=== PATIENT | male | born 1960 | race American Indian/Alaskan Native ===

== ENCOUNTER 2016-12-29 12:51 | Outpatient (CLI) | payer OTHER, MEDICARE ==
--- NOTE | 2016-12-29 14:55 | Cat Scan Report ---
CT PELVIS WITHOUT CONTRAST HISTORY: Abscess, left gluteal pain. FINDINGS: Helical CT without IV contrast was performed. There is nonspecific skin thickening and subcutaneous edema in the left gluteal region. No defined abscess or soft tissue gas is identified. There is fusion of the right SI joint and partial fusion of the left SI joint. No bony fracture, bony destruction or suspicious bone lesion is appreciated. There is moderate trabeculation of the bladder wall. No discrete bladder mass. The prostate gland is normal size. The visualized bowel loops and vascular structures in the pelvis are unremarkable. Normal appendix. No evidence for ascites or adenopathy. IMPRESSION: Findings consistent with a nonspecific cellulitis in the left gluteal region. No abscess is appreciated.
== END 2016-12-29 12:52 | disposition home or self-care (01) ==
LOC: CT 12:51
PROVIDERS: ATTEND Surgery
DX: L05.01 Pilonidal cyst with abscess (principal); N32.89 Other specified disorders of bladder; M79.1 Myalgia
CPT/HCPCS: 36415; 72192; 82565; 84520

== ENCOUNTER 2018-04-06 09:51 | Outpatient (CLI) | payer MEDICARE ==
[2018-04-06] MEDS ORDERED: XYLOCAINE TOPICAL 4% TP ONE ×2 (10:11→11:38)
[2018-04-06] MEDS ORDERED: SILVER NITRATE TP ONE ×2 (10:40→11:38)
== END 2018-04-06 09:52 | disposition home or self-care (01) ==
LOC: WOUND 09:51
PROVIDERS: ATTEND Surgery
DX: E11.622 Type 2 diabetes mellitus with other skin ulcer (principal); L89.323 Pressure ulcer of left buttock, stage 3; L98.411 Non-pressure chronic ulcer of buttock limited to breakdown of skin; L89.892 Pressure ulcer of other site, stage 2; L97.511 Non-pressure chronic ulcer of other part of right foot limited to breakdown of skin; I10 Essential (primary) hypertension; Z96.652 Presence of left artificial knee joint
CPT/HCPCS: 11042; 11045; G0463; 99215

== ENCOUNTER 2018-04-13 09:20 | Outpatient (CLI) | payer MEDICARE ==
[2018-04-13] MEDS ORDERED: XYLOCAINE TOPICAL 4% TP ONE ×2 (09:31→11:47)
== END 2018-04-13 09:21 | disposition home or self-care (01) ==
LOC: WOUND 09:20
PROVIDERS: ATTEND Surgery
DX: E11.622 Type 2 diabetes mellitus with other skin ulcer (principal); L89.323 Pressure ulcer of left buttock, stage 3; L98.411 Non-pressure chronic ulcer of buttock limited to breakdown of skin; L89.892 Pressure ulcer of other site, stage 2; L97.511 Non-pressure chronic ulcer of other part of right foot limited to breakdown of skin; I10 Essential (primary) hypertension; Z96.652 Presence of left artificial knee joint

== ENCOUNTER 2018-04-14 06:33 | Outpatient (CLI) | payer MEDICARE ==
--- NOTE | 2018-04-15 08:28 | Nuclear Medicine Report ---
TRIPLE PHASE BONE SCAN History: Right foot wound, Charcot's joint, M14.671 Technique: Blood flow, blood pool and delayed images were obtained of the right foot following 25.0 mCi of technetium 99m MDP. Findings: There are no relevant comparison studies. The perfusion images to the right lower extremity demonstrate homogeneous distribution of the radiotracer throughout the right ankle and foot region. The blood pool images demonstrate relatively homogeneous distribution of the radiotracer. There may be mild accumulation in the radiotracer on the plantar plantar soft tissues at the level of the midfoot. The delayed images demonstrate mild diffuse uptake of the radiotracer throughout the mid foot which is most suggestive of osteoarthritic changes or Charcot joint as noted in the history. No convincing focal bony uptake to suggest osteomyelitis. Impression: Cellulitis. No convincing osteomyelitis. See above. If further evaluation is needed, MRI with and without contrast should provide the most information.
== END 2018-04-14 06:34 | disposition home or self-care (01) ==
LOC: NM 06:33
PROVIDERS: ATTEND Registered Nurse
DX: M14.671 Charcot's joint, right ankle and foot (principal); I12.9 Hypertensive chronic kidney disease with stage 1 through stage 4 chronic kidney disease, or unspecified chronic kidney disease; E11.22 Type 2 diabetes mellitus with diabetic chronic kidney disease; N18.9 Chronic kidney disease, unspecified; Z89.519 Acquired absence of unspecified leg below knee; Z83.3 Family history of diabetes mellitus; Z86.2 Personal history of diseases of the blood and blood-forming organs and certain disorders involving the immune mechanism; Z82.61 Family history of arthritis
CPT/HCPCS: 78315; A9503

== ENCOUNTER 2018-04-27 09:37 | Outpatient (CLI) | payer MEDICARE ==
[2018-04-27] MEDS ORDERED: XYLOCAINE TOPICAL 4% TP ONE ×2 (10:20→14:30)
== END 2018-04-27 09:38 | disposition home or self-care (01) ==
LOC: WOUND 09:37
PROVIDERS: ATTEND Surgery
DX: E11.622 Type 2 diabetes mellitus with other skin ulcer (principal); L89.323 Pressure ulcer of left buttock, stage 3; L98.411 Non-pressure chronic ulcer of buttock limited to breakdown of skin; L89.892 Pressure ulcer of other site, stage 2; L97.511 Non-pressure chronic ulcer of other part of right foot limited to breakdown of skin; I10 Essential (primary) hypertension; Z96.652 Presence of left artificial knee joint

== ENCOUNTER 2018-05-04 09:34 | Outpatient (CLI) | payer MEDICARE ==
[2018-05-04] MEDS ORDERED: XYLOCAINE TOPICAL 4% TP ONE ×2 (09:44→09:45)
[2018-05-04] MEDS ORDERED: SILVER NITRATE TP ONE ×4 (10:06→11:07)
== END 2018-05-04 09:35 | disposition home or self-care (01) ==
LOC: WOUND 09:34
PROVIDERS: ATTEND Surgery
DX: E11.622 Type 2 diabetes mellitus with other skin ulcer (principal); L89.323 Pressure ulcer of left buttock, stage 3; L98.411 Non-pressure chronic ulcer of buttock limited to breakdown of skin; L89.892 Pressure ulcer of other site, stage 2; L97.511 Non-pressure chronic ulcer of other part of right foot limited to breakdown of skin; I10 Essential (primary) hypertension; Z96.652 Presence of left artificial knee joint

== ENCOUNTER 2018-05-18 09:45 | Outpatient (CLI) | payer MEDICARE ==
[2018-05-18] MEDS ORDERED: SILVER NITRATE TP ONE ×2 (10:20→11:02)
== END 2018-05-18 09:46 | disposition home or self-care (01) ==
LOC: WOUND 09:45
PROVIDERS: ATTEND Surgery
DX: E11.622 Type 2 diabetes mellitus with other skin ulcer (principal); L89.323 Pressure ulcer of left buttock, stage 3; L98.411 Non-pressure chronic ulcer of buttock limited to breakdown of skin; L89.892 Pressure ulcer of other site, stage 2; L97.511 Non-pressure chronic ulcer of other part of right foot limited to breakdown of skin; I10 Essential (primary) hypertension; Z96.652 Presence of left artificial knee joint

== ENCOUNTER 2018-09-07 09:29 | Outpatient (CLI) | payer MEDICARE ==
[2018-09-07] MEDS ORDERED: XYLOCAINE TOPICAL 4% TP ONE (09:33)
[2018-09-07] MEDS ORDERED: SILVER NITRATE TP ONE (09:58)
== END 2018-09-07 09:30 | disposition home or self-care (01) ==
LOC: WOUND 09:29
PROVIDERS: ATTEND Surgery
DX: E11.621 Type 2 diabetes mellitus with foot ulcer (principal); L89.893 Pressure ulcer of other site, stage 3; L97.512 Non-pressure chronic ulcer of other part of right foot with fat layer exposed; L89.323 Pressure ulcer of left buttock, stage 3; L84 Corns and callosities; L89.152 Pressure ulcer of sacral region, stage 2; L98.412 Non-pressure chronic ulcer of buttock with fat layer exposed; L98.491 Non-pressure chronic ulcer of skin of other sites limited to breakdown of skin; I10 Essential (primary) hypertension

== ENCOUNTER 2018-09-14 09:50 | Outpatient (CLI) | payer MEDICARE ==
[2018-09-14] MEDS ORDERED: SILVER NITRATE TP ONE (10:42)
== END 2018-09-14 09:51 | disposition home or self-care (01) ==
LOC: WOUND 09:50
PROVIDERS: ATTEND Surgery
DX: E11.621 Type 2 diabetes mellitus with foot ulcer (principal); L89.893 Pressure ulcer of other site, stage 3; L97.512 Non-pressure chronic ulcer of other part of right foot with fat layer exposed; L89.323 Pressure ulcer of left buttock, stage 3; L89.152 Pressure ulcer of sacral region, stage 2; L98.412 Non-pressure chronic ulcer of buttock with fat layer exposed; L98.491 Non-pressure chronic ulcer of skin of other sites limited to breakdown of skin; I10 Essential (primary) hypertension; L84 Corns and callosities

== ENCOUNTER 2018-09-21 09:37 | Outpatient (CLI) | payer MEDICARE ==
[2018-09-21] MEDS ORDERED: SILVER NITRATE TP ONE (09:44)
[2018-09-21] MEDS ORDERED: XYLOCAINE TOPICAL 4% TP ONE (09:44)
== END 2018-09-21 09:38 | disposition home or self-care (01) ==
LOC: WOUND 09:37
PROVIDERS: ATTEND Surgery
DX: E11.621 Type 2 diabetes mellitus with foot ulcer (principal); L97.512 Non-pressure chronic ulcer of other part of right foot with fat layer exposed; E11.622 Type 2 diabetes mellitus with other skin ulcer; L98.412 Non-pressure chronic ulcer of buttock with fat layer exposed; L89.323 Pressure ulcer of left buttock, stage 3; L98.491 Non-pressure chronic ulcer of skin of other sites limited to breakdown of skin; L89.152 Pressure ulcer of sacral region, stage 2; I10 Essential (primary) hypertension; Z89.512 Acquired absence of left leg below knee

== ENCOUNTER 2018-10-12 10:08 | Outpatient (CLI) | payer MEDICARE ==
[2018-10-12] MEDS ORDERED: SILVER NITRATE TP ONE (10:19)
[2018-10-12] MEDS ORDERED: XYLOCAINE TOPICAL 4% TP ONE (10:19)
== END 2018-10-12 10:09 | disposition home or self-care (01) ==
LOC: WOUND 10:08
PROVIDERS: ATTEND Surgery
DX: E11.621 Type 2 diabetes mellitus with foot ulcer (principal); L97.512 Non-pressure chronic ulcer of other part of right foot with fat layer exposed; E11.622 Type 2 diabetes mellitus with other skin ulcer; L98.412 Non-pressure chronic ulcer of buttock with fat layer exposed; L89.323 Pressure ulcer of left buttock, stage 3; L98.491 Non-pressure chronic ulcer of skin of other sites limited to breakdown of skin; L89.152 Pressure ulcer of sacral region, stage 2; I10 Essential (primary) hypertension; Z89.512 Acquired absence of left leg below knee

== ENCOUNTER 2018-11-09 10:02 | Outpatient (CLI) | payer MEDICARE ==
[2018-11-09] MEDS ORDERED: SILVER NITRATE TP ONE (10:26)
[2018-11-09] MEDS ORDERED: XYLOCAINE TOPICAL 4% TP ONE (10:26)
== END 2018-11-09 10:03 | disposition home or self-care (01) ==
LOC: WOUND 10:02
PROVIDERS: ATTEND Surgery
DX: E11.22 Type 2 diabetes mellitus with diabetic chronic kidney disease (principal); L89.323 Pressure ulcer of left buttock, stage 3; L98.412 Non-pressure chronic ulcer of buttock with fat layer exposed; E11.621 Type 2 diabetes mellitus with foot ulcer; L89.893 Pressure ulcer of other site, stage 3; L97.512 Non-pressure chronic ulcer of other part of right foot with fat layer exposed; L84 Corns and callosities; I10 Essential (primary) hypertension; Z89.512 Acquired absence of left leg below knee

== ENCOUNTER 2018-11-23 09:32 | Outpatient (CLI) | payer MEDICARE ==
[2018-11-23] MEDS ORDERED: SILVER NITRATE TP ONE (10:00)
[2018-11-23] MEDS ORDERED: XYLOCAINE TOPICAL 4% TP ONE (10:00)
== END 2018-11-23 09:33 | disposition home or self-care (01) ==
LOC: WOUND 09:32
PROVIDERS: ATTEND Surgery
DX: E11.622 Type 2 diabetes mellitus with other skin ulcer (principal); L89.323 Pressure ulcer of left buttock, stage 3; L98.412 Non-pressure chronic ulcer of buttock with fat layer exposed; E11.621 Type 2 diabetes mellitus with foot ulcer; L89.893 Pressure ulcer of other site, stage 3; L97.512 Non-pressure chronic ulcer of other part of right foot with fat layer exposed; L84 Corns and callosities; I10 Essential (primary) hypertension; Z89.512 Acquired absence of left leg below knee

== ENCOUNTER 2018-11-30 09:51 | Outpatient (CLI) | payer MEDICARE ==
[2018-11-30] MEDS ORDERED: XYLOCAINE TOPICAL 4% TP ONE (10:30)
[2018-11-30] MEDS ORDERED: SILVER NITRATE TP ONE (10:30)
== END 2018-11-30 09:52 | disposition home or self-care (01) ==
LOC: WOUND 09:51
PROVIDERS: ATTEND Surgery
DX: E11.621 Type 2 diabetes mellitus with foot ulcer (principal); L89.893 Pressure ulcer of other site, stage 3; L97.512 Non-pressure chronic ulcer of other part of right foot with fat layer exposed; E11.622 Type 2 diabetes mellitus with other skin ulcer; L89.323 Pressure ulcer of left buttock, stage 3; L98.411 Non-pressure chronic ulcer of buttock limited to breakdown of skin; L89.152 Pressure ulcer of sacral region, stage 2; L98.491 Non-pressure chronic ulcer of skin of other sites limited to breakdown of skin; I10 Essential (primary) hypertension; Z89.512 Acquired absence of left leg below knee

== ENCOUNTER 2018-12-07 10:04 | Outpatient (CLI) | payer MEDICARE ==
[2018-12-07] MEDS ORDERED: XYLOCAINE TOPICAL 4% TP ONE (11:00)
[2018-12-07] MEDS ORDERED: SILVER NITRATE TP ONE (11:00)
== END 2018-12-07 10:05 | disposition home or self-care (01) ==
LOC: WOUND 10:04
PROVIDERS: ATTEND Surgery
DX: E11.621 Type 2 diabetes mellitus with foot ulcer (principal); L89.893 Pressure ulcer of other site, stage 3; L97.512 Non-pressure chronic ulcer of other part of right foot with fat layer exposed; E11.622 Type 2 diabetes mellitus with other skin ulcer; L89.323 Pressure ulcer of left buttock, stage 3; L98.411 Non-pressure chronic ulcer of buttock limited to breakdown of skin; L89.152 Pressure ulcer of sacral region, stage 2; L98.491 Non-pressure chronic ulcer of skin of other sites limited to breakdown of skin; L84 Corns and callosities; I10 Essential (primary) hypertension; Z89.512 Acquired absence of left leg below knee

== ENCOUNTER 2018-12-09 10:05 | Day surgery (SDC) | payer MEDICARE ==
[2018-12-09] MEDS ORDERED: ceFAZolin 2 GM in NACL 0.9% 100 ML IV ONE (11:23)
[2018-12-09] MEDS ORDERED: HEPARIN SUB-Q NR (11:30)
[2018-12-09] MEDS ORDERED: LACTATED RINGERS 1,000 ML IV SCH (11:40)
[2018-12-09] MEDS ORDERED: ZEMURON IV ONE (11:59)
[2018-12-09] MEDS ORDERED: XYLOCAINE MPF 2% ONE (11:59)
[2018-12-09] MEDS ORDERED: DIPRIVAN 10 MG/ML IV ONE (11:59)
[2018-12-09] MEDS ORDERED: DILAUDID ONE (11:59)
[2018-12-09] MEDS ORDERED: LACTATED RINGERS 1,000 ML ONE (12:04)
[2018-12-09] MEDS ORDERED: ANCEF/STERILE WATER 2 GM/20 ML 2 GM/20 ML SYRINGE IV ONE (12:05)
[2018-12-09] MEDS ORDERED: MARCAINE-EPI 0.5%-1:200,000 INFILTRATI ONE ×3 (12:45→12:47)
[2018-12-09] MEDS ORDERED: ZOFRAN ONE (13:59)
[2018-12-09] MEDS ORDERED: BLOXIVERZ ONE (13:59)
[2018-12-09] MEDS ORDERED: ROBINUL ONE (13:59)
[2018-12-09] MEDS ORDERED: NACL 0.9% 1000 ML 1,000 ML ONE (14:08)
--- NOTE | 2018-12-09 14:23 | Post Operative Note ---
Pre-op diagnosis: Stage 2 pressure ulcer, sacrum Post-op diagnosis: same Procedure: Excision of left buttock sacral pressure ulcer with 19 cm intermediate closure Anesthesia: HOMEROA, other Surgeon: JAMES ROE Estimated blood loss: 50-100ml Pathology: list (sacral pressure ulcer) Specimen disposition: to lab Condition: stable Disposition: PACU
[2018-12-09 17:26] VITALS: BP 152/86
--- NOTE | 2018-12-09 17:39 | Anesthesia Consultation ---
Anesthesia Consult and Med Hx - Airway Anesthetic Teeth Evaluation: Poor ROM Head & Neck: Adequate Mental/Hyoid Distance: Adequate Intubation Access Assessment: Good - Pulmonary Exam CTA: Yes - Cardiac Exam Cardiac Exam: RRR - Pre-Operative Health Status ASA Pre-Surgery Classification: ASA3 Proposed Anesthetic Plan: General - Pulmonary Hx Smoking: No Hx Respiratory Symptoms: No SOB: No (h/o Sarcoidosis, in remission) - Cardiovascular System Hx Hypertension: Yes Hx Coronary Artery Disease: No Hx Heart Murmur: Yes Hx Peripheral Vascular Disease: Yes - Central Nervous System Hx Psychiatric Problems: No - Gastrointestinal Hx Gastroesophageal Reflux Disease: No - Endocrine Hx Renal Disease: Yes Hx Non-Insulin Dependent Diabetes: Yes (Diet controlled) - Hematic Hx Anemia: Yes (Transfused in 2005) - Other Systems Hx Cancer: No Hx Obesity: No
--- NOTE | 2018-12-09 17:39 | Anesthesia Day of Surgery ---
Anesthesia Day of Surgery - Day of Surgery Patient Examined: Yes Patient H&P Reviewed: Yes Patient is NPO: Yes
--- NOTE | 2018-12-09 17:39 | Post Anesthesia Evaluation ---
- Post Anesthesia Evaluation Patient Participated: Yes Airway Patent: Yes Stable Respiratory Function: Yes Nausea/Vomiting: No Temp > 96.8F: Yes Pain Manageable: Yes Adequeate Hydration: Yes Anesthesia Complications: No Block Receding Appropriately: Not Applicable Patient on Ventilator: No
--- NOTE | 2018-12-15 09:04 | Procedure Note ---
Date of procedure: 12/09/18 Pre-op diagnosis: Stage 2 sacral pressure ulcer - non-healing Post-op diagnosis: same Procedure: Excision of stage 2 sacral pressure ulcer with 19 cm intermediate closure Description of procedure: Pt underwent GETA while supine on the OR table. He was repositioned prone. Buttocks were prepped and draped. The sacral pressure ulcer was excised with scalpel and Bovie. Hemostasis was obtained with the Bovie. The resulting wound, measuring 19 cm in length was closed with interrupted, deep dermal sutures of 3-0 Vicryl and the skin was closed with a running 4-0 Nylon. Skin glue was applied. Pt tolerated the procedure well. He was extubated in the OR and was taken to PACU in stable condition. Anesthesia: GETA Surgeon: JAMES ROE Estimated blood loss: 50-100ml Pathology: list (Sacral pressure ulcer) Specimen disposition: to lab Condition: stable Disposition: PACU
== END 2018-12-09 10:06 | disposition home or self-care (01) ==
LOC: OR 10:05
PROVIDERS: ATTEND Surgery
DX: E11.622 Type 2 diabetes mellitus with other skin ulcer (principal); L89.322 Pressure ulcer of left buttock, stage 2; L89.152 Pressure ulcer of sacral region, stage 2; I12.9 Hypertensive chronic kidney disease with stage 1 through stage 4 chronic kidney disease, or unspecified chronic kidney disease; N18.3 Chronic kidney disease, stage 3 (moderate); E11.51 Type 2 diabetes mellitus with diabetic peripheral angiopathy without gangrene; E11.39 Type 2 diabetes mellitus with other diabetic ophthalmic complication; E11.22 Type 2 diabetes mellitus with diabetic chronic kidney disease; D72.829 Elevated white blood cell count, unspecified; H40.9 Unspecified glaucoma; I73.9 Peripheral vascular disease, unspecified; Z87.442 Personal history of urinary calculi; Z98.890 Other specified postprocedural states; Z83.3 Family history of diabetes mellitus; Z79.899 Other long term (current) drug therapy; Z89.519 Acquired absence of unspecified leg below knee; Z82.61 Family history of arthritis
CPT/HCPCS: 15931; 82962; 88304; J0690; J1170; J1644; J2405; J2704; J2710; J7030; J7120; 88305

== ENCOUNTER 2018-12-11 13:28 | Emergency (ER) | payer MEDICARE ==
--- NOTE | 2018-12-11 14:54 | Emergency Department Report ---
ED General Adult HPI - General Chief complaint: Laceration/Recheck/Suture Stated complaint: WOUND BLEED Time Seen by Provider: 12/11/18 14:33 Source: EMS Mode of arrival: Stretcher Limitations: Physical Limitation - History of Present Illness Initial comments: 58 year old male with sacral decubiti. Patient had the status opening of a primary closure of the area on 12/09/2018. This a.m. it opened. Patient denies any recent fever. He states he checked his sugar this morning was normal. He states he has a history of borderline diabetes but is not on medication. Review of his previous records show moderate chronic renal insufficiency. He has been a patient of the wound care clinic for quite some time. 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 - Related Data Home Medications Medication Instructions Recorded Confirmed Last Taken Pregabalin [Lyrica] 200 mg PO TID 05/29/16 12/09/18 12/08/18 21:00 Previous Rx's Medication Instructions Recorded Last Taken Type hydrALAZINE [Apresoline TAB] 25 mg PO Q8HR #90 tablet 08/25/14 12/08/18 21:00 Rx Acetaminophen/Codeine [Tylenol #3] 1 tab PO Q6H PRN #30 tab 04/27/16 05/28/16 Rx Sulfamethoxazole/Trimethoprim 1 each PO BID #14 tablet 12/11/18 Unknown Rx [Bactrim DS TAB] Allergies Allergy/AdvReac Type Severity Reaction Status Date / Time No Known Allergies Allergy Verified 01/05/15 14:31 ED Review of Systems ROS: Stated complaint: WOUND BLEED Other details as noted in HPI Constitutional: denies: chills, fever Eyes: denies: eye pain, eye discharge, vision change ENT: denies: ear pain, throat pain Respiratory: denies: cough, shortness of breath, wheezing Cardiovascular: denies: chest pain, palpitations Endocrine: no symptoms reported Gastrointestinal: denies: abdominal pain, nausea, diarrhea Genitourinary: denies: urgency, dysuria Musculoskeletal: denies: back pain, joint swelling, arthralgia Skin: denies: rash, lesions Neurological: denies: headache, weakness, paresthesias Psychiatric: denies: anxiety, depression Hematological/Lymphatic: denies: easy bleeding, easy bruising ED Past Medical Hx - Past Medical History Hx Hypertension: Yes Hx Diabetes: Yes Hx Renal Disease: Yes Hx Kidney Stones: Yes Hx HIV: No Additional medical history: sarcoidosis - in remission, Charcot footNEUROPATHY?? lesions on spine - Surgical History Past Surgical History?: Yes Additional Surgical History: 6 surgeries on feet due to staph infections, L BKA - Social History Smoking Status: Unknown if ever smoked Substance Use Type: None - Medications Home Medications: Home Medications Medication Instructions Recorded Confirmed Last Taken Type hydrALAZINE [Apresoline TAB] 25 mg PO Q8HR #90 tablet 08/25/14 12/09/18 12/08/18 21:00 Rx Acetaminophen/Codeine [Tylenol #3] 1 tab PO Q6H PRN #30 tab 04/27/16 12/09/18 05/28/16 Rx Pregabalin [Lyrica] 200 mg PO TID 05/29/16 12/09/18 12/08/18 21:00 History Sulfamethoxazole/Trimethoprim 1 each PO BID #14 tablet 12/11/18 Unknown Rx [Bactrim DS TAB] ED Physical Exam - General Limitations: Physical Limitation General appearance: alert - Head Head exam: Present: atraumatic - Eye Eye exam: Absent: scleral icterus - ENT ENT exam: Present: mucous membranes moist - Neck Neck exam: Absent: tenderness - Respiratory Respiratory exam: Present: normal lung sounds bilaterally. Absent: respiratory distress - Cardiovascular Cardiovascular Exam: Present: regular rate, normal rhythm. Absent: systolic murmur, diastolic murmur, rubs, gallop - GI/Abdominal GI/Abdominal exam: Present: soft, normal bowel sounds. Absent: distended, tenderness, guarding, rebound, rigid - Extremities Exam Extremities exam: Present: other (previous agitation and prosthesis.) - Neurological Exam Neurological exam: Present: CN II-XII intact (patient is able to dorsi and plantar flex his right foot with 55 strength.) - Psychiatric Psychiatric exam: Present: normal mood, flat affect - Skin Skin exam: Present: other (there is about 8 cm dehiscence of the sacral decubitus wound.Tissue is red and viable. There is no purulence. There is p erhaps some local warmth but no gross erythema.) ED Course Vital Signs 12/11/18 14:13 Temperature 98.2 F Pulse Rate 55 L Respiratory 18 Rate Blood Pressure 148/85 O2 Sat by Pulse 95 Oximetry - Reevaluation(s) Reevaluation #1: Discussed with Dr. Gee. Wet-to-dry dressings. Follow-up at the wound clinic. 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 ED Medical Decision Making - Lab Data Result diagrams: 12/11/18 15:07 12/11/18 15:07 Laboratory Results - last 24 hr 12/11/18 12/11/18 15:07 15:07 WBC 6.5 RBC 4.67 Hgb 13.6 Hct 40.0 MCV 86 MCH 29 MCHC 34 RDW 16.2 H Plt Count 128 L Lymph % (Auto) 35.6 H [place] % (Auto) 11.6 H Eos % (Auto) 6.6 H Baso % (Auto) 1.2 Lymph # 2.3 [place] # 0.8 Eos # 0.4 Baso # 0.1 Seg Neutrophils % 45.0 Seg Neutrophils # 2.9 Sodium 147 H Potassium 4.0 Chloride 109.4 H Carbon Dioxide 29 Anion Gap 13 BUN 23 H Creatinine 2.1 H Estimated GFR 40 BUN/Creatinine Ratio 11 Glucose 119 H Calcium 8.3 L Critical care attestation.: If time is entered above; I have spent that time in minutes in the direct care of this critically ill patient, excluding procedure time. ED Disposition Clinical Impression: Wound dehiscence, Chronic renal insufficiency, stage III (moderate) Sacral decubitus ulcer Qualifiers: Pressure injury stage: unspecified pressure injury stage Qualified Code(s): L89.159 - Pressure ulcer of sacral region, unspecified stage Disposition: - TO HOME OR SELFCARE Is pt being admited?: No Does the pt Need Aspirin: No Condition: Stable Instructions: Pressure Ulcer (ED), Acute Wound Care (ED) Additional Instructions: Follow-up with your primary care doctor. Increase fluids. Rx for Bactrim antibiotic. Wound care clinic on Thursday for further management per Dr. Gee. Prescriptions: Sulfamethoxazole/Trimethoprim [Bactrim DS TAB] 1 each PO BID #14 tablet Referrals: PRIMARY CARE, [Primary Care Provider] - 3-5 Days wound care, clinic Thursday [Other] - 2-3 Days Time of Disposition: 16:35
[2018-12-11 15:19] LABS: Basophils # (Auto) 0.1 K/mm3 (0.0-0.1); Basophils % (Auto) 1.2 % (0.0-1.8); Eosinophils # (Auto) 0.4 K/mm3 (0.0-0.4); Eosinophils % (Auto) 6.6 % (0.0-4.3); Hemoglobin 13.6 gm/dl (11.8-15.2); Lymphocytes # (Auto) 2.3 K/mm3 (1.2-5.4); Lymphocytes % (Auto) 35.6 % (13.4-35.0); Mean Corpuscular HGB Conc 34 % (32-34); Mean Corpuscular Volume 86 fl (84-94); Monocytes # (Auto) 0.8 K/mm3 (0.0-0.8); Monocytes % (Auto) 11.6 % (0.0-7.3); Platelet Count 128 K/mm3 (140-440); Red Blood Count 4.67 M/mm3 (3.65-5.03); Red Cell Distribution Width 16.2 % (13.2-15.2)
[2018-12-11 16:10] LABS: Calcium 8.3 mg/dL (8.4-10.2)
[2018-12-11 17:56] VITALS: BP 146/84
== END 2018-12-11 21:06 | disposition home or self-care (01) ==
LOC: ED 13:28
DX: T81.31XA Disruption of external operation (surgical) wound, not elsewhere classified, initial encounter (principal); L89.159 Pressure ulcer of sacral region, unspecified stage; I12.9 Hypertensive chronic kidney disease with stage 1 through stage 4 chronic kidney disease, or unspecified chronic kidney disease; E11.22 Type 2 diabetes mellitus with diabetic chronic kidney disease; N18.3 Chronic kidney disease, stage 3 (moderate); Y83.8 Other surgical procedures as the cause of abnormal reaction of the patient, or of later complication, without mention of misadventure at the time of the procedure; Y92.9 Unspecified place or not applicable
CPT/HCPCS: 36415; 80048; 85025; 99283

== ENCOUNTER 2018-12-29 08:39 | Outpatient (CLI) | payer MEDICARE ==
[2018-12-29] MEDS ORDERED: SILVER NITRATE TP ONE (09:30)
[2018-12-29] MEDS ORDERED: XYLOCAINE TOPICAL 4% TP ONE (09:30)
== END 2018-12-29 08:40 | disposition home or self-care (01) ==
LOC: WOUND 08:39
PROVIDERS: ATTEND Surgery
DX: E11.621 Type 2 diabetes mellitus with foot ulcer (principal); L89.893 Pressure ulcer of other site, stage 3; L97.512 Non-pressure chronic ulcer of other part of right foot with fat layer exposed; E11.622 Type 2 diabetes mellitus with other skin ulcer; L89.323 Pressure ulcer of left buttock, stage 3; L98.411 Non-pressure chronic ulcer of buttock limited to breakdown of skin; L89.152 Pressure ulcer of sacral region, stage 2; L98.491 Non-pressure chronic ulcer of skin of other sites limited to breakdown of skin; L84 Corns and callosities; I10 Essential (primary) hypertension; Z89.512 Acquired absence of left leg below knee

== ENCOUNTER 2019-01-04 10:12 | Outpatient (CLI) | payer MEDICARE ==
[2019-01-04] MEDS ORDERED: XYLOCAINE TOPICAL 4% TP ONE (11:00)
== END 2019-01-04 10:13 | disposition home or self-care (01) ==
LOC: WOUND 10:12
PROVIDERS: ATTEND Surgery
DX: E11.621 Type 2 diabetes mellitus with foot ulcer (principal); L89.893 Pressure ulcer of other site, stage 3; L97.512 Non-pressure chronic ulcer of other part of right foot with fat layer exposed; L89.323 Pressure ulcer of left buttock, stage 3; E11.622 Type 2 diabetes mellitus with other skin ulcer; L98.411 Non-pressure chronic ulcer of buttock limited to breakdown of skin; L89.152 Pressure ulcer of sacral region, stage 2; L98.491 Non-pressure chronic ulcer of skin of other sites limited to breakdown of skin; L84 Corns and callosities; I10 Essential (primary) hypertension; Z89.512 Acquired absence of left leg below knee

== ENCOUNTER 2019-01-11 10:05 | Outpatient (CLI) | payer MEDICARE ==
[2019-01-11] MEDS ORDERED: SILVER NITRATE TP ONE (11:41)
== END 2019-01-11 10:06 | disposition home or self-care (01) ==
LOC: WOUND 10:05
PROVIDERS: ATTEND Surgery
DX: E11.621 Type 2 diabetes mellitus with foot ulcer (principal); L89.893 Pressure ulcer of other site, stage 3; L97.512 Non-pressure chronic ulcer of other part of right foot with fat layer exposed; L89.323 Pressure ulcer of left buttock, stage 3; E11.622 Type 2 diabetes mellitus with other skin ulcer; L98.411 Non-pressure chronic ulcer of buttock limited to breakdown of skin; L89.152 Pressure ulcer of sacral region, stage 2; L98.491 Non-pressure chronic ulcer of skin of other sites limited to breakdown of skin; L84 Corns and callosities; Z89.512 Acquired absence of left leg below knee

== ENCOUNTER 2019-02-08 09:34 | Outpatient (CLI) | payer MEDICARE ==
[2019-02-08] MEDS ORDERED: XYLOCAINE TOPICAL 4% TP ONE (10:00)
[2019-02-08] MEDS ORDERED: SILVER NITRATE TP ONE (10:00)
== END 2019-02-08 09:35 | disposition home or self-care (01) ==
LOC: WOUND 09:34
PROVIDERS: ATTEND Surgery
DX: E11.621 Type 2 diabetes mellitus with foot ulcer (principal); L89.893 Pressure ulcer of other site, stage 3; L97.512 Non-pressure chronic ulcer of other part of right foot with fat layer exposed; L89.323 Pressure ulcer of left buttock, stage 3; E11.622 Type 2 diabetes mellitus with other skin ulcer; L98.411 Non-pressure chronic ulcer of buttock limited to breakdown of skin; L89.152 Pressure ulcer of sacral region, stage 2; L98.491 Non-pressure chronic ulcer of skin of other sites limited to breakdown of skin; L84 Corns and callosities; I10 Essential (primary) hypertension; Z89.512 Acquired absence of left leg below knee

== ENCOUNTER 2019-02-15 09:30 | Outpatient (CLI) | payer MEDICARE ==
[2019-02-15] MEDS ORDERED: SILVER NITRATE TP ONE (10:00)
[2019-02-15] MEDS ORDERED: XYLOCAINE TOPICAL 4% TP ONE (10:00)
== END 2019-02-15 09:31 | disposition home or self-care (01) ==
LOC: WOUND 09:30
PROVIDERS: ATTEND Surgery
DX: E11.621 Type 2 diabetes mellitus with foot ulcer (principal); L89.893 Pressure ulcer of other site, stage 3; L97.512 Non-pressure chronic ulcer of other part of right foot with fat layer exposed; L89.323 Pressure ulcer of left buttock, stage 3; E11.622 Type 2 diabetes mellitus with other skin ulcer; L98.411 Non-pressure chronic ulcer of buttock limited to breakdown of skin; L89.152 Pressure ulcer of sacral region, stage 2; L98.491 Non-pressure chronic ulcer of skin of other sites limited to breakdown of skin; L84 Corns and callosities; I10 Essential (primary) hypertension; Z89.512 Acquired absence of left leg below knee

== ENCOUNTER 2019-02-22 09:44 | Outpatient (CLI) | payer MEDICARE ==
[2019-02-22] MEDS ORDERED: XYLOCAINE TOPICAL 4% TP ONE (09:46)
[2019-02-22] MEDS ORDERED: SILVER NITRATE TP ONE (09:46)
== END 2019-02-22 09:45 | disposition home or self-care (01) ==
LOC: WOUND 09:44
PROVIDERS: ATTEND Surgery
DX: E11.621 Type 2 diabetes mellitus with foot ulcer (principal); L89.893 Pressure ulcer of other site, stage 3; L97.512 Non-pressure chronic ulcer of other part of right foot with fat layer exposed; L89.323 Pressure ulcer of left buttock, stage 3; E11.622 Type 2 diabetes mellitus with other skin ulcer; L98.411 Non-pressure chronic ulcer of buttock limited to breakdown of skin; L89.152 Pressure ulcer of sacral region, stage 2; L98.491 Non-pressure chronic ulcer of skin of other sites limited to breakdown of skin; L84 Corns and callosities; I10 Essential (primary) hypertension; Z89.512 Acquired absence of left leg below knee

== ENCOUNTER 2019-03-08 09:38 | Outpatient (CLI) | payer MEDICARE ==
[2019-03-08] MEDS ORDERED: SILVER NITRATE TP ONE (10:30)
[2019-03-08] MEDS ORDERED: XYLOCAINE TOPICAL 4% TP ONE (10:30)
== END 2019-03-08 09:39 | disposition home or self-care (01) ==
LOC: WOUND 09:38
PROVIDERS: ATTEND Surgery
DX: E11.622 Type 2 diabetes mellitus with other skin ulcer (principal); L89.323 Pressure ulcer of left buttock, stage 3; L98.412 Non-pressure chronic ulcer of buttock with fat layer exposed; E11.621 Type 2 diabetes mellitus with foot ulcer; L89.893 Pressure ulcer of other site, stage 3; L97.512 Non-pressure chronic ulcer of other part of right foot with fat layer exposed; L89.152 Pressure ulcer of sacral region, stage 2; L98.491 Non-pressure chronic ulcer of skin of other sites limited to breakdown of skin; L84 Corns and callosities; I10 Essential (primary) hypertension; Z89.512 Acquired absence of left leg below knee

== ENCOUNTER 2019-03-15 09:36 | Outpatient (CLI) | payer MEDICARE ==
[2019-03-15] MEDS ORDERED: SILVER NITRATE TP ONE (10:30)
== END 2019-03-15 09:37 | disposition home or self-care (01) ==
LOC: WOUND 09:36
PROVIDERS: ATTEND Surgery
DX: E11.622 Type 2 diabetes mellitus with other skin ulcer (principal); L89.323 Pressure ulcer of left buttock, stage 3; L98.412 Non-pressure chronic ulcer of buttock with fat layer exposed; E11.621 Type 2 diabetes mellitus with foot ulcer; L89.893 Pressure ulcer of other site, stage 3; L97.512 Non-pressure chronic ulcer of other part of right foot with fat layer exposed; L89.152 Pressure ulcer of sacral region, stage 2; L98.491 Non-pressure chronic ulcer of skin of other sites limited to breakdown of skin; L84 Corns and callosities; I10 Essential (primary) hypertension; Z89.512 Acquired absence of left leg below knee

== ENCOUNTER 2019-03-29 09:35 | Outpatient (CLI) | payer MEDICARE ==
[2019-03-29] MEDS ORDERED: SILVER NITRATE TP ONE (10:00)
[2019-03-29] MEDS ORDERED: XYLOCAINE TOPICAL 4% TP ONE (10:00)
== END 2019-03-29 09:36 | disposition home or self-care (01) ==
LOC: WOUND 09:35
PROVIDERS: ATTEND Surgery
DX: E11.622 Type 2 diabetes mellitus with other skin ulcer (principal); L89.323 Pressure ulcer of left buttock, stage 3; L98.412 Non-pressure chronic ulcer of buttock with fat layer exposed; E11.621 Type 2 diabetes mellitus with foot ulcer; L89.893 Pressure ulcer of other site, stage 3; L97.512 Non-pressure chronic ulcer of other part of right foot with fat layer exposed; L89.152 Pressure ulcer of sacral region, stage 2; L98.491 Non-pressure chronic ulcer of skin of other sites limited to breakdown of skin; L84 Corns and callosities; I10 Essential (primary) hypertension; Z89.512 Acquired absence of left leg below knee

== ENCOUNTER 2019-05-10 09:29 | Outpatient (CLI) | payer MEDICARE ==
[2019-05-10] MEDS ORDERED: SILVER NITRATE TP ONE (09:41)
[2019-05-10] MEDS ORDERED: XYLOCAINE TOPICAL 4% TP ONE (09:41)
== END 2019-05-10 09:30 | disposition home or self-care (01) ==
LOC: WOUND 09:29
PROVIDERS: ATTEND Surgery
DX: E11.622 Type 2 diabetes mellitus with other skin ulcer (principal); L89.323 Pressure ulcer of left buttock, stage 3; L98.492 Non-pressure chronic ulcer of skin of other sites with fat layer exposed; L89.153 Pressure ulcer of sacral region, stage 3; E11.621 Type 2 diabetes mellitus with foot ulcer; L89.893 Pressure ulcer of other site, stage 3; L97.512 Non-pressure chronic ulcer of other part of right foot with fat layer exposed; I10 Essential (primary) hypertension; Z89.512 Acquired absence of left leg below knee

== ENCOUNTER 2019-05-24 09:29 | Outpatient (CLI) | payer MEDICARE ==
[2019-05-24] MEDS ORDERED: LIDOCAINE (4%) 40 MG/ML TOPICAL SOLN 50 ML BOTTLE TP NR (10:15)
[2019-05-24] MEDS ORDERED: SILVER NITRATE APPLICATOR 1 EA TP NR (10:15)
== END 2019-05-24 09:30 | disposition home or self-care (01) ==
LOC: WOUND 09:29
PROVIDERS: ATTEND Surgery
DX: E11.622 Type 2 diabetes mellitus with other skin ulcer (principal); L89.323 Pressure ulcer of left buttock, stage 3; L98.492 Non-pressure chronic ulcer of skin of other sites with fat layer exposed; L89.153 Pressure ulcer of sacral region, stage 3; E11.621 Type 2 diabetes mellitus with foot ulcer; L89.893 Pressure ulcer of other site, stage 3; L97.512 Non-pressure chronic ulcer of other part of right foot with fat layer exposed; I10 Essential (primary) hypertension; Z89.512 Acquired absence of left leg below knee

== ENCOUNTER 2019-05-31 09:31 | Outpatient (CLI) | payer MEDICARE ==
[2019-05-31] MEDS ORDERED: LIDOCAINE (4%) 40 MG/ML TOPICAL SOLN 50 ML BOTTLE TP ONE (10:00)
== END 2019-05-31 09:32 | disposition home or self-care (01) ==
LOC: WOUND 09:31
PROVIDERS: ATTEND Surgery
DX: E11.622 Type 2 diabetes mellitus with other skin ulcer (principal); L89.323 Pressure ulcer of left buttock, stage 3; L98.492 Non-pressure chronic ulcer of skin of other sites with fat layer exposed; L89.153 Pressure ulcer of sacral region, stage 3; E11.621 Type 2 diabetes mellitus with foot ulcer; L89.893 Pressure ulcer of other site, stage 3; L97.512 Non-pressure chronic ulcer of other part of right foot with fat layer exposed; I10 Essential (primary) hypertension; Z89.512 Acquired absence of left leg below knee

== ENCOUNTER 2019-06-07 09:49 | Outpatient (CLI) | payer MEDICARE ==
[2019-06-07] MEDS ORDERED: LIDOCAINE (4%) 40 MG/ML TOPICAL SOLN 50 ML BOTTLE TP ONE (10:30)
== END 2019-06-07 09:50 | disposition home or self-care (01) ==
LOC: WOUND 09:49
PROVIDERS: ATTEND Surgery
DX: E11.622 Type 2 diabetes mellitus with other skin ulcer (principal); L89.323 Pressure ulcer of left buttock, stage 3; L98.492 Non-pressure chronic ulcer of skin of other sites with fat layer exposed; L89.153 Pressure ulcer of sacral region, stage 3; E11.621 Type 2 diabetes mellitus with foot ulcer; L89.893 Pressure ulcer of other site, stage 3; L97.512 Non-pressure chronic ulcer of other part of right foot with fat layer exposed; I10 Essential (primary) hypertension; Z89.512 Acquired absence of left leg below knee

== ENCOUNTER 2019-06-28 09:36 | Outpatient (CLI) | payer MEDICARE ==
[2019-06-28] MEDS ORDERED: LIDOCAINE (4%) 40 MG/ML TOPICAL SOLN 50 ML BOTTLE TP ONE (10:00)
[2019-06-28] MEDS ORDERED: SILVER NITRATE APPLICATOR 1 EA TP ONE (11:30)
== END 2019-06-28 09:37 | disposition home or self-care (01) ==
LOC: WOUND 09:36
PROVIDERS: ATTEND Surgery
DX: E11.622 Type 2 diabetes mellitus with other skin ulcer (principal); L89.323 Pressure ulcer of left buttock, stage 3; L98.492 Non-pressure chronic ulcer of skin of other sites with fat layer exposed; L89.153 Pressure ulcer of sacral region, stage 3; E11.621 Type 2 diabetes mellitus with foot ulcer; L89.893 Pressure ulcer of other site, stage 3; L97.512 Non-pressure chronic ulcer of other part of right foot with fat layer exposed; I10 Essential (primary) hypertension; Z89.512 Acquired absence of left leg below knee

== ENCOUNTER 2019-07-05 09:35 | Outpatient (CLI) | payer MEDICARE ==
[2019-07-05] MEDS ORDERED: LIDOCAINE (4%) 40 MG/ML TOPICAL SOLN 50 ML BOTTLE TP ONE (10:00)
== END 2019-07-05 09:36 | disposition home or self-care (01) ==
LOC: WOUND 09:35
PROVIDERS: ATTEND Surgery
DX: E11.622 Type 2 diabetes mellitus with other skin ulcer (principal); L89.323 Pressure ulcer of left buttock, stage 3; L98.492 Non-pressure chronic ulcer of skin of other sites with fat layer exposed; L89.153 Pressure ulcer of sacral region, stage 3; E11.621 Type 2 diabetes mellitus with foot ulcer; L89.893 Pressure ulcer of other site, stage 3; L97.512 Non-pressure chronic ulcer of other part of right foot with fat layer exposed; I10 Essential (primary) hypertension; Z89.512 Acquired absence of left leg below knee

== ENCOUNTER 2019-07-12 09:51 | Outpatient (CLI) | payer MEDICARE ==
[2019-07-12] MEDS ORDERED: LIDOCAINE (4%) 40 MG/ML TOPICAL SOLN 50 ML BOTTLE TP ONE (10:30)
== END 2019-07-12 09:52 | disposition home or self-care (01) ==
LOC: WOUND 09:51
PROVIDERS: ATTEND Surgery
DX: E11.622 Type 2 diabetes mellitus with other skin ulcer (principal); L89.323 Pressure ulcer of left buttock, stage 3; L98.492 Non-pressure chronic ulcer of skin of other sites with fat layer exposed; L89.153 Pressure ulcer of sacral region, stage 3; E11.621 Type 2 diabetes mellitus with foot ulcer; L89.893 Pressure ulcer of other site, stage 3; L97.512 Non-pressure chronic ulcer of other part of right foot with fat layer exposed; I10 Essential (primary) hypertension; Z89.512 Acquired absence of left leg below knee

== ENCOUNTER 2019-08-02 09:40 | Outpatient (CLI) | payer MEDICARE ==
[2019-08-02] MEDS ORDERED: LIDOCAINE (4%) 40 MG/ML TOPICAL SOLN 50 ML BOTTLE TP ONE (10:26)
[2019-08-02] MEDS ORDERED: SILVER NITRATE APPLICATOR 1 EA TP ONE (15:51)
== END 2019-08-02 09:41 | disposition home or self-care (01) ==
LOC: WOUND 09:40
PROVIDERS: ATTEND Surgery
DX: E11.622 Type 2 diabetes mellitus with other skin ulcer (principal); L89.323 Pressure ulcer of left buttock, stage 3; L98.492 Non-pressure chronic ulcer of skin of other sites with fat layer exposed; L89.153 Pressure ulcer of sacral region, stage 3; E11.621 Type 2 diabetes mellitus with foot ulcer; L89.893 Pressure ulcer of other site, stage 3; L97.512 Non-pressure chronic ulcer of other part of right foot with fat layer exposed; I10 Essential (primary) hypertension; Z89.512 Acquired absence of left leg below knee

== ENCOUNTER 2019-08-16 10:00 | Outpatient (CLI) | payer MEDICARE ==
[2019-08-16] MEDS ORDERED: LIDOCAINE (4%) 40 MG/ML TOPICAL SOLN 50 ML BOTTLE TP ONE (10:44)
[2019-08-16] MEDS ORDERED: SILVER NITRATE APPLICATOR 1 EA TP ONE (14:34)
== END 2019-08-16 10:01 | disposition home or self-care (01) ==
LOC: WOUND 10:00
PROVIDERS: ATTEND Surgery
DX: E11.622 Type 2 diabetes mellitus with other skin ulcer (principal); L89.323 Pressure ulcer of left buttock, stage 3; L98.492 Non-pressure chronic ulcer of skin of other sites with fat layer exposed; E11.621 Type 2 diabetes mellitus with foot ulcer; L97.512 Non-pressure chronic ulcer of other part of right foot with fat layer exposed; L89.153 Pressure ulcer of sacral region, stage 3; I10 Essential (primary) hypertension; Z89.512 Acquired absence of left leg below knee

== ENCOUNTER 2019-08-30 10:17 | Outpatient (CLI) | payer MEDICARE ==
[2019-08-30] MEDS ORDERED: LIDOCAINE (4%) 40 MG/ML TOPICAL SOLN 50 ML BOTTLE TP ONE (11:00)
== END 2019-08-30 10:18 | disposition home or self-care (01) ==
LOC: WOUND 10:17
PROVIDERS: ATTEND Surgery
DX: E11.622 Type 2 diabetes mellitus with other skin ulcer (principal); L89.323 Pressure ulcer of left buttock, stage 3; L98.492 Non-pressure chronic ulcer of skin of other sites with fat layer exposed; E11.621 Type 2 diabetes mellitus with foot ulcer; L97.512 Non-pressure chronic ulcer of other part of right foot with fat layer exposed; L89.152 Pressure ulcer of sacral region, stage 2; I10 Essential (primary) hypertension; Z89.512 Acquired absence of left leg below knee

== ENCOUNTER 2019-09-06 09:47 | Outpatient (CLI) | payer MEDICARE ==
[2019-09-06] MEDS ORDERED: LIDOCAINE (4%) 40 MG/ML TOPICAL SOLN 50 ML BOTTLE TP ONE (10:30)
== END 2019-09-06 09:48 | disposition home or self-care (01) ==
LOC: WOUND 09:47
PROVIDERS: ATTEND Surgery
DX: E11.622 Type 2 diabetes mellitus with other skin ulcer (principal); L89.323 Pressure ulcer of left buttock, stage 3; L98.492 Non-pressure chronic ulcer of skin of other sites with fat layer exposed; E11.621 Type 2 diabetes mellitus with foot ulcer; L97.512 Non-pressure chronic ulcer of other part of right foot with fat layer exposed; L89.152 Pressure ulcer of sacral region, stage 2; I10 Essential (primary) hypertension; Z89.512 Acquired absence of left leg below knee

== ENCOUNTER 2019-09-13 09:53 | Outpatient (CLI) | payer MEDICARE ==
[2019-09-13] MEDS ORDERED: LIDOCAINE (4%) 40 MG/ML TOPICAL SOLN 50 ML BOTTLE TP ONE (10:40)
== END 2019-09-13 09:54 | disposition home or self-care (01) ==
LOC: WOUND 09:53
PROVIDERS: ATTEND Surgery
DX: E11.622 Type 2 diabetes mellitus with other skin ulcer (principal); L89.323 Pressure ulcer of left buttock, stage 3; L98.492 Non-pressure chronic ulcer of skin of other sites with fat layer exposed; E11.621 Type 2 diabetes mellitus with foot ulcer; L97.512 Non-pressure chronic ulcer of other part of right foot with fat layer exposed; L89.152 Pressure ulcer of sacral region, stage 2; I10 Essential (primary) hypertension; L89.512 Pressure ulcer of right ankle, stage 2

== ENCOUNTER 2019-09-27 09:41 | Outpatient (CLI) | payer MEDICARE ==
[2019-09-27] MEDS ORDERED: LIDOCAINE (4%) 40 MG/ML TOPICAL SOLN 50 ML BOTTLE TP ONE (10:30)
== END 2019-09-27 09:42 | disposition home or self-care (01) ==
LOC: WOUND 09:41
PROVIDERS: ATTEND Surgery
DX: E11.622 Type 2 diabetes mellitus with other skin ulcer (principal); L89.323 Pressure ulcer of left buttock, stage 3; L98.492 Non-pressure chronic ulcer of skin of other sites with fat layer exposed; E11.621 Type 2 diabetes mellitus with foot ulcer; L97.512 Non-pressure chronic ulcer of other part of right foot with fat layer exposed; L89.152 Pressure ulcer of sacral region, stage 2; L89.512 Pressure ulcer of right ankle, stage 2; I10 Essential (primary) hypertension

== ENCOUNTER 2019-10-11 09:11 | Outpatient (CLI) | payer MEDICARE ==
[2019-10-11] MEDS ORDERED: SILVER NITRATE APPLICATOR 1 EA TP ONE (10:00)
[2019-10-11] MEDS ORDERED: LIDOCAINE (4%) 40 MG/ML TOPICAL SOLN 50 ML BOTTLE TP ONE (10:00)
== END 2019-10-11 09:12 | disposition home or self-care (01) ==
LOC: WOUND 09:11
PROVIDERS: ATTEND Surgery
DX: E11.622 Type 2 diabetes mellitus with other skin ulcer (principal); L89.323 Pressure ulcer of left buttock, stage 3; L98.492 Non-pressure chronic ulcer of skin of other sites with fat layer exposed; E11.621 Type 2 diabetes mellitus with foot ulcer; L97.512 Non-pressure chronic ulcer of other part of right foot with fat layer exposed; L89.152 Pressure ulcer of sacral region, stage 2; L89.512 Pressure ulcer of right ankle, stage 2; I10 Essential (primary) hypertension

== ENCOUNTER 2019-10-28 08:05 | Inpatient (IN) | payer MEDICARE ==
[2019-10-28 09:19] LABS: Basophils % (Auto) 0.5 % (0.0-1.8); Hematocrit 40.4 % (35.5-45.6); Hemoglobin 13.2 gm/dl (11.8-15.2); Lymphocytes # (Auto) 0.8 K/mm3 (1.2-5.4); Lymphocytes % (Auto) 11.9 % (13.4-35.0); Mean Corpuscular HGB Conc 33 % (32-34); Mean Corpuscular Volume 79 fl (84-94); Monocytes # (Auto) 0.6 K/mm3 (0.0-0.8); Monocytes % (Auto) 8.5 % (0.0-7.3); Platelet Count 158 K/mm3 (140-440); Red Cell Distribution Width 20.1 % (13.2-15.2)
[2019-10-28 09:39] LABS: Calcium 8.6 mg/dL (8.4-10.2)
--- NOTE | 2019-10-28 10:03 | Emergency Department Report ---
ED General Adult HPI - General Chief complaint: Nausea/Vomiting/Diarrhea Stated complaint: WEAKNESS/FALL Time Seen by Provider: 10/28/19 09:28 Source: patient, EMS Mode of arrival: Stretcher Limitations: Physical Limitation - History of Present Illness Initial comments: Patient presents from a local intermediate with a chief complaint of a dry cough x1 week and diarrhea. When asked about his symptoms the patient only complains that his wound care nurse cannot see him currently due to the virus. Patient denies any chest pain, abdominal pain, or headache. Per report there has been COVID 19 cases at his intermediate -: unknown Severity scale (0 -10): 0 Improves with: none Worsens with: none Associated Symptoms: denies other symptoms - Related Data Home Medications Medication Instructions Recorded Confirmed Last Taken Pregabalin [Lyrica] 200 mg PO TID 05/29/16 12/09/18 12/08/18 21:00 Previous Rx's Medication Instructions Recorded Last Taken Type hydrALAZINE [Apresoline TAB] 25 mg PO Q8HR #90 tablet 08/25/14 12/08/18 21:00 Rx Acetaminophen/Codeine [Tylenol #3] 1 tab PO Q6H PRN #30 tab 04/27/16 05/28/16 Rx Sulfamethoxazole/Trimethoprim 1 each PO BID #14 tablet 12/11/18 Unknown Rx [Bactrim DS TAB] Allergies Allergy/AdvReac Type Severity Reaction Status Date / Time No Known Allergies Allergy Verified 01/05/15 14:31 ED Review of Systems ROS: Stated complaint: WEAKNESS/FALL Other details as noted in HPI Constitutional: denies: chills, fever Eyes: denies: eye pain, eye discharge, vision change ENT: denies: ear pain, throat pain Respiratory: cough. denies: shortness of breath, wheezing Cardiovascular: denies: chest pain, palpitations Endocrine: no symptoms reported Gastrointestinal: diarrhea. denies: abdominal pain, nausea Genitourinary: denies: urgency, dysuria Musculoskeletal: denies: back pain, joint swelling, arthralgia Skin: denies: rash, lesions Neurological: denies: headache, weakness, paresthesias Psychiatric: denies: anxiety, depression Hematological/Lymphatic: denies: easy bleeding, easy bruising ED Past Medical Hx - Past Medical History Hx Hypertension: Yes Hx Diabetes: Yes Hx Renal Disease: Yes Hx Kidney Stones: Yes Hx HIV: No Additional medical history: sarcoidosis - in remission, Charcot footNEUROPATHY?? lesions on spine - Surgical History Additional Surgical History: 6 surgeries on feet due to staph infections, L BKA - Social History Smoking Status: Never Smoker Substance Use Type: None - Medications Home Medications: Home Medications Medication Instructions Recorded Confirmed Last Taken Type hydrALAZINE [Apresoline TAB] 25 mg PO Q8HR #90 tablet 08/25/14 12/09/18 12/08/18 21:00 Rx Acetaminophen/Codeine [Tylenol #3] 1 tab PO Q6H PRN #30 tab 04/27/16 12/09/18 05/28/16 Rx Pregabalin [Lyrica] 200 mg PO TID 05/29/16 12/09/18 12/08/18 21:00 History Sulfamethoxazole/Trimethoprim 1 each PO BID #14 tablet 12/11/18 Unknown Rx [Bactrim DS TAB] ED Physical Exam - General Limitations: Physical Limitation General appearance: alert, in no apparent distress - Head Head exam: Present: atraumatic, normocephalic - Eye Eye exam: Present: normal appearance, PERRL, EOMI - ENT ENT exam: Present: mucous membranes moist - Neck Neck exam: Present: normal inspection - Respiratory Respiratory exam: Present: normal lung sounds bilaterally. Absent: respiratory distress - Cardiovascular Cardiovascular Exam: Present: regular rate, normal rhythm. Absent: systolic murmur, diastolic murmur, rubs, gallop - GI/Abdominal GI/Abdominal exam: Present: soft, normal bowel sounds, other (Decubitus ulcer of the sacrumunstageable). Absent: distended, tenderness - Rectal Rectal exam: Present: deferred - Extremities Exam Extremities exam: Present: normal inspection, other (Decubitus ulcers to bilateral heels) - Back Exam Back exam: Present: normal inspection - Neurological Exam Neurological exam: Present: alert, oriented X3 - Psychiatric Psychiatric exam: Present: normal affect, normal mood - Skin Skin exam: Present: warm, dry, intact, normal color. Absent: rash ED Course Vital Signs 10/28/19 09:00 Temperature 98.8 F Pulse Rate 82 Respiratory 15 Rate Blood Pressure 97/55 O2 Sat by Pulse 94 Oximetry ED Medical Decision Making - Lab Data Result diagrams: 10/28/19 08:15 10/28/19 08:15 Lab Results 10/28/19 10/28/19 10/28/19 Range/Units 08:15 08:15 11:22 WBC 6.5 (4.5-11.0) K/mm3 RBC 5.10 H (3.65-5.03) M/mm3 Hgb 13.2 (11.8-15.2) gm/dl Hct 40.4 (35.5-45.6) % MCV 79 L (84-94) fl MCH 26 L (28-32) pg MCHC 33 (32-34) % RDW 20.1 H (13.2-15.2) % Plt Count 158 (140-440) K/mm3 Lymph % (Auto) 11.9 L (13.4-35.0) % [place] % (Auto) 8.5 H (0.0-7.3) % Eos % (Auto) 0.0 (0.0-4.3) % Baso % (Auto) 0.5 (0.0-1.8) % Lymph # 0.8 L (1.2-5.4) K/mm3 [place] # 0.6 (0.0-0.8) K/mm3 Eos # 0.0 (0.0-0.4) K/mm3 Baso # 0.0 (0.0-0.1) K/mm3 Seg Neutrophils % 79.1 H (40.0-70.0) % Seg Neutrophils # 5.1 (1.8-7.7) K/mm3 Sodium 141 (137-145) mmol/L Potassium 5.9 H (3.6-5.0) mmol/L Chloride 107.4 H (98-107) mmol/L Carbon Dioxide 15 L (22-30) mmol/L Anion Gap 25 mmol/L BUN 117 H (9-20) mg/dL Creatinine 6.1 H (0.8-1.5) mg/dL Estimated GFR 12 ml/min BUN/Creatinine Ratio 19 % Glucose 40 L (75-100) mg/dL Calcium 8.6 (8.4-10.2) mg/dL Total Bilirubin 0.40 (0.1-1.2) mg/dL AST 233 H (5-40) units/L ALT 60 H (7-56) units/L Alkaline Phosphatase 92 (35-129) units/L Total Protein 8.0 (6.3-8.2) g/dL Albumin 2.9 L (3.9-5) g/dL Albumin/Globulin Ratio 0.6 % Lipase 89 H (13-60) units/L - Radiology Data Radiology results: report reviewed - Medical Decision Making COVID 19 laboratory studies done IV antibiotics given Patient will be admitted Critical Care Time: Yes Critical care time in (mins) excluding proc time.: 35 Critical care attestation.: If time is entered above; I have spent that time in minutes in the direct care of this critically ill patient, excluding procedure time. ED Disposition Clinical Impression: Bilateral pneumonia Disposition: OP ADMIT IP TO THIS HOSP Is pt being admited?: Yes Does the pt Need Aspirin: No Condition: Fair Referrals: PRIMARY CARE, [Primary Care Provider] - 3-5 Days
[2019-10-28] MEDS ORDERED: DEXTROSE 50% IN WATER (25GM) 50 ML SYRINGE IV ONE ×2 (10:37→11:00)
[2019-10-28] MEDS ORDERED: DEXTROSE 50% IN WATER (25GM) 50 ML VIAL IV ONE (10:45)
--- NOTE | 2019-10-28 11:45 | Cat Scan Report ---
CT CHEST WITHOUT CONTRAST INDICATION: Cough, pneumonia. Patient is a resident of a detention with COVID19 patients. TECHNIQUE: Axial CT images were obtained through the chest without contrast. Lack of IV contrast limits evaluati on of the vascular and solid organs. Coronal and sagittal reformats were produced. All CT scans at is location are performed using CT dose reduction for ALARA by means of automated exposure control. COMPARISON: 2 views of the chest from 09/26/2015. FINDINGS: Motion artifact limits the study. MEDIASTINUM: Multiple shotty mediastinal nodes are seen without a suspicious mass. Multiple calcified mediastinal nodes are also noted. No additional significant abnormality. HEART: No significant abnormality. THORACIC AORTA AND ARTERIES: No significant abnormality. LUNGS: Scattered ground glass opacities are seen throughout the upper and middle lobes with more dens e generalized areas of consolidation seen along the right middle lobe, lingula and the lower lobes. N o suspicious nodule or mass is seen. No pneumothorax or pleural effusion is identified. ADDITIONAL FINDINGS: None. UPPER ABDOMEN: No significant abnormality. SKELETAL SYSTEM: No significant abnormality. IMPRESSION: Findings consistent with bilateral pneumonia of uncertain etiology. Typical and atypical bacterial an d viral etiologies should both be considered. Signer Name: Ozzie Serrano MD Signed: 10/28/2019 11:40 AM Workstation Name: [id number]
--- NOTE | 2019-10-28 11:50 | Cat Scan Report ---
CT ABDOMEN AND PELVIS WITHOUT CONTRAST INDICATION: Abdominal pain. Cough. Pneumonia. COMPARISON: CT pelvis without contrast from 12/29/2016. TECHNIQUE: Axial, coronal and sagittal CT imaging of the abdomen and pelvis was performed without co ntrast. Lack of intravenous contrast limits evaluation of the vascular and solid organs. All CT sca ns at this location are performed using CT dose reduction for ALARA by means of automated exposure co ntrol. FINDINGS: Motion artifact limits this study. LOWER CHEST: Bibasilar consolidations are present. No additional significant abnormality. LIVER: No significant abnormality. BILIARY: No significant abnormality. PANCREAS: No significant abnormality. SPLEEN: No significant abnormality. ADRENALS: No significant abnormality. KIDNEYS AND URETERS: There is severe bilateral hydroureteronephrosis without visualization of an obst ructive stone or mass. Mild to moderate bilateral renal cortical thinning is noted. No additional sig nificant abnormality. GI TRACT: Liquid stool is seen along the colon without an additional significant abnormality of the c olon, appendix, small bowel or stomach. PERITONEUM: No free fluid. No free air. No fluid collection. LYMPH NODES: No significant adenopathy. VASCULATURE: There is mild generalized atherosclerosis without an additional significant abnormality. URINARY BLADDER: Mild to moderate distention of the bladder is noted without an additional significan t abnormality. REPRODUCTIVE ORGANS: No significant abnormality. ADDITIONAL FINDINGS: None. SKELETAL SYSTEM: No acute abnormality. IMPRESSION: 1. Severe bilateral hydroureteronephrosis with distention of the bladder may represent urinary retent ion. Please correlate with the clinical findings. 2. Findings consistent with bibasilar pneumonia. Please see the report for the CT of the chest perfor [facility] for further details. Signer Name: Ozzie Serrano MD Signed: 10/28/2019 11:46 AM Workstation Name: [id number]
[2019-10-28 12:25] LABS: Alanine Aminotransferase 60 units/L (7-56); Albumin 2.9 g/dL (3.9-5)
[2019-10-28] MEDS ORDERED: CEFEPIME/NS 2 GM/100 ML 2 GM/100 ML BAG IV ONE (13:08)
--- NOTE | 2019-10-28 13:08 | History and Physical Report ---
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 Patient is confused/lethargic and unable to provide detailed history at the time of my evaluation. Patient history taken from EMS, ED staff, and [facility] staff. As per staff the patient had experienced worsening confusion, increased weakness, dry cough, and multiple loose stools over the past week with worsening of the aforementioned symptoms over the last 2 days. EMS notified and upon arrival the patient was found to be in distress and subsequently transported to [facility] for further evaluation and care. Patient seen and evaluated in the emergency department. Lab and imaging studies reviewed. Patient found to have bilateral diffuse infiltrates on his chest x-ray consistent with bilateral interstitial pneumonia commonly seen with COVID19 infection, acute kidney injury with con comitant chronic kidney disease, metabolic acidosis, metabolic encephalopathy. No further history is obtainable. Patient admitted to medical floor. Patient initiated on pneumonia protocol, as well as COVID-19 protocol. Nephrology service consult placed in ED. no prior admission for review. All medication listed at time of admission has been reconciled. Advanced care planning conducted in ED. Past History Past Medical History: diabetes, hypertension, renal failure, other (See HPI) Past Surgical History: Other (Left BKA) Social history: . denies: smoking, alcohol abuse, prescription drug ab use, IV drug use Family history: diabetes, hypertension Medications and Allergies Allergies Allergy/AdvReac Type Severity Reaction Status Date / Time No Known Allergies Allergy Verified 01/05/15 14:31 Home Medications Medication Instructions Recorded Confirmed Last Taken Type hydrALAZINE [Apresoline TAB] 25 mg PO Q8HR #90 tablet 08/25/14 12/09/18 12/08/18 21:00 Rx Acetaminophen/Codeine [Tylenol #3] 1 tab PO Q6H PRN #30 tab 04/27/16 12/09/18 05/28/16 Rx Pregabalin [Lyrica] 200 mg PO TID 05/29/16 12/09/18 12/08/18 21:00 History Sulfamethoxazole/Trimethoprim 1 each PO BID #14 tablet 12/11/18 Unknown Rx [Bactrim DS TAB] Review of Systems ROS unobtainable: due to mental status Exam - Constitutional Vitals: Temp Pulse Resp BP Pulse Ox 98.8 F 82 15 97/55 94 10/28/19 09:00 10/28/19 09:00 10/28/19 09:00 10/28/19 09:00 10/28/19 09:00 General appearance: Present: mild distress - EENT Eyes: Present: PERRL ENT: hearing intact, clear oral mucosa - Neck Neck: Present: supple, normal ROM - Respiratory Respiratory effort: normal Respiratory: bilateral: diminished, rhonchi - Cardiovascular Heart Sounds: Present: S1 & S2. Absent: rub, click - Extremities Extremities: pulses symmetrical, No edema Peripheral Pulses: within normal limits - Abdominal General gastrointestinal: Present: soft, non-tender, non-distended, normal bowel sounds Male genitourinary: Present: normal - Integumentary Integumentary: Present: clear, warm, dry - Musculoskeletal Musculoskeletal: generalized weakness - Psychiatric Psychiatric: no appropriate mood/affect, no intact judgment & insight, no memory intact - Neurologic Neurologic: CNII-XII intact, moves all extremities Results - Labs CBC & Chem 7: 10/28/19 13:31 10/28/19 08:15 Labs: Abnormal lab results 10/28/19 10/28/19 10/28/19 Range/Units 08:15 08:15 11:22 RBC 5.10 H (3.65-5.03) M/mm3 MCV 79 L (84-94) fl MCH 26 L (28-32) pg RDW 20.1 H (13.2-15.2) % Lymph % (Auto) 11.9 L (13.4-35.0) % [place] % (Auto) 8.5 H (0.0-7.3) % Lymph # 0.8 L (1.2-5.4) K/mm3 Seg Neutrophils % 79.1 H (40.0-70.0) % Potassium 5.9 H (3.6-5.0) mmol/L Chloride 107.4 H (98-107) mmol/L Carbon Dioxide 15 L (22-30) mmol/L BUN 117 H (9-20) mg/dL Creatinine 6.1 H (0.8-1.5) mg/dL Glucose 40 L (75-100) mg/dL AST 233 H (5-40) units/L ALT 60 H (7-56) units/L Albumin 2.9 L (3.9-5) g/dL Lipase 89 H (13-60) units/L Assessment and Plan - Patient Problems (1) Bilateral pneumonia Current Visit: Yes Status: Acute Qualifiers: Lung location: lower lobe of lung Plan to address problem: Pneumonia protocol: Chest x-ray, CBC, CMP, supplemental oxygen, nebulizer therapy, IV antibiotic therapy, blood culture (2) Suspected COVID-19 virus infection Current Visit: Yes Status: Acute Plan to address problem: D-dimer, LDH, procalcitonin, ferritin level, testing documentation sent to health department in the emergency department. (3) RAFAEL (acute kidney injury) Current Visit: Yes Status: Acute Plan to address problem: BMP, renal ultrasound, nephrology consult placed in the emergency department, strict I/O, monitor urine output every shift, IV fluid resuscitation therapy as clinically indicated. (4) Acidosis Current Visit: Yes Status: Acute Plan to address problem: IV fluid resuscitation therapy, supportive care, repeat BMP in a.m. (5) Hyperkalemia Current Visit: Yes Status: Acute Plan to address problem: Calcium gluconate, Kayexalate, no EKG changes. (6) Metabolic encephalopathy Current Visit: Yes Status: Acute Plan to address problem: Suspected secondary to uremia. IV fluid resuscitation therapy as clinically indicated, BMP, repeat BMP in a.m., (7) DVT prophylaxis Current Visit: Yes Status: Acute Plan to address problem: SCD to bilateral lower extremities while in bed, prophylactic heparin. (8) Advanced care planning/counseling discussion Current Visit: Yes Status: Acute Plan to address problem: Patient is full code, disease education conducted, +30 minutes.
[2019-10-28 13:12] LABS: Bilirubin,Direct < 0.2 mg/dL (0-0.2)
[2019-10-28] MEDS ORDERED: ALBUTEROL 2.5 MG/3 ML NEBU IH PRN (13:12)
[2019-10-28] MEDS ORDERED: ONDANSETRON 4 MG/2 ML INJ IV PRN (13:12)
[2019-10-28] MEDS ORDERED: PREGABALIN 200 MG PO SCH (14:00)
[2019-10-28 14:04] LABS: Basophils % (Auto) 0.6 % (0.0-1.8); Eosinophils % (Auto) 0.2 % (0.0-4.3); Hematocrit 38.8 % (35.5-45.6); Hemoglobin 12.6 gm/dl (11.8-15.2); Lymphocytes # (Auto) 0.9 K/mm3 (1.2-5.4); Lymphocytes % (Auto) 18.1 % (13.4-35.0); Mean Corpuscular HGB Conc 32 % (32-34); Mean Corpuscular Volume 80 fl (84-94); Monocytes # (Auto) 0.5 K/mm3 (0.0-0.8); Monocytes % (Auto) 9.6 % (0.0-7.3); Platelet Count 129 K/mm3 (140-440); Red Blood Count 4.86 M/mm3 (3.65-5.03)
[2019-10-28] MEDS ORDERED: PREGABALIN 75 MG CAP ONE (14:06)
[2019-10-28] MEDS ORDERED: PREGABALIN 25 MG CAP ONE (14:06)
[2019-10-28] MEDS ORDERED: SODIUM CHLORIDE 0.9% 1000 ML 0 ML ONE (14:07)
[2019-10-28 14:22] LABS: Red Cell Distribution Width 20.2 % (13.2-15.2)
[2019-10-28] MEDS ORDERED: ACETAMINOPHEN W/CODEINE 300-30 MG TAB ONE (14:40)
[2019-10-28] MEDS: ACETAMINOPHEN W/CODEINE 300-30 MG TAB PO PRN (14:41)
[2019-10-28] MEDS: PREGABALIN 75 MG CAP PO SCH ×2 (15:04→21:45)
[2019-10-28] MEDS: PREGABALIN 25 MG CAP PO SCH ×2 (15:05→21:45)
[2019-10-28 15:23] LABS: Bacteria,Urine 4+ /HPF (Negative); Bilirubin,Urine NEG (Negative); Blood,Urine MOD (Negative); Color,Urine Yellow (Yellow); Mucus,Urine FEW /HPF; Urobilinogen,Urine < 2.0 mg/dL (<2.0)
[2019-10-28 15:24] LABS: Creatinine,Urine 86.8 mg/dL (0.1-20.0)
[2019-10-28 15:25] LABS: WBC,Urine > 182.0 /HPF (0.0-6.0)
[2019-10-28] MEDS ORDERED: SODIUM POLYSTYRENE 15 GM/60 ML ORAL LIQD PO ONE (16:00)
[2019-10-28] MEDS ORDERED: CALCIUM GLUCONATE 1,000 MG in SODIUM CHLORIDE 0.9% 100 ML IV ONE (16:00)
[2019-10-28 16:58] LABS: Albumin 3.1 g/dL (3.9-5); Calcium 8.5 mg/dL (8.4-10.2)
[2019-10-28] MEDS: SODIUM POLYSTYRENE 15 GM/60 ML ORAL LIQD PO ONE ×2 (21:44→22:16)
[2019-10-28] MEDS ORDERED: HYDROcodone/ACETAMINOPHEN 10-325MG TAB PO ONE (22:34)
[2019-10-29 00:26] LABS: C-Reactive Protein 27.9 mg/dL (0.00-1.30)
[2019-10-29 01:29] LABS: Bacteria,Urine 4+ /HPF (Negative); Bilirubin,Urine NEG (Negative); Blood,Urine LG (Negative); Color,Urine Yellow (Yellow); Urobilinogen,Urine < 2.0 mg/dL (<2.0)
[2019-10-29 01:33] LABS: WBC,Urine > 182.0 /HPF (0.0-6.0)
[2019-10-29 07:49] LABS: Calcium 8.6 mg/dL (8.4-10.2)
[2019-10-29] MEDS: DEXTROSE 50% IN WATER (25GM) 50 ML SYRINGE IV PRN ×2 (08:04→12:35)
[2019-10-29] MEDS: PREGABALIN 25 MG CAP PO SCH ×2 (08:05→13:47)
[2019-10-29] MEDS: PREGABALIN 75 MG CAP PO SCH ×2 (08:05→13:48)
[2019-10-29] MEDS: ACETAMINOPHEN 325 MG TAB PO PRN ×3 (12:35→21:30)
--- NOTE | 2019-10-29 13:26 | Progress Note ---
Assessment and Plan (1) Bilateral pneumonia Current Visit: Yes Status: Acute Qualifiers: Lung location: lower lobe of lung Plan to address problem: Pneumonia protocol: Chest x-ray, CBC, CMP, supplemental oxygen, nebulizer therapy, IV antibiotic therapy, blood culture Covid test pending (2) Suspected COVID-19 virus infection Current Visit: Yes Status: Acute Plan to address problem: D-dimer, LDH, procalcitonin, ferritin level, testing documentation sent to health department in the emergency department. Cover test pending (3) RAFAEL (acute kidney injury) on CKD Current Visit: Yes Status: Acute Plan to address problem: BMP, renal ultrasound, nephrology consult placed in the emergency department, strict I/O, monitor urine output every shift, IV fluid resuscitation therapy as clinically indicated. IV fluids for now (4) Acidosis Current Visit: Yes Status: Acute Plan to address problem: IV fluid resuscitation therapy, supportive care, repeat BMP in a.m. Acidosis better on day 2 (5) Hyperkalemia Current Visit: Yes Status: Acute Plan to address problem: Calcium gluconate, Kayexalate, Potassium level improved (6) Metabolic encephalopathy Current Visit: Yes Status: Acute Plan to address problem: Suspected secondary to uremia. IV fluid resuscitation therapy as clinically indicated, BMP, repeat BMP in a.m., (7) DVT prophylaxis Current Visit: Yes Status: Acute Plan to address problem: SCD to bilateral lower extremities while in bed, prophylactic heparin. (8) Advanced care planning/counseling discussion Current Visit: Yes Status: Acute Plan to address problem: Patient is full code, disease education conducted, +30 minutes. 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 Patient is confused/lethargic and unable to provide detailed history at the time of my evaluation. Patient history taken from EMS, ED staff, and senior care facility staff. As per staff the patient had experienced worsening confusion, increased weakness, dry cough, and multiple loose stools over the past week with worsening of the aforementioned symptoms over the last 2 days. EMS notified and upon arrival the patient was found to be in distress and subsequently transported to [facility] for further evaluation and care. Patient seen and evaluated in the emergency department. Lab and imaging studies reviewed. Patient found to have bilateral diffuse infiltrates on his chest x-ray consistent with bilateral interstitial pneumonia commonly seen with COVID19 infection, acute kidney injury with concomitant chronic kidney disease, metabolic acidosis, metabolic encephalopathy. No further history is obtainable. Patient admitted to medical floor. Patient initiated on pneumonia protocol, as well as COVID-19 protocol. Nephrology service consult placed in ED. no prior admission for review. All medication listed at time of admission has been reconciled. Advanced care plan quita conducted in ED. Objective - Constitutional Vitals: Vital Signs - 12hr 10/29/19 10/29/19 10/29/19 04:45 05:42 10:00 Temperature 99.5 F Pulse Rate 80 Respiratory 20 Rate Blood Pressure 85/50 99/56 O2 Sat by Pulse 95 95 Oximetry 10/29/19 12:01 Temperature 103.0 F H Pulse Rate 92 H Respiratory 22 Rate Blood Pressure 94/54 O2 Sat by Pulse 93 Oximetry General appearance: Present: mild distress, well-nourished - EENT Eyes: PERRL, EOM intact ENT: hearing intact, clear oral mucosa Ears: bilateral: normal - Neck Neck: supple, normal ROM - Respiratory Respiratory effort: normal Respiratory: bilateral: CTA, rhonchi - Breasts Breasts: normal - Cardiovascular Heart rate: 88 Rhythm: regular Heart Sounds: Present: S1 & S2. Absent: gallop, rub Extremities: pulses intact, No edema, normal color, Full ROM - Gastrointestinal General gastrointestinal: Present: soft, non-tender, non-distended, normal bowel sounds - Genitourinary Male genitourinary: normal - Integumentary Integumentary: clear, warm, dry - Musculoskeletal Musculoskeletal: 1, strength equal bilaterally - Neurologic Neurologic: moves all extremities - Psychiatric Psychiatric: memory intact, appropriate mood/affect, intact judgment & insight - Labs CBC & Chem 7: 10/28/19 13:31 10/29/19 06:59 Labs: Abnormal lab results 10/28/19 10/28/19 10/28/19 Range/Units 10:44 13:31 13:31 MCV (84-94) fl MCH (28-32) pg RDW (13.2-15.2) % Plt Count (140-440) K/mm3 [place] % (Auto) (0.0-7.3) % Lymph # (1.2-5.4) K/mm3 Seg Neutrophils % (40.0-70.0) % D-Dimer 1579.04 H (0-234) ng/mlDDU Sodium (137-145) mmol/L Chloride (98-107) mmol/L Carbon Dioxide (22-30) mmol/L BUN (9-20) mg/dL Creatinine (0.8-1.5) mg/dL Glucose (75-100) mg/dL POC Glucose 48 L (70-105) Phosphorus (2.5-4.5) mg/dL Ferritin 1098.0 H (13.0-400.0) ng/mL AST (5-40) units/L ALT (7-56) units/L Lactate Dehydrogenase (91-180) units/L C-Reactive Protein (0.00-1.30) mg/dL Albumin (3.9-5) g/dL PTH Intact (15-65) pg/mL Urine WBC (Auto) (0.0-6.0) /HPF Urine Creatinine (0.1-20.0) mg/dL 10/28/19 10/28/19 10/28/19 Range/Units 13:31 13:31 13:31 MCV 80 L (84-94) fl MCH 26 L (28-32) pg RDW 20.2 H (13.2-15.2) % Plt Count 129 L (140-440) K/mm3 Snyder % (Auto) 9.6 H (0.0-7.3) % Lymph # 0.9 L (1.2-5.4) K/mm3 Seg Neutrophils % 71.5 H (40.0-70.0) % D-Dimer (0-234) ng/mlDDU Sodium (137-145) mmol/L Chloride 114.4 H (98-107) mmol/L Carbon Dioxide 15 L (22-30) mmol/L BUN 121 H (9-20) mg/dL Creatinine 6.3 H (0.8-1.5) mg/dL Glucose 114 H (75-100) mg/dL POC Glucose (70-105) Phosphorus (2.5-4.5) mg/dL Ferritin (13.0-400.0) ng/mL AST 222 H (5-40) units/L ALT 61 H (7-56) units/L Lactate Dehydrogenase 716 H (91-180) units/L C-Reactive Protein 27.90 H (0.00-1.30) mg/dL Albumin 3.1 L (3.9-5) g/dL PTH Intact (15-65) pg/mL Urine WBC (Auto) (0.0-6.0) /HPF Urine Creatinine (0.1-20.0) mg/dL 10/28/19 10/28/19 10/28/19 Range/Units 14:25 14:55 14:55 MCV (84-94) fl MCH (28-32) pg RDW (13.2-15.2) % Plt Count (140-440) K/mm3 Snyder % (Auto) (0.0-7.3) % Lymph # (1.2-5.4) K/mm3 Seg Neutrophils % (40.0-70.0) % D-Dimer (0-234) ng/mlDDU Sodium (137-145) mmol/L Chloride (98-107) mmol/L Carbon Dioxide (22-30) mmol/L BUN (9-20) mg/dL Creatinine (0.8-1.5) mg/dL Glucose (75-100) mg/dL POC Glucose 61 L (70-105) Phosphorus (2.5-4.5) mg/dL Ferritin (13.0-400.0) ng/mL AST (5-40) units/L ALT (7-56) units/L Lactate Dehydrogenase (91-180) units/L C-Reactive Protein (0.00-1.30) mg/dL Albumin (3.9-5) g/dL PTH Intact (15-65) pg/mL Urine WBC (Auto) > 182.0 H (0.0-6.0) /HPF Urine Creatinine 86.8 H (0.1-20.0) mg/dL 10/29/19 10/29/19 10/29/19 Range/Units 00:47 06:59 06:59 MCV (84-94) fl MCH (28-32) pg RDW (13.2-15.2) % Plt Count (140-440) K/mm3 [place] % (Auto) (0.0-7.3) % Lymph # (1.2-5.4) K/mm3 Seg Neutrophils % (40.0-70.0) % D-Dimer (0-234) ng/mlDDU Sodium 149 H (137-145) mmol/L Chloride 115.4 H (98-107) mmol/L Carbon Dioxide 15 L (22-30) mmol/L BUN 130 H (9-20) mg/dL Creatinine 5.9 H (0.8-1.5) mg/dL Glucose 48 L (75-100) mg/dL POC Glucose (70-105) Phosphorus 5.10 H (2.5-4.5) mg/dL Ferritin (13.0-400.0) ng/mL AST (5-40) units/L ALT (7-56) units/L Lactate Dehydrogenase (91-180) units/L C-Reactive Protein (0.00-1.30) mg/dL Albumin (3.9-5) g/dL PTH Intact 120.0 H (15-65) pg/mL Urine WBC (Auto) > 182.0 H (0.0-6.0) /HPF Urine Creatinine (0.1-20.0) mg/dL /11/13 Range/Units 07:59 MCV (84-94) fl MCH (28-32) pg RDW (13.2-15.2) % Plt Count (140-440) K/mm3 Snyder % (Auto) (0.0-7.3) % Lymph # (1.2-5.4) K/mm3 Seg Neutrophils % (40.0-70.0) % D-Dimer (0-234) ng/mlDDU Sodium (137-145) mmol/L Chloride (98-107) mmol/L Carbon Dioxide (22-30) mmol/L BUN (9-20) mg/dL Creatinine (0.8-1.5) mg/dL Glucose (75-100) mg/dL POC Glucose 45 L (70-105) Phosphorus (2.5-4.5) mg/dL Ferritin (13.0-400.0) ng/mL AST (5-40) units/L ALT (7-56) units/L Lactate Dehydrogenase (91-180) units/L C-Reactive Protein (0.00-1.30) mg/dL Albumin (3.9-5) g/dL PTH Intact (15-65) pg/mL Urine WBC (Auto) (0.0-6.0) /HPF Urine Creatinine (0.1-20.0) mg/dL CXR MPRESSION: Findings consistent with bilateral pneumonia of uncertain etiology. Typical and atypical bacterial and viral etiologies should both be considered. - Imaging and cardiology Chest x-ray: report reviewed
--- NOTE | 2019-10-29 14:27 | Consultation ---
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 EMS transported the pt to [facility] ED for further evaluation. Patient is lethargic and unable to provide any history at the time of my evaluation. In the ED patient was found to have bilateral diffuse infiltrates, Acute kidney injury, metabolic acidosis and metabolic encephalopathy. Patient admitted to medical floor. Patient was initiated on pneumonia and COVID-19 protocol. Nephrology was consulted for further evaluation. Past History Past Medical History: diabetes, hypertension, renal failure, other (See HPI) Past Surgical History: Other (Left BKA) Social history: . denies: smoking, alcohol abuse, prescription drug abuse, IV drug use Family history: diabetes, hypertension Medications and Allergies Allergies Allergy/AdvReac Type Severity Reaction Status Date / Time No Known Allergies Allergy Verified 01/05/15 14:31 Home Medications Medication Instructions Recorded Confirmed Last Taken Type hydrALAZINE [Apresoline TAB] 25 mg PO Q8HR #90 tablet 08/25/14 12/09/18 12/08/18 21:00 Rx Acetaminophen/Codeine [Tylenol #3] 1 tab PO Q6H PRN #30 tab 04/27/16 12/09/18 05/28/16 Rx Pregabalin [Lyrica] 200 mg PO TID 05/29/16 12/09/18 12/08/18 21:00 History Sulfamethoxazole/Trimethoprim 1 each PO BID #14 tablet 12/11/18 Unknown Rx [Bactrim DS TAB] Active Meds: Active Medications Acetaminophen (Tylenol) 650 mg PO Q4H PRN PRN Reason: Pain MILD(1-3)/Fever >100.5/EDUARDO Last Admin: 10/29/19 12:35 Dose: 650 mg Documented by: Acetaminophen/Codeine Phosphate (Tylenol #3) 1 tab PO Q6H PRN PRN Reason: PAIN Last Admin: 10/28/19 14:41 Dose: 1 tab Documented by: Albuterol (Proventil) 2.5 mg IH Q4HRT PRN PRN Reason: Shortness Of Breath Dextrose (D50w (25gm) Syringe) 50 ml IV Q30MIN PRN; Protocol PRN Reason: Hypoglycemia Last Admin: 10/29/19 12:35 Dose: 50 ml Documented by: Ondansetron HCl (Zofran) 4 mg IV Q8H PRN PRN Reason: Nausea And Vomiting Pregabalin (Pregabalin) 150 mg PO TID [facility] Last Admin: 10/29/19 13:48 Dose: 150 mg Documented by: Pregabalin (Pregabalin) 50 mg PO TID [facility] Last Admin: 10/29/19 13:47 Dose: 50 mg Documented by: Sodium Chloride (Sodium Chloride Flush Syringe 10 Ml) 10 ml IV BID [facility] Last Admin: 10/29/19 12:40 Dose: 10 ml Documented by: Sodium Chloride (Sodium Chloride Flush Syringe 10 Ml) 10 ml IV PRN PRN PRN Reason: LINE FLUSH Review of Systems ROS unobtainable: due to mental status Exam - Vital Signs Vital signs: Vital Signs Pulse Resp 82 16 10/28/19 08:16 10/28/19 08:16 - General Appearance General appearance: well-developed, appears stated age, other (not in distress) EENT: ATNC, PERRL Neck: Present: neck supple, trachea midline Respiratory: Clear to Ascultation (anetriorly / laterally) Heart: regular, S1S2, no murmurs Gastrointestinal: Present: normoactive bowel sounds. Absent: tenderness, distended Integumentary: ulcer (R foot sole) Neurologic: other (opens eyes, non-verbal, not following any command) Musculoskeletal: Present: other (no edema, R flat foot, L BKA) Results - Lab Results 10/28/19 13:31 10/29/19 06:59 Most recent lab results Calcium 8.6 mg/dL (8.4-10.2) 10/29/19 06:59 Phosphorus 5.10 mg/dL (2.5-4.5) H 10/29/19 06:59 Magnesium 2.10 mg/dL (1.7-2.3) 10/29/19 06:59 Urine Creatinine 86.8 mg/dL (0.1-20.0) H 10/28/19 14:55 Urine Sodium 42 mmol/L 10/28/19 14:55 - Image Kidney/bladder ultrasound: report reviewed Assessment and Plan 1. Acute kidney injury: Likely vasomotor RAFAEL superimposed on CKD stage 3 in the setting of volume depletion, hypotension, SIRS/sepsis and obstructive uropathy. CT abdomen showed bilateral hydronephrosis. Creatinine in November 2018 was 2.1 which is likely his baseline. Started on IVF. Monitor renal function. Renal prognosis is guarded. Avoid nephrotoxic agents. Meds dosage based on GFR. Monitor for FRAME CHANGER needs. 2. FEN: Hypernatremia, 1/2 NS, monitor. Hyperkalemia, improved, monitor. Metabolic acidosis, monitor. Monitor lytes and volume status. 3. Bilateral hydronephrosis: Secondary to bladder retention. S/p duncan catheter. 4. Bilateral pneumonia: Pneumonia protocol. Supplemental oxygen, nebulizer therapy, IV antibiotic therapy, blood culture. Covid test pending. 5. SIRS / Sepsis: Likely 2/2 PNA. 6. Suspected COVID-19 virus infection. 7. Metabolic encephalopathy: Toxic metabolic, POA. 8. R foot wound, POA.
[2019-10-29] MEDS: SODIUM CHLORIDE 0.45% 1000 ML 1,000 ML IV SCH (16:21)
[2019-10-30] MEDS: SODIUM CHLORIDE 0.45% 1000 ML 1,000 ML IV SCH ×2 (05:10→17:19)
[2019-10-30] MEDS: ACETAMINOPHEN W/CODEINE 300-30 MG TAB PO PRN (06:02)
[2019-10-30 09:00] LABS: Basophils % (Auto) 0.5 % (0.0-1.8); Eosinophils % (Auto) 0.1 % (0.0-4.3); Hematocrit 34.4 % (35.5-45.6); Hemoglobin 11.3 gm/dl (11.8-15.2); Lymphocytes # (Auto) 1.1 K/mm3 (1.2-5.4); Lymphocytes % (Auto) 17.4 % (13.4-35.0); Mean Corpuscular HGB Conc 33 % (32-34); Mean Corpuscular Volume 79 fl (84-94); Monocytes # (Auto) 0.5 K/mm3 (0.0-0.8); Monocytes % (Auto) 7.9 % (0.0-7.3); Platelet Count 125 K/mm3 (140-440); Red Blood Count 4.38 M/mm3 (3.65-5.03)
[2019-10-30 09:01] LABS: Red Cell Distribution Width 20.1 % (13.2-15.2)
[2019-10-30 09:02] LABS: Albumin 1.4 g/dL (3.9-5)
[2019-10-30 09:15] LABS: Calcium 5.8 mg/dL (8.4-10.2)
[2019-10-30] MEDS ORDERED: POTASSIUM CHLORIDE ER 20 MEQ TAB PO ONE (10:05)
[2019-10-30] MEDS ORDERED: POTASSIUM CHLORIDE 20 MEQ PACKET FEEDTUBE ONE (11:00)
--- NOTE | 2019-10-30 12:38 | Progress Note ---
Assessment and Plan (1) Bilateral pneumonia Current Visit: Yes Status: Acute Qualifiers: Lung location: lower lobe of lung Plan to address problem: Pneumonia protocol: Chest x-ray, CBC, CMP, supplemental oxygen, nebulizer therapy, IV antibiotic therapy, blood culture Covid test pending Patient initiated on Ceftriaxone and Zithromax (2) Suspected COVID-19 virus infection Current Visit: Yes Status: Acute Plan to address problem: D-dimer, LDH, procalcitonin, ferritin level, testing documentation sent to health department in the emergency department. Cover test pending (3) RAFAEL (acute kidney injury) on CKD Current Visit: Yes Status: Acute Plan to address problem: BMP, renal ultrasound, nephrology consult placed in the emergency department, strict I/O, monitor urine output every shift, IV fluid resuscitation therapy as clinically indicated. (4)Hyponatremia IV fluids for now (5) Acidosis Current Visit: Yes Status: Acute Plan to address problem: IV fluid resuscitation therapy, supportive care, repeat BMP in a.m. Acidosis better on day 2 (6) Hypokalemia Current Visit: Yes Status: Acute Plan to address problem: Potassium supplemented (7) Metabolic encephalopathy Current Visit: Yes Status: Acute Plan to address problem: Suspected secondary to uremia. IV fluid resuscitation therapy as clinically indicated, BMP, repeat BMP in a.m., (8) DVT prophylaxis Current Visit: Yes Status: Acute Plan to address problem: SCD to bilateral lower extremities while in bed, prophylactic heparin. (9) Advanced care planning/counseling discussion Current Visit: Yes Status: Acute Plan to address problem: Patient is full code, disease education conducted, +30 minutes. 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 Patient is confused/lethargic and unable to provide detailed history at the time of my evaluation. Patient histor y taken from EMS, ED staff, and residential facility staff. As per staff the patient had experienced worsening confusion, increased weakness, dry cough, and multiple loose stools over the past week with worsening of the aforementioned symptoms over the last 2 days. EMS notified and upon arrival the patient was found to be in distress and subsequently transported to [facility] for further evaluation and care. Patient seen and evaluated in the emergency department. Lab and imaging studies reviewed. Patient found to have bilateral diffuse infiltrates on his chest x-ray consistent with bilateral interstitial pneumonia commonly seen with COVID19 infection, acute kidney injury with concomitant chronic kidney disease, metabolic acidosis, metabolic encephalopathy. No further history is obtainable. Patient admitted to medical floor. Patient initiated on pneumonia protocol, as well as COVID-19 protocol. Nephrology service consult placed in ED. no prior admission for review. All medication listed at time of admission has been reconciled. Advanced care planning conducted in ED. Symptomatically improving Day 3 --[atoemt stil sob.Using accesory muscles of respiration Also in NC oxygen Objective - Constitutional Vitals: Vital Signs - 12hr 10/30/19 10/30/19 04:13 06:02 Temperature 97.4 F L Pulse Rate 81 Respiratory 18 20 Rate Blood Pressure 117/65 O2 Sat by Pulse 95 Oximetry General appearance: Present: mild distress, well-nourished - EENT Eyes: PERRL, EOM intact ENT: hearing intact, clear oral mucosa Ears: bilateral: normal - Neck Neck: supple, normal ROM - Respiratory Respiratory effort: normal Respiratory: bilateral: CTA, wheezing (Scattered) - Breasts Breasts: normal - Cardiovascular Heart rate: 88 Rhythm: regular Heart Sounds: Present: S1 & S2. Absent: gallop, rub Extremities: pulses intact, No edema, normal color, Full ROM - Gastrointestinal General gastrointestinal: Present: soft, non-tender, non-distended, normal bowel sounds - Genitourinary Male genitourinary: normal - Integumentary Integumentary: clear, warm, dry - Musculoskeletal Musculoskeletal: 1, strength equal bilaterally - Neurologic Neurologic: moves all extremities - Psychiatric Psychiatric: memory intact, appropriate mood/affect, intact judgment & insight - Labs CBC & Chem 7: 10/30/19 08:01 10/30/19 08:01 Labs: Abnormal lab results 10/29/19 10/29/19 10/29/19 Range/Units 12:18 16:00 21:26 Hgb (11.8-15.2) gm/dl Hct (35.5-45.6) % MCV (84-94) fl MCH (28-32) pg RDW (13.2-15.2) % Plt Count (140-440) K/mm3 [place] % (Auto) (0.0-7.3) % Lymph # (1.2-5.4) K/mm3 Seg Neutrophils % (40.0-70.0) % Sodium (137-145) mmol/L Potassium (3.6-5.0) mmol/L Carbon Dioxide (22-30) mmol/L BUN (9-20) mg/dL Creatinine (0.8-1.5) mg/dL Glucose (75-100) mg/dL POC Glucose 58 L 60 L 116 H (70-105) Calcium (8.4-10.2) mg/dL AST (5-40) units/L Total Protein (6.3-8.2) g/dL Albumin (3.9-5) g/dL 10/30/19 10/30/19 Range/Units 08:01 08:01 Hgb 11.3 L (11.8-15.2) gm/dl Hct 34.4 L (35.5-45.6) % MCV 79 L (84-94) fl MCH 26 L (28-32) pg RDW 20.1 H (13.2-15.2) % Plt Count 125 L (140-440) K/mm3 [place] % (Auto) 7.9 H (0.0-7.3) % Lymph # 1.1 L (1.2-5.4) K/mm3 Seg Neutrophils % 74.1 H (40.0-70.0) % Sodium 128 L D (137-145) mmol/L Potassium 3.0 L D (3.6-5.0) mmol/L Carbon Dioxide 10 L (22-30) mmol/L BUN 95 H (9-20) mg/dL Creatinine 3.3 H (0.8-1.5) mg/dL Glucose 48 L (75-100) mg/dL POC Glucose (70-105) Calcium 5.8 L* D (8.4-10.2) mg/dL AST 222 H (5-40) units/L Total Protein 4.9 L D (6.3-8.2) g/dL Albumin 1.4 L (3.9-5) g/dL
[2019-10-30] MEDS ORDERED: cefTRIAXone/NS 2 GM/100 ML 2 GM/100 ML BAG IV SCH (13:00)
[2019-10-30] MEDS ORDERED: AZITHROMYCIN 500 MG in SODIUM CHLORIDE 0.9% 250ML 250 ML IV SCH (13:00)
[2019-10-30] MEDS ORDERED: CALCIUM GLUCONATE 2,000 MG in SODIUM CHLORIDE 0.9% 100 ML IV ONE (13:00)
[2019-10-30] MEDS: POTASSIUM CHLORIDE ER 20 MEQ TAB PO SCH ×2 (13:24→22:06)
[2019-10-30] MEDS ORDERED: cefTRIAXone/NS 1 GM/50 ML 1 GM/50 ML BAG IV SCH (14:00)
--- NOTE | 2019-10-30 14:14 | Progress Note ---
Assessment and Plan 1. Acute kidney injury: Likely vasomotor RAFAEL superimposed on CKD stage 3 in the setting of volume depletion, hypotension, SIRS/sepsis and obstructive uropathy. CT abdomen showed bilateral hydronephrosis. Creatinine in November 2018 was 2.1 which is likely his baseline. Continue IVF. Creatinine slowly improving. Monitor renal function. Renal prognosis is guarded. Avoid nephrotoxic agents. Meds dosage based on GFR. 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 2. FEN: Hypernatremia, 1/2 NS, monitor. Hyperkalemia, Insulin-D50 and Kayexalate ordered, monitor. Metabolic acidosis, monitor. Monitor lytes and volume status. 3. Bilateral hydronephrosis: Secondary to bladder retention. S/p duncan catheter. 4. Bilateral pneumonia: Pneumonia protocol. Supplemental oxygen, nebulizer therapy and IV antibiotic therapy. Follow blood culture. COVID test pending. 5. SIRS / Sepsis: Likely 2/2 PNA. 6. Suspected COVID-19 virus infection. 7. Metabolic encephalopathy: Toxic metabolic, POA. 8. R foot wound, POA. - Subjective: Patient was seen and examined at the bedside. No acute events reported. - General Appearance General appearance: well-developed, appears stated age, not in distress HEENT: ATNC, YRN Neck: neck supple, trachea midline Respiratory: Clear to Ascultation, poor effort Heart: regular, S1S2, no murmurs Gastrointestinal: soft, normoactive bowel sounds, not tender Integumentary: ulcer R foot sole Neurologic: somnolent, only able to tell his name, able to move all 4 extremities Ext: no edema, R flat foot, L BKA Subjective Date of service: 10/30/19 Principal diagnosis: ,+RAFAEL Objective - Vital Signs Vital signs: Vital Signs - 12hr 10/30/19 10/30/19 10/30/19 04:13 06:02 11:00 Temperature 97.4 F L Pulse Rate 81 Respiratory 18 20 Rate Blood Pressure 117/65 O2 Sat by Pulse 95 95 Oximetry - Lab 10/30/19 08:01 10/30/19 16:13 Most recent lab results Calcium 5.8 mg/dL (8.4-10.2) L* D 10/30/19 08:01 Phosphorus 5.10 mg/dL (2.5-4.5) H 10/29/19 06:59 Magnesium 2.10 mg/dL (1.7-2.3) 10/29/19 06:59 Urine Creatinine 86.8 mg/dL (0.1-20.0) H 10/28/19 14:55 Urine Sodium 42 mmol/L 10/28/19 14:55 Medications & Allergies - Medications Allergies/Adverse Reactions: Allergies No Known Allergies Allergy (Verified 01/05/15 14:31) Home Medications: Home Medications Medication Instructions Recorded Confirmed Last Taken Type hydrALAZINE [Apresoline TAB] 25 mg PO Q8HR #90 tablet 08/25/14 12/09/18 12/08/18 21:00 Rx Acetaminophen/Codeine [Tylenol #3] 1 tab PO Q6H PRN #30 tab 04/27/16 12/09/18 05/28/16 Rx Pregabalin [Lyrica] 200 mg PO TID 05/29/16 12/09/18 12/08/18 21:00 History Sulfamethoxazole/Trimethoprim 1 each PO BID #14 tablet 12/11/18 Unknown Rx [Bactrim DS TAB] Active Medications: Generic Name Dose Route Start Last Admin Trade Name Freq PRN Reason Stop Dose Admin Acetaminophen 650 mg 10/28/19 13:12 10/29/19 21:30 Tylenol PO 650 mg Q4H PRN Administration Pain MILD(1-3)/Fever >100.5/EDUARDO Acetaminophen/Codeine Phosphate 1 tab 10/28/19 13:14 10/30/19 06:02 Tylenol #3 PO 1 tab Q6H PRN Administration PAIN Albuterol 2.5 mg 10/28/19 13:12 Proventil IH Q4HRT PRN Shortness Of Breath Dextrose 50 ml 10/29/19 08:00 10/29/19 12:35 D50w (25gm) Syringe IV 50 ml Q30MIN PRN Administration Hypoglycemia Protocol Hydroxychloroquine Sulfate 400 mg 10/30/19 14:00 Plaquenil PO 10/30/19 22:01 BID FAYE Hydroxychloroquine Sulfate 200 mg 10/31/19 10:00 Plaquenil PO 11/03/19 22:01 BID FAYE Sodium Chloride 1,000 mls @ 75 mls/hr 10/29/19 16:00 10/30/19 05:10 Nacl 0.45% 1000 Ml IV 75 mls/hr DIRECT FAYE Administration Azithromycin 500 mg/ Sodium 250 mls @ 250 mls/hr 10/30/19 13:00 Chloride IV Q24H FAYE Protocol Ceftriaxone Sodium 1 gm in 50 mls @ 100 mls/hr 10/30/19 14:00 Rocephin/Ns 1 Gm/50 Ml IV Q24HR FAYE Protocol Ondansetron HCl 4 mg 10/28/19 13:12 Zofran IV Q8H PRN Nausea And Vomiting Potassium Chloride 40 meq 10/30/19 13:00 10/30/19 13:24 K-Dur PO 10/30/19 19:01 40 meq Q6H FAYE Administration Sodium Chloride 10 ml 10/28/19 22:00 10/30/19 10:53 Sodium Chloride Flush Syringe 10 Ml IV 10 ml BID FAYE Administration Sodium Chloride 10 ml 10/28/19 13:12 Sodium Chloride Flush Syringe 10 Ml IV PRN PRN LINE FLUSH
[2019-10-30] MEDS: HYDROXYCHLOROQUINE 200 MG TAB PO SCH ×2 (15:00→21:39)
[2019-10-30] MEDS: ACETAMINOPHEN 325 MG TAB PO PRN ×2 (16:55→21:39)
[2019-10-30 17:04] LABS: Calcium 8.6 mg/dL (8.4-10.2)
[2019-10-30] MEDS ORDERED: INSULIN REGULAR, HUMAN 100 UNITS/1 ML IV ONE ×2 (20:00→23:15)
[2019-10-30] MEDS ORDERED: DEXTROSE 50% IN WATER (25GM) 50 ML SYRINGE IV ONE (20:00)
[2019-10-31] MEDS: ACETAMINOPHEN W/CODEINE 300-30 MG TAB PO PRN ×3 (04:43→17:43)
[2019-10-31 06:00] LABS: Hematocrit 39.9 % (35.5-45.6); Hemoglobin 12.6 gm/dl (11.8-15.2); Mean Corpuscular HGB Conc 32 % (32-34); Mean Corpuscular Volume 81 fl (84-94); Platelet Count 126 K/mm3 (140-440); Red Blood Count 4.95 M/mm3 (3.65-5.03)
[2019-10-31 06:02] LABS: Red Cell Distribution Width 20.4 % (13.2-15.2)
[2019-10-31 06:19] LABS: Calcium 8.7 mg/dL (8.4-10.2)
[2019-10-31] MEDS ORDERED: DEXTROSE 50% IN WATER (25GM) 50 ML SYRINGE IV ONE (07:43)
[2019-10-31] MEDS ORDERED: INSULIN REGULAR, HUMAN 100 UNITS/1 ML IV ONE (07:43)
[2019-10-31] MEDS ORDERED: SODIUM POLYSTYRENE 15 GM/60 ML ORAL LIQD PO ONE (08:00)
[2019-10-31] MEDS ORDERED: CALCIUM GLUCONATE 1,000 MG in SODIUM CHLORIDE 0.9% 100 ML IV ONE (08:15)
[2019-10-31 08:25] LABS: Anisocytosis 1+; Basophils % (Manual) 0 % (0.0-1.8); Hypochromasia Few; Platelet Estimate Consistent w Auto; Total Cells Counted 100
[2019-10-31] MEDS ORDERED: CALCIUM GLUCONATE 2,000 MG in SODIUM CHLORIDE 0.9% 100 ML IV ONE (08:33)
[2019-10-31] MEDS: DEXTROSE 5% IN WATER 1,000 ML IV SCH ×2 (08:34→17:43)
--- NOTE | 2019-10-31 08:39 | Consultation ---
History of Present Illness - Reason for Consult Consult date: 10/31/19 bilateral pneumonia Requesting physician: PITER SANDERSON - History of Present Illness 51 years old male with history of chronic kidney disease, diabetes, previous diabetic foot infection status post left BKA, hypertension, resident of [facility], admitted on 10/28/2019 due to altered mental status with confusion and lethargy, generalized weakness, dry cough, diarrhea for a week. EMS found patient acute distress. On arrival, temperature was 98.8, went up to 103. Blood pressure 96/57. Initial WBC was 6.5 with lymphopenia. Creatinine 6.1. Procalcitonin was 91. CRP 27. ALT 160. AST 233. LDH 716. Ferritin 1098. D-dimer 1579. Chest x-ray showed bibasilar pneumonia. CT of the chest show patchy groundglass opacities bilaterally. CT of the abdomen show severe hydroureteronephrosis with distended bladder. Urinalysis showed more than 180 white blood cells with large leukocyte esterase. Blood cultures 10/28/2019 no growth today. Noted platelets dropping at 126. Review of Systems: unable to obtain due to AMS Past History Past Medical History: diabetes, hypertension, renal failure, other (See HPI) Past Surgical History: Other (Left BKA) Social history: . denies: smoking, alcohol abuse, prescription drug abuse, IV drug use Family history: diabetes, hypertension Medications and Allergies Allergies Allergy/AdvReac Type Severity Reaction Status Date / Time No Known Allergies Allergy Verified 01/05/15 14:31 Home Medications Medication Instructions Recorded Confirmed Last Taken Type hydrALAZINE [Apresoline TAB] 25 mg PO Q8HR #90 tablet 08/25/14 12/09/18 12/08/18 21:00 Rx Acetaminophen/Codeine [Tylenol #3] 1 tab PO Q6H PRN #30 tab 04/27/16 12/09/18 05/28/16 Rx Pregabalin [Lyrica] 200 mg PO TID 05/29/16 12/09/18 12/08/18 21:00 History Sulfamethoxazole/Trimethoprim 1 each PO BID #14 tablet 12/11/18 Unknown Rx [Bactrim DS TAB] Active Meds: Active Medications Acetaminophen (Tylenol) 650 mg PO Q4H PRN PRN Reason: Pain MILD(1-3)/Fever >100.5/EDUARDO Last Admin: 10/30/19 21:39 Dose: 650 mg Documented by: Acetaminophen/Codeine Phosphate (Tylenol #3) 1 tab PO Q6H PRN PRN Reason: PAIN Last Admin: 10/31/19 04:43 Dose: 1 tab Documented by: Albuterol (Proventil) 2.5 mg IH Q4HRT PRN PRN Reason: Shortness Of Breath Dextrose (D50w (25gm) Syringe) 50 ml IV Q30MIN PRN; Protocol PRN Reason: Hypoglycemia Last Admin: 10/29/19 12:35 Dose: 50 ml Documented by: Hydroxychloroquine Sulfate (Plaquenil) 200 mg PO BID FAYE Stop: 11/03/19 22:01 Azithromycin 500 mg/ Sodium (Chloride) 250 mls @ 250 mls/hr IV Q24H FAYE; Protocol Last Admin: 10/30/19 15:00 Dose: 250 mls/hr Documented by: Ceftriaxone Sodium (Rocephin/Ns 1 Gm/50 Ml) 1 gm in 50 mls @ 100 mls/hr IV Q24HR FAYE; Protocol Last Admin: 10/30/19 16:54 Dose: 100 mls/hr Documented by: Dextrose (D5w) 1,000 mls @ 75 mls/hr IV DIRECT FAYE Last Admin: 10/31/19 08:34 Dose: 75 mls/hr Documented by: Calcium Gluconate 1,000 mg/ (Sodium Chloride) 110 mls @ 220 mls/hr IV ONCE ONE Stop: 10/31/19 08:44 Last Admin: 10/31/19 08:32 Dose: 220 mls/hr Documented by: Calcium Gluconate 2,000 mg/ (Sodium Chloride) 120 mls @ 660 mls/hr IV ONCE ONE Stop: 10/31/19 08:43 Ondansetron HCl (Zofran) 4 mg IV Q8H PRN PRN Reason: Nausea And Vomiting Sodium Chloride (Sodium Chloride Flush Syringe 10 Ml) 10 ml IV BID FAYE Last Admin: 10/30/19 21:40 Dose: 10 ml Documented by: Sodium Chloride (Sodium Chloride Flush Syringe 10 Ml) 10 ml IV PRN PRN PRN Reason: LINE FLUSH Physical Examination - Physical Exam Narrative exam: Exam performed in conjunction with nursing staff due to lack of PPE General appearance: alert confused Eyes: limited due to lack of PPE HENT: Atraumatic; oropharynx limited due to lack of PPE Lungs: diminished BS bilateral CV: RRR Abdomen: limited due to lack of PPE Extremities: limited due to lack of PPE Skin: No rash. Psych:no agitated Neuro: alert confused - Constitutional Vitals: Vital Signs Temp Pulse Resp BP Pulse Ox 98.4 F 84 18 104/70 97 10/31/19 04:26 10/31/19 04:26 10/31/19 04:26 10/31/19 04:26 10/31/19 04:26 Temperature -Last 24 Hours Temperature 98.4 F Temperature 98.1 F Temperature 101.8 F Temperature 102.9 F Temperature 98.1 F Results - Labs CBC & Chem 7: 10/31/19 05:32 10/31/19 05:32 Labs: Abnormal lab results 10/30/19 10/30/19 10/30/19 Range/Units 08:01 08:01 11:28 Hgb 11.3 L (11.8-15.2) gm/dl Hct 34.4 L (35.5-45.6) % MCV 79 L (84-94) fl MCH 26 L (28-32) pg RDW 20.1 H (13.2-15.2) % Plt Count 125 L (140-440) K/mm3 [place] % (Auto) 7.9 H (0.0-7.3) % Lymph # 1.1 L (1.2-5.4) K/mm3 Seg Neutrophils % 74.1 H (40.0-70.0) % Seg Neuts % (Manual) (40.0-70.0) % Lymphocytes % (Manual) (13.4-35.0) % Nucleated RBC % (0.0-0.9) % Lymphocytes # (Manual) (1.2-5.4) K/mm3 Sodium 128 L D (137-145) mmol/L Potassium 3.0 L D (3.6-5.0) mmol/L Chloride (98-107) mmol/L Carbon Dioxide 10 L (22-30) mmol/L BUN 95 H (9-20) mg/dL Creatinine 3.3 H (0.8-1.5) mg/dL Glucose 48 L (75-100) mg/dL POC Glucose 130 H (70-105) Calcium 5.8 L* D (8.4-10.2) mg/dL AST 222 H (5-40) units/L ALT (7-56) units/L Total Protein 4.9 L D (6.3-8.2) g/dL Albumin 1.4 L (3.9-5) g/dL 10/30/19 10/30/19 10/30/19 Range/Units 16:13 16:21 21:30 Hgb (11.8-15.2) gm/dl Hct (35.5-45.6) % MCV (84-94) fl MCH (28-32) pg RDW (13.2-15.2) % Plt Count (140-440) K/mm3 [place] % (Auto) (0.0-7.3) % Lymph # (1.2-5.4) K/mm3 Seg Neutrophils % (40.0-70.0) % Seg Neuts % (Manual) (40.0-70.0) % Lymphocytes % (Manual) (13.4-35.0) % Nucleated RBC % (0.0-0.9) % Lymphocytes # (Manual) (1.2-5.4) K/mm3 Sodium 147 H D (137-145) mmol/L Potassium 5.5 H D (3.6-5.0) mmol/L Chloride 121.0 H (98-107) mmol/L Carbon Dioxide 16 L (22-30) mmol/L BUN 119 H (9-20) mg/dL Creatinine 4.2 H (0.8-1.5) mg/dL Glucose 151 H (75-100) mg/dL POC Glucose 148 H 120 H (70-105) Calcium (8.4-10.2) mg/dL AST (5-40) units/L ALT (7-56) units/L Total Protein (6.3-8.2) g/dL Albumin (3.9-5) g/dL 10/31/19 10/31/19 10/31/19 Range/Units 00:23 05:32 05:32 Hgb (11.8-15.2) gm/dl Hct (35.5-45.6) % MCV 81 L (84-94) fl MCH 26 L (28-32) pg RDW 20.4 H (13.2-15.2) % Plt Count 126 L (140-440) K/mm3 [place] % (Auto) (0.0-7.3) % Lymph # (1.2-5.4) K/mm3 Seg Neutrophils % (40.0-70.0) % Seg Neuts % (Manual) 80.0 H (40.0-70.0) % Lymphocytes % (Manual) 13.0 L (13.4-35.0) % Nucleated RBC % 2.0 H (0.0-0.9) % Lymphocytes # (Manual) 0.8 L (1.2-5.4) K/mm3 Sodium 149 H (137-145) mmol/L Potassium 5.8 H (3.6-5.0) mmol/L Chloride 122.7 H (98-107) mmol/L Carbon Dioxide 13 L (22-30) mmol/L BUN 109 H (9-20) mg/dL Creatinine 3.1 H (0.8-1.5) mg/dL Glucose (75-100) mg/dL POC Glucose 141 H (70-105) Calcium (8.4-10.2) mg/dL AST 267 H (5-40) units/L ALT 77 H (7-56) units/L Total Protein (6.3-8.2) g/dL Albumin 2.0 L (3.9-5) g/dL 10/31/19 Range/Units 07:42 Hgb (11.8-15.2) gm/dl Hct (35.5-45.6) % MCV (84-94) fl MCH (28-32) pg RDW (13.2-15.2) % Plt Count (140-440) K/mm3 [place] % (Auto) (0.0-7.3) % Lymph # (1.2-5.4) K/mm3 Seg Neutrophils % (40.0-70.0) % Seg Neuts % (Manual) (40.0-70.0) % Lymphocytes % (Manual) (13.4-35.0) % Nucleated RBC % (0.0-0.9) % Lymphocytes # (Manual) (1.2-5.4) K/mm3 Sodium (137-145) mmol/L Potassium (3.6-5.0) mmol/L Chloride (98-107) mmol/L Carbon Dioxide (22-30) mmol/L BUN (9-20) mg/dL Creatinine (0.8-1.5) mg/dL Glucose (75-100) mg/dL POC Glucose 60 L (70-105) Calcium (8.4-10.2) mg/dL AST (5-40) units/L ALT (7-56) units/L Total Protein (6.3-8.2) g/dL Albumin (3.9-5) g/dL Assessment and Plan Cultures: Blood cultures 10/28/2019 no growth today. Assessment: 51 years old male with history of chronic kidney disease, diabetes, previous diabetic foot infection status post left BKA, hypertension, resident of [facility], admitted on 10/28/2019 due to altered mental status with confusion and lethargy, generalized weakness, dry cough, diarrhea for a week: #Severe sepsis with MODS: present on admission with fever, tachycardia, AMS, RAFAEL, hepatitis, likely due to bilateral pneumonia +/- UTI. Blood culture so far negative. Very high procalcitonin of unclear significance due to RFAAEL. #Bilateral pneumonia: high suspicion for severe COVID pneumonia. CT of the [address] show patchy groundglass opacities bilaterally. COVID test pending. Inflammatory markers highly elevated - LDH 716. Ferritin 1098. D-dimer 1579. CRP 27. High risk for ARDS. Other possibilities - HCAP. #Complicated UTI with severe bilateral hydro: s/p duncan, #RAFAEL on CKD: Urinalysis showed more than 180 white blood cells with large leukocyte esterase. CT of the abdomen show severe hydroureteronephrosis with distended bladder. #Acute encephalopathy #Eleveted LFTs: from sepsis/ COVID. ALT 160. AST 233. #Thrombocytopenia: from sepsis #Diarrhea: likely from COVID #Acute hypoxemia: now on NC O2 #Elevated LFTs: from COVID or sepsis #RAFAEL: renally adjust abx Recommendations: Obtain urine culture Stop ceftriaxone and azithromycin Start Cefepime renally adjusted Continue COVID isolation precautions per [facility] protocol Follow-up COVID testing Check serial Ferritin, LDH, D-Dimer, CRP every 48 hour Obtain IL-6 Continue hydroxychloroquine 400 mg PO BID for 1 day then 200 mg PO BID for 4 days (total 5 days) with zinc Daily EKG/telemetry QT monitoring - stop plaqenil if QT interval >500 Renal on board High risk mortality Will follow Jenni Friend MD Infectious Diseases Credit Reporting Clerk [facility] [place] [facility] M [phone] O [phone]
--- NOTE | 2019-10-31 09:07 | Progress Note ---
Assessment and Plan 1. Acute kidney injury: Likely vasomotor RAFAEL superimposed on CKD stage 3 in the setting of volume depletion, hypotension, SIRS/sepsis and obstructive uropathy. CT abdomen showed bilateral hydronephrosis. Creatinine in November 2018 was 2.1 which is likely his baseline. Continue IVF. Creatinine slowly improving, now 3.1. Monitor renal function. Renal prognosis is guarded. Avoid nephrotoxic agents. Meds dosage based on GFR. 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 2. FEN: Hypernatremia, 1/2 NS, monitor. Hyperkalemia, Hyperkalemia cocktail and Kayexalate ordered, monitor. Metabolic acidosis, monitor. Monitor lytes and volume status. 3. Bilateral hydronephrosis: Secondary to bladder retention. S/p duncan catheter. 4. Bilateral pneumonia: Pneumonia protocol. Supplemental oxygen, nebulizer therapy and IV antibiotic therapy. Follow blood culture. COVID test pending. 5. SIRS / Sepsis: Likely 2/2 PNA. 6. Suspected COVID-19 virus infection. On appropriate isolation precautions. 7. Metabolic encephalopathy: Toxic metabolic, POA. 8. R foot wound, POA. Subjective Date of service: 10/31/19 Principal diagnosis: ,+RAFAEL Interval history: Patient as not seen face to face due to lack of PPE for COVID. Discussed plan of care with primary nurse. Reviewed all labs, notes, and vital signs. Objective - Exam Narrative Exam: General appearance: not examined HEENT: not examined Neck: not examined Respiratory: not examined Heart: not examined Gastrointestinal: not examined Integumentary: not examined Neurologic: not examined : duncan catheter Ext: not examined - Vital Signs Vital signs: Vital Signs - 12hr 10/30/19 10/30/19 10/31/19 21:20 22:00 00:26 Temperature 101.8 F H 98.1 F Pulse Rate 89 Respiratory 20 Rate Blood Pressure 96/57 O2 Sat by Pulse 92 96 Oximetry 10/31/19 04:26 Temperature 98.4 F Pulse Rate 84 Respiratory 18 Rate Blood Pressure 104/70 O2 Sat by Pulse 97 Oximetry - Lab 10/31/19 05:32 10/31/19 05:32 Most recent lab results Calcium 8.7 mg/dL (8.4-10.2) 10/31/19 05:32 Phosphorus 5.10 mg/dL (2.5-4.5) H 10/29/19 06:59 Magnesium 2.10 mg/dL (1.7-2.3) 10/29/19 06:59 Urine Creatinine 86.8 mg/dL (0.1-20.0) H 10/28/19 14:55 Urine Sodium 42 mmol/L 10/28/19 14:55 Medications & Allergies - Medications Allergies/Adverse Reactions: Allergies No Known Allergies Allergy (Verified 01/05/15 14:31) Home Medications: Home Medications Medication Instructions Recorded Confirmed Last Taken Type hydrALAZINE [Apresoline TAB] 25 mg PO Q8HR #90 tablet 08/25/14 12/09/18 12/08/18 21:00 Rx Acetaminophen/Codeine [Tylenol #3] 1 tab PO Q6H PRN #30 tab 04/27/16 12/09/18 05/28/16 Rx Pregabalin [Lyrica] 200 mg PO TID 05/29/16 12/09/18 12/08/18 21:00 History Sulfamethoxazole/Trimethoprim 1 each PO BID #14 tablet 12/11/18 Unknown Rx [Bactrim DS TAB] Active Medications: Generic Name Dose Route Start Last Admin Trade Name Freq PRN Reason Stop Dose Admin Acetaminophen 650 mg 10/28/19 13:12 10/30/19 21:39 Tylenol PO 650 mg Q4H PRN Administration Pain MILD(1-3)/Fever >100.5/EDUARDO Acetaminophen/Codeine Phosphate 1 tab 10/28/19 13:14 10/31/19 04:43 Tylenol #3 PO 1 tab Q6H PRN Administration PAIN Albuterol 2.5 mg 10/28/19 13:12 Proventil IH Q4HRT PRN Shortness Of Breath Dextrose 50 ml 10/29/19 08:00 10/29/19 12:35 D50w (25gm) Syringe IV 50 ml Q30MIN PRN Administration Hypoglycemia Protocol Hydroxychloroquine Sulfate 200 mg 10/31/19 10:00 Plaquenil PO 11/03/19 22:01 BID FAYE Azithromycin 500 mg/ Sodium 250 mls @ 250 mls/hr 10/30/19 13:00 10/30/19 15:00 Chloride IV 250 mls/hr Q24H FAYE Administration Protocol Ceftriaxone Sodium 1 gm in 50 mls @ 100 mls/hr 10/30/19 14:00 10/30/19 16:54 Rocephin/Ns 1 Gm/50 Ml IV 100 mls/hr Q24HR FAYE Administration Protocol Dextrose 1,000 mls @ 75 mls/hr 10/31/19 08:00 10/31/19 08:34 D5w IV 75 mls/hr DIRECT FAYE Administration Calcium Gluconate 2,000 mg/ 120 mls @ 660 mls/hr 10/31/19 08:33 Sodium Chloride IV 10/31/19 08:43 ONCE ONE Ondansetron HCl 4 mg 10/28/19 13:12 Zofran IV Q8H PRN Nausea And Vomiting Sodium Chloride 10 ml 10/28/19 22:00 10/30/19 21:40 Sodium Chloride Flush Syringe 10 Ml IV 10 ml BID FAYE Administration Sodium Chloride 10 ml 10/28/19 13:12 Sodium Chloride Flush Syringe 10 Ml IV PRN PRN LINE FLUSH
[2019-10-31] MEDS: HYDROXYCHLOROQUINE 200 MG TAB PO SCH ×2 (09:45→21:43)
[2019-10-31] MEDS ORDERED: CEFEPIME/NS 1 GM/100 ML 1 GM/100 ML BAG IV SCH (10:00)
[2019-10-31] MEDS: CEFEPIME/NS 2 GM/100 ML 2 GM/100 ML BAG IV SCH ×2 (10:59→21:42)
[2019-10-31] MEDS: ZINC SULFATE 220 MG CAP PO SCH (11:00)
--- NOTE | 2019-10-31 16:25 | Progress Note ---
Assessment and Plan (1) Bilateral pneumonia Current Visit: Yes Status: Acute Qualifiers: Lung location: lower lobe of lung Plan to address problem: Pneumonia protocol: Chest x-ray, CBC, CMP, supplemental oxygen, nebulizer therapy, IV antibiotic therapy, blood culture Covid test pending Patient initiated on Ceftriaxone and Zithromax (2) Suspected COVID-19 virus infection Current Visit: Yes Status: Acute Plan to address problem: D-dimer, LDH, procalcitonin, ferritin level, testing documentation sent to health department in the emergency department. Covid test pending Covid test not in the system Informed Niesha in charge of infection control at [address] [place] [address] To follow-up with Jarvis Matt (3) RAFAEL (acute kidney injury) on CKD Current Visit: Yes Status: Acute Plan to address problem: BMP, renal ultrasound, nephrology consult placed in the emergency department, strict I/O, monitor urine output every shift, IV fluid resuscitation therapy as clinically indicated. IV fluids Nephrology consult appreciated (4)Hyponatremia IV fluids for now (5) Acidosis Current Visit: Yes Status: Acute Plan to address problem: IV fluid resuscitation therapy, supportive care, repeat BMP in a.m. Acidosis better on day 2 (6) Hypokalemia Current Visit: Yes Status: Acute Plan to address problem: Potassium supplemented (7) Metabolic encephalopathy Current Visit: Yes Status: Acute Plan to address problem: Suspected secondary to uremia. IV fluid resuscitation therapy as clinically indicated, BMP, repeat BMP in a.m., (8)sacral decubitus ulcer Patient has a chronic sacral stage IV ulcer with mild necrotic area and no purulence, also right plantar wound, both chronic not infected. Wound care on board. Off loading is mainstay therapy. (9) DVT prophylaxis Current Visit: Yes Status: Acute Plan to address problem: SCD to bilateral lower extremities while in bed, prophylactic heparin. (10) Advanced care planning/counseling discussion Current Visit: Yes Status: Acute Plan to address problem: Patient is full code, disease education conducted, +30 minutes. 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 Patient is confused/lethargic and unable to provide detailed history at the time of my evaluation. Patient history taken from EMS, ED staff, and jail facility staff. As per staff the patient had experienced worsening confusion, increased weakness, dry cough, and multiple loose stools over the past week with worsening of the aforementioned symptoms over the last 2 days. EMS notified and upon arrival the patient was found to be in distress and subsequently transported to [facility] for further evaluation and care. Patient seen and evaluated in the emergency department. Lab and imaging studies reviewed. Patient found to have bilateral diffuse infiltrates on his chest x-ray consistent with bilateral interstitial pneumonia commonly seen with COVID19 infection, acute kidney injury with concomitant chronic kidney disease, metabolic acidosis, metabolic encephalopathy. No further history is obtainable. Patient admitted to medical floor. Patient initiated on pneumonia protocol, as well as COVID-19 protocol. Nephrology service consult placed in ED. no prior admission for review. All medication listed at time of admission has been reconciled. Advanced care planning conducted in ED. Symptomatically improving Day 4 --patient stil sob.Using accesory muscles of respiration Also on NC oxygen Objective - Constitutional Vitals: Vital Signs - 12hr 10/31/19 10/31/19 10/31/19 04:26 08:10 10:00 Temperature 98.4 F Pulse Rate 84 Respiratory 18 18 Rate Blood Pressure 104/70 Blood Pressure [Left] O2 Sat by Pulse 97 94 Oximetry 10/31/19 10/31/19 12:10 16:08 Temperature 97.6 F 98.6 F Pulse Rate 86 67 Respiratory 22 24 Rate Blood Pressure 97/70 Blood Pressure 130/66 [Left] O2 Sat by Pulse 100 95 Oximetry General appearance: Present: no acute distress, well-nourished - EENT Eyes: PERRL, EOM intact ENT: hearing intact, clear oral mucosa Ears: bilateral: normal - Neck Neck: supple, normal ROM - Respiratory Respiratory effort: normal Respiratory: bilateral: CTA - Breasts Breasts: normal - Cardiovascular Rhythm: regular Heart Sounds: Present: S1 & S2. Absent: gallop, rub Extremities: pulses intact, No edema, normal color, Full ROM, abnormal (Sacral decubitus ulcers) Extremity abnormal: other (Sacral decubitus ulcers) - Gastrointestinal General gastrointestinal: Present: soft, non-tender, non-distended, normal bowel sounds - Genitourinary Male genitourinary: normal - Integumentary Integumentary: clear, warm, dry - Musculoskeletal Musculoskeletal: 1, strength equal bilaterally - Neurologic Neurologic: moves all extremities - Psychiatric Psychiatric: memory intact, appropriate mood/affect, intact judgment & insight - Labs CBC & Chem 7: 10/31/19 05:32 10/31/19 05:32 Labs: Abnormal lab results 10/30/19 10/30/19 10/30/19 Range/Units 16:13 16:21 21:30 MCV (84-94) fl MCH (28-32) pg RDW (13.2-15.2) % Plt Count (140-440) K/mm3 Seg Neuts % (Manual) (40.0-70.0) % Lymphocytes % (Manual) (13.4-35.0) % Nucleated RBC % (0.0-0.9) % Lymphocytes # (Manual) (1.2-5.4) K/mm3 Sodium 147 H D (137-145) mmol/L Potassium 5.5 H D (3.6-5.0) mmol/L Chloride 121.0 H (98-107) mmol/L Carbon Dioxide 16 L (22-30) mmol/L BUN 119 H (9-20) mg/dL Creatinine 4.2 H (0.8-1.5) mg/dL Glucose 151 H (75-100) mg/dL POC Glucose 148 H 120 H (70-105) AST (5-40) units/L ALT (7-56) units/L Albumin (3.9-5) g/dL 10/31/19 10/31/19 10/31/19 Range/Units 00:23 05:32 05:32 MCV 81 L (84-94) fl MCH 26 L (28-32) pg RDW 20.4 H (13.2-15.2) % Plt Count 126 L (140-440) K/mm3 Seg Neuts % (Manual) 80.0 H (40.0-70.0) % Lymphocytes % (Manual) 13.0 L (13.4-35.0) % Nucleated RBC % 2.0 H (0.0-0.9) % Lymphocytes # (Manual) 0.8 L (1.2-5.4) K/mm3 Sodium 149 H (137-145) mmol/L Potassium 5.8 H (3.6-5.0) mmol/L Chloride 122.7 H (98-107) mmol/L Carbon Dioxide 13 L (22-30) mmol/L BUN 109 H (9-20) mg/dL Creatinine 3.1 H (0.8-1.5) mg/dL Glucose (75-100) mg/dL POC Glucose 141 H (70-105) AST 267 H (5-40) units/L ALT 77 H (7-56) units/L Albumin 2.0 L (3.9-5) g/dL 10/31/19 10/31/19 Range/Units 07:42 12:26 MCV (84-94) fl MCH (28-32) pg RDW (13.2-15.2) % Plt Count (140-440) K/mm3 Seg Neuts % (Manual) (40.0-70.0) % Lymphocytes % (Manual) (13.4-35.0) % Nucleated RBC % (0.0-0.9) % Lymphocytes # (Manual) (1.2-5.4) K/mm3 Sodium (137-145) mmol/L Potassium (3.6-5.0) mmol/L Chloride (98-107) mmol/L Carbon Dioxide (22-30) mmol/L BUN (9-20) mg/dL Creatinine (0.8-1.5) mg/dL Glucose (75-100) mg/dL POC Glucose 60 L 167 H (70-105) AST (5-40) units/L ALT (7-56) units/L Albumin (3.9-5) g/dL
[2019-11-01] MEDS: ACETAMINOPHEN W/CODEINE 300-30 MG TAB PO PRN (02:04)
[2019-11-01 07:18] LABS: C-Reactive Protein 17.5 mg/dL (0.00-1.30); Calcium 8.9 mg/dL (8.4-10.2)
[2019-11-01] MEDS: HYDROXYCHLOROQUINE 200 MG TAB PO SCH ×2 (09:20→22:28)
[2019-11-01] MEDS: CEFEPIME/NS 2 GM/100 ML 2 GM/100 ML BAG IV SCH ×2 (09:20→22:28)
[2019-11-01] MEDS: ZINC SULFATE 220 MG CAP PO SCH (14:06)
[2019-11-01] MEDS: DEXTROSE 5% IN WATER 1,000 ML IV SCH (14:15)
--- NOTE | 2019-11-01 15:24 | Progress Note ---
Assessment and Plan Assessment and plan: -- Bilateral pneumonia Current Visit: Yes Status: Acute IV antibiotic therapy, blood culture Covid test pending Patient initiated on Ceftriaxone and Zithromax --Suspected COVID-19 virus infection Current Visit: Yes Status: Acute D-dimer, LDH, procalcitonin, ferritin level, Covid documentation sent to health department in the ER Covid test pending. ID following Informed Niesha in charge of infection control at [facility] --Elevated D-dimers; Patient had CT chest on 10/28/2019, bilateral pneumonia --RAFAEL (acute kidney injury) on CKD Current Visit: Yes Status: Acute Due to vasomotor nephropathy, gentle hydration, avoid nephrotoxins. Nephrology following, monitor renal function --Hyponatremia resolved Current Visit: Yes Status: Acute Sodium levels overcorrected/hypernatremia Change IV fluids to D5 W, monitor sodium levels --Acidosis Current Visit: Yes Status: Acute Aggressive IV fluid resuscitation therapy, supportive care, Closely monitor -- Hypokalemia Current Visit: Yes Status: Acute Potassium supplemented, follow potassium levels --Metabolic encephalopathy Current Visit: Yes Status: Acute Suspected secondary to uremia. IV fluid resuscitation therapy Supportive care --sacral decubitus ulcer/stage IV Current Visit: Yes Status: Acute Patient has a chronic sacral stage IV ulcer with mild necrotic area and no purulence, also right plantar wound, both chronic not infected. Wound care on board. Off loading is mainstay therapy. --DVT prophylaxis Current Visit: Yes Status: Acute SCD to bilateral lower extremities while in bed, prophylactic heparin. --Advanced care planning/counseling discussion/full code Current Visit: Yes Status: Acute Patient is full code, Plan of care reviewed with the patient, and his nurse Isolation precautions; contact and droplet observed History Interval history: Patient seen and examined in his room at bedside this morning Observing all the isolation precautions per [facility] C protocol, With PPE. Patient feels slightly better, complains of generalized weakness Alert and awake responding appropriately Mild distress, vital signs reviewed Hospitalist Physical - Constitutional Vitals: Temp Pulse Resp BP Pulse Ox 99.8 F H 89 28 H 115/69 93 11/01/19 11:50 11/01/19 11:50 11/01/19 11:50 11/01/19 11:50 11/01/19 11:50 General appearance: Present: mild distress, well-nourished - EENT Eyes: Present: PERRL, EOM intact - Neck Neck: Present: supple, normal ROM - Respiratory Respiratory effort: normal Respiratory: bilateral: diminished, rhonchi, negative: rales, wheezing - Cardiovascular Rhythm: regular Heart Sounds: Present: S1 & S2 - Extremities Extremities: no ischemia, No edema - Abdominal General gastrointestinal: soft, non-tender, non-distended, normal bowel sounds - Integumentary Integumentary: Present: clear, warm - Psychiatric Psychiatric: appropriate mood/affect, cooperative - Neurologic Neurologic: moves all extremities Results - Labs CBC & Chem 7: 10/31/19 05:32 11/01/19 06:20 Labs: Laboratory Last Values WBC 6.0 K/mm3 (4.5-11.0) 10/31/19 05:32 RBC 4.95 M/mm3 (3.65-5.03) 10/31/19 05:32 Hgb 12.6 gm/dl (11.8-15.2) 10/31/19 05:32 Hct 39.9 % (35.5-45.6) 10/31/19 05:32 MCV 81 fl (84-94) L 10/31/19 05:32 MCH 26 pg (28-32) L 10/31/19 05:32 MCHC 32 % (32-34) 10/31/19 05:32 RDW 20.4 % (13.2-15.2) H 10/31/19 05:32 Plt Count 126 K/mm3 (140-440) L 10/31/19 05:32 Lymph % (Auto) 17.4 % (13.4-35.0) 10/30/19 08:01 [place] % (Auto) 7.9 % (0.0-7.3) H 10/30/19 08:01 Eos % (Auto) 0.1 % (0.0-4.3) 10/30/19 08:01 Baso % (Auto) 0.5 % (0.0-1.8) 10/30/19 08:01 Lymph # 1.1 K/mm3 (1.2-5.4) L 10/30/19 08:01 [place] # 0.5 K/mm3 (0.0-0.8) 10/30/19 08:01 Eos # 0.0 K/mm3 (0.0-0.4) 10/30/19 08:01 Baso # 0.0 K/mm3 (0.0-0.1) 10/30/19 08:01 Add Manual Diff Complete 10/31/19 05:32 Total Counted 100 10/31/19 05:32 Seg Neutrophils % 74.1 % (40.0-70.0) H 10/30/19 08:01 Seg Neuts % (Manual) 80.0 % (40.0-70.0) H 10/31/19 05:32 Band Neutrophils % 0 % 10/31/19 05:32 Lymphocytes % (Manual) 13.0 % (13.4-35.0) L 10/31/19 05:32 Reactive Lymphs % (Man) 0 % 10/31/19 05:32 Monocytes % (Manual) 6.0 % (0.0-7.3) 10/31/19 05:32 Eosinophils % (Manual) 1.0 % (0.0-4.3) 10/31/19 05:32 Basophils % (Manual) 0 % (0.0-1.8) 10/31/19 05:32 Metamyelocytes % 0 % 10/31/19 05:32 Myelocytes % 0 % 10/31/19 05:32 Promyelocytes % 0 % 10/31/19 05:32 Blast Cells % 0 % 10/31/19 05:32 Nucleated RBC % 2.0 % (0.0-0.9) H 10/31/19 05:32 Seg Neutrophils # 4.9 K/mm3 (1.8-7.7) 10/30/19 08:01 Seg Neutrophils # Man 4.8 K/mm3 (1.8-7.7) 10/31/19 05:32 Band Neutrophils # 0.0 K/mm3 10/31/19 05:32 Lymphocytes # (Manual) 0.8 K/mm3 (1.2-5.4) L 10/31/19 05:32 Abs React Lymphs (Man) 0.0 K/mm3 10/31/19 05:32 Monocytes # (Manual) 0.4 K/mm3 (0.0-0.8) 10/31/19 05:32 Eosinophils # (Manual) 0.1 K/mm3 (0.0-0.4) 10/31/19 05:32 Basophils # (Manual) 0.0 K/mm3 (0.0-0.1) 10/31/19 05:32 Metamyelocytes # 0.0 K/mm3 10/31/19 05:32 Myelocytes # 0.0 K/mm3 10/31/19 05:32 Promyelocytes # 0.0 K/mm3 10/31/19 05:32 Blast Cells # 0.0 K/mm3 10/31/19 05:32 WBC Morphology Not Reportable 10/31/19 05:32 Hypersegmented Neuts Not Reportable 10/31/19 05:32 Hyposegmented Neuts Not Reportable 10/31/19 05:32 Hypogranular Neuts Not Reportable 10/31/19 05:32 Smudge Cells Not Reportable 10/31/19 05:32 Toxic Granulation Not Reportable 10/31/19 05:32 Toxic Vacuolation Not Reportable 10/31/19 05:32 Dohle Bodies Not Reportable 10/31/19 05:32 Pelger-Huet Anomaly Not Reportable 10/31/19 05:32 [place] Rods Not Reportable 10/31/19 05:32 Platelet Estimate Consistent w auto 10/31/19 05:32 Clumped Platelets Not Reportable 10/31/19 05:32 Plt Clumps, EDTA Not Reportable 10/31/19 05:32 Large Platelets Not Reportable 10/31/19 05:32 Giant Platelets Not Reportable 10/31/19 05:32 Platelet Satelliting Not Reportable 10/31/19 05:32 Plt Morphology Comment Not Reportable 10/31/19 05:32 RBC Morphology Not Reportable 10/31/19 05:32 Dimorphic RBCs Not Reportable 10/31/19 05:32 Polychromasia Not Reportable 10/31/19 05:32 Hypochromasia Few 10/31/19 05:32 Poikilocytosis Not Reportable 10/31/19 05:32 Anisocytosis 1+ 10/31/19 05:32 Microcytosis Not Reportable 10/31/19 05:32 Macrocytosis Not Reportable 10/31/19 05:32 Spherocytes Not Reportable 10/31/19 05:32 Pappenheimer Bodies Not Reportable 10/31/19 05:32 Sickle Cells Not Reportable 10/31/19 05:32 Target Cells Not Reportable 10/31/19 05:32 Tear Drop Cells Not Reportable 10/31/19 05:32 Ovalocytes Not Reportable 10/31/19 05:32 Helmet Cells Not Reportable 10/31/19 05:32 [place] Bodies Not Reportable 10/31/19 05:32 [place] Rings Not Reportable 10/31/19 05:32 Aric Cells Not Reportable 10/31/19 05:32 Bite Cells Not Reportable 10/31/19 05:32 Crenated Cell Not Reportable 10/31/19 05:32 Elliptocytes Not Reportable 10/31/19 05:32 Acanthocytes (Spur) Not Reportable 10/31/19 05:32 Rouleaux Not Reportable 10/31/19 05:32 Hemoglobin C Crystals Not Reportable 10/31/19 05:32 Schistocytes Not Reportable 10/31/19 05:32 Malaria parasites Not Reportable 10/31/19 05:32 Aristides Bodies Not Reportable 10/31/19 05:32 Hem Pathologist Commnt No 10/31/19 05:32 D-Dimer 1583.19 ng/mlDDU (0-234) H 11/01/19 06:20 Sodium 153 mmol/L (137-145) H 11/01/19 06:20 Potassium 4.1 mmol/L (3.6-5.0) D 11/01/19 06:20 Chloride 121.3 mmol/L (98-107) H 11/01/19 06:20 Carbon Dioxide 18 mmol/L (22-30) L 11/01/19 06:20 Anion Gap 18 mmol/L 11/01/19 06:20 BUN 85 mg/dL (9-20) H 11/01/19 06:20 Creatinine 2.5 mg/dL (0.8-1.5) H 11/01/19 06:20 Estimated GFR 32 ml/min 11/01/19 06:20 BUN/Creatinine Ratio 34 % 11/01/19 06:20 Glucose 114 mg/dL (75-100) H 11/01/19 06:20 POC Glucose 143 (70-105) H 11/01/19 12:00 Lactic Acid 1.00 mmol/L (0.7-2.0) 10/28/19 15:25 Calcium 8.9 mg/dL (8.4-10.2) 11/01/19 06:20 Phosphorus 5.10 mg/dL (2.5-4.5) H 10/29/19 06:59 Magnesium 2.10 mg/dL (1.7-2.3) 10/29/19 06:59 Ferritin 1333.0 ng/mL (13.0-400.0) H 11/01/19 06:20 Total Bilirubin 0.40 mg/dL (0.1-1.2) 10/31/19 05:32 Direct Bilirubin < 0.2 mg/dL (0-0.2) 10/28/19 11:22 Indirect Bilirubin 0.2 mg/dL 10/28/19 11:22 AST 267 units/L (5-40) H 10/31/19 05:32 ALT 77 units/L (7-56) H 10/31/19 05:32 Alkaline Phosphatase 82 units/L (35-129) 10/31/19 05:32 Lactate Dehydrogenase 609 units/L (91-180) H 11/01/19 06:20 C-Reactive Protein 17.50 mg/dL (0.00-1.30) H 11/01/19 06:20 Total Protein 7.3 g/dL (6.3-8.2) D 10/31/19 05:32 Albumin 2.0 g/dL (3.9-5) L 10/31/19 05:32 Albumin/Globulin Ratio 0.4 % 10/31/19 05:32 Lipase 89 units/L (13-60) H 10/28/19 11:22 Procalcitonin 91.05 ng/mL (<0.15) 10/28/19 13:31 PTH Intact 120.0 pg/mL (15-65) H 10/29/19 06:59 Urine Color Yellow (Yellow) 10/29/19 00:47 Urine Turbidity Cloudy (Clear) 10/29/19 00:47 Urine pH 6.0 (5.0-7.0) 10/29/19 00:47 Ur Specific [place] 1.010 (1.003-1.030) 10/29/19 00:47 Urine Protein 30 mg/dl mg/dL (Negative) 10/29/19 00:47 Urine Glucose (UA) Neg mg/dL (Negative) 10/29/19 00:47 Urine Ketones Neg mg/dL (Negative) 10/29/19 00:47 Urine Blood Lg (Negative) 10/29/19 00:47 Urine Nitrite Pos (Negative) 10/29/19 00:47 Urine Bilirubin Neg (Negative) 10/29/19 00:47 Urine Urobilinogen < 2.0 mg/dL (<2.0) 10/29/19 00:47 Ur Leukocyte Esterase Lg (Negative) 10/29/19 00:47 Urine WBC (Auto) > 182.0 /HPF (0.0-6.0) H 10/29/19 00:47 Urine RBC (Auto) 58.0 /HPF (0.0-6.0) 10/29/19 00:47 U Epithel Cells (Auto) < 1.0 /HPF (0-13.0) 10/29/19 00:47 Urine Bacteria (Auto) 4+ /HPF (Negative) 10/29/19 00:47 Urine WBC Clumps 2+ /HPF 10/28/19 14:55 Urine Mucus Few /HPF 10/28/19 14:55 Urine Yeast (Budding) 2+ /HPF 10/28/19 14:55 Urine Creatinine 86.8 mg/dL (0.1-20.0) H 10/28/19 14:55 Urine Sodium 42 mmol/L 10/28/19 14:55 Microbiology: Microbiology 10/28/19 Unknown Peripheral/Venous Blood Culture - Preliminary NO GROWTH AFTER 4 DAYS 10/28/19 Unknown Peripheral/Venous Blood Culture - Preliminary NO GROWTH AFTER 4 DAYS [place]/IV: Voiding Method Indwelling Catheter IV Catheter Type [Right Hand] Peripheral IV Active Medications - Current Medications Current Medications: Generic Name Dose Route Start Last Admin Trade Name Freq PRN Reason Stop Dose Admin Acetaminophen 650 mg 10/28/19 13:12 10/30/19 21:39 Tylenol PO 650 mg Q4H PRN Administration Pain MILD(1-3)/Fever >100.5/EDUARDO Acetaminophen/Codeine Phosphate 1 tab 10/28/19 13:14 11/01/19 02:04 Tylenol #3 PO 1 tab Q6H PRN Administration PAIN Albuterol 2.5 mg 10/28/19 13:12 Proventil IH Q4HRT PRN Shortness Of Breath Dextrose 50 ml 10/29/19 08:00 10/29/19 12:35 D50w (25gm) Syringe IV 50 ml Q30MIN PRN Administration Hypoglycemia Protocol Hydroxychloroquine Sulfate 200 mg 10/31/19 10:00 11/01/19 09:20 Plaquenil PO 11/03/19 22:01 200 mg BID FAYE Administration Dextrose 1,000 mls @ 75 mls/hr 10/31/19 08:00 11/01/19 14:15 D5w IV 75 mls/hr DIRECT FAYE Administration Cefepime HCl 2 gm in 100 mls @ 200 mls/hr 10/31/19 10:00 11/01/19 09:20 Cefepime/Ns 2 Gm/100 Ml IV 200 mls/hr Q12HR FAYE Administration Ondansetron HCl 4 mg 10/28/19 13:12 Zofran IV Q8H PRN Nausea And Vomiting Sodium Chloride 10 ml 10/28/19 22:00 11/01/19 09:21 Sodium Chloride Flush Syringe 10 Ml IV 10 ml BID FAYE Administration Sodium Chloride 10 ml 10/28/19 13:12 Sodium Chloride Flush Syringe 10 Ml IV PRN PRN LINE FLUSH Zinc Sulfate 220 mg 10/31/19 12:00 11/01/19 14:06 Zinc Sulfate PO 11/03/19 12:01 220 mg DAILY@1200 FAYE Administration Nutrition/Malnutrition Assess - Dietary Evaluation Nutrition/Malnutrition Findings: Nutrition Notes Start: 10/29/19 08:36 Freq: Status: Active Protocol: Document 11/01/19 12:53 LM (Rec: 11/01/19 12:57 LM [id number]) Nutrition Notes Initial or Follow up Reassessment Current Diagnosis Acute Kidney Injury,Decubitus( Pressure Ulcer),Diabetes, Hypertension Other Pertinent Diagnosis Sacreal and heel wound, pneu Current Diet Cardiac Labs/Tests Na 153 Pertinent Medications Reviewed Height 6 ft 2 in Weight 89 kg [place] Body Weight (kg) 86.36 BMI 25.2 Weight Status Overweight Subjective/Other Information Unable to speak to pt. 0% of breakfast was recorded in chart. Percent of energy/protein needs met: 0%/0% Burn Absent Trauma Absent Minimum of two criteria No Fluid Accumulation Moderate to Severe (severe) #1 Nutrition Diagnosis Increased nutrient needs ( specify in comment below) Diagnosis Progress(for reassessment Continues documentation) Is patient on ventilator? No Is Patient Ambulatory and/or Out of Bed No REE-([facility]-confined to bed) 2140.200 Calculation Used for Recommendations [facility] Additional Notes Protein needs are 113-136g (1. 2-1.5g/kg) Fluid needs are 1ml/kcal Nutrition Intervention Change Diet Order: Cardiac Add Supplement/Snack (indicate name/kcal Ensure High protein BID /protein ) Provides kCal: 320 Provides Protein (gm) 32 Goal #1 Meet at least 80% of kcal and protein needs Goal #2 Wound healing Anticipated Discharge Needs: Cardiac diet with ONS BID Follow-Up By: 11/03/19 Additional Comments F/U for PO/ONS intakes
--- NOTE | 2019-11-01 19:47 | Progress Note ---
Assessment and Plan Cultures: Blood cultures 10/28/2019 no growth today. Assessment: 51 years old male with history of chronic kidney disease, diabetes, previous diabetic foot infection status post left BKA, hypertension, resident of [facility], admitted on 10/28/2019 due to altered mental status with confusion and lethargy, generalized weakness, dry cough, diarrhea for a week: #Severe sepsis with MODS: present on admission with fever, tachycardia, AMS, RAFAEL, hepatitis, likely due to bilateral pneumonia +/- UTI. Blood culture so far negative. Very high procalcitonin of unclear significance due to RAFAEL. #Bilateral pneumonia: high suspicion for severe COVID pneumonia. CT of the chest show patchy groundglass opacities bilaterally. COVID test pending. Inflammatory markers highly elevated - LDH 716. Ferritin 1098. D-dimer 1579. CRP 27. High risk for ARDS. Other possibilities - HCAP. Influenza negative #Complicated UTI with severe bilateral hydro: s/p duncan, #RAFAEL on CKD: Urinalysis showed more than 180 white blood cells with large leukocyte esterase. CT of the abdomen show severe hydroureteronephrosis with distended bladder. #Acute encephalopathy: some better #Eleveted LFTs: from sepsis/ COVID. ALT 160. AST 233. #Thrombocytopenia: from sepsis, not better #Diarrhea: likely from COVID #Acute hypoxemia: now on NC O2 #Elevated LFTs: from COVID or sepsis #RAFAEL: renally adjust abx - better Recommendations: Obtain urine culture - pending Continue Cefepime renally adjusted Continue COVID isolation precautions per [facility] protocol Follow-up COVID testing Check serial Ferritin, LDH, D-Dimer, CRP every 48 hour Obtain IL-6 Continue hydroxychloroquine (total 5 days) with zinc Daily EKG/telemetry QT monitoring - stop plaquenil if QT interval >500 Renal on board High risk mortality Will follow Jenni Friend MD Infectious Diseases Geodetic Engineer [facility] M [phone] O [phone] Subjective Date of service: 11/01/19 Principal diagnosis: ,+RAFAEL/CKD, bilateral pneumonia Objective - Constitutional Vitals: Vital Signs Temp Pulse Resp BP Pulse Ox 99.9 F H 82 28 H 112/55 93 11/01/19 16:30 11/01/19 16:30 11/01/19 16:30 11/01/19 16:30 11/01/19 16:30 Temperature -Last 24 Hours Temperature 99.9 F Temperature 99.8 F Temperature 98.7 F Temperature 98.7 F - Labs CBC & Chem 7: 10/31/19 05:32 11/01/19 06:20 Labs: Abnormal lab results 10/31/19 11/01/19 11/01/19 Range/Units 22:48 06:20 06:20 D-Dimer 1583.19 H (0-234) ng/mlDDU Sodium (137-145) mmol/L Chloride (98-107) mmol/L Carbon Dioxide (22-30) mmol/L BUN (9-20) mg/dL Creatinine (0.8-1.5) mg/dL Glucose (75-100) mg/dL POC Glucose 240 H (70-105) Ferritin 1333.0 H (13.0-400.0) ng/mL Lactate Dehydrogenase (91-180) units/L C-Reactive Protein (0.00-1.30) mg/dL 11/01/19 11/01/19 11/01/19 Range/Units 06:20 08:16 12:00 D-Dimer (0-234) ng/mlDDU Sodium 153 H (137-145) mmol/L Chloride 121.3 H (98-107) mmol/L Carbon Dioxide 18 L (22-30) mmol/L BUN 85 H (9-20) mg/dL Creatinine 2.5 H (0.8-1.5) mg/dL Glucose 114 H (75-100) mg/dL POC Glucose 109 H 143 H (70-105) Ferritin (13.0-400.0) ng/mL Lactate Dehydrogenase 609 H (91-180) units/L C-Reactive Protein 17.50 H (0.00-1.30) mg/dL 11/01/19 Range/Units 17:11 D-Dimer (0-234) ng/mlDDU Sodium (137-145) mmol/L Chloride (98-107) mmol/L Carbon Dioxide (22-30) mmol/L BUN (9-20) mg/dL Creatinine (0.8-1.5) mg/dL Glucose (75-100) mg/dL POC Glucose 213 H (70-105) Ferritin (13.0-400.0) ng/mL Lactate Dehydrogenase (91-180) units/L C-Reactive Protein (0.00-1.30) mg/dL
--- NOTE | 2019-11-01 21:22 | Progress Note ---
Assessment and Plan 1. Acute kidney injury: Likely vasomotor RAFAEL superimposed on CKD stage 3 in the setting of volume depletion, hypotension, SIRS/sepsis and obstructive uropathy. CT abdomen showed bilateral hydronephrosis. Creatinine in November 2018 was 2.1 which is likely his baseline. Continue IV fluids. Creatinine slowly improving. Monitor renal function. Renal prognosis is guarded. Avoid nephrotoxic agents. Meds dosage based on GFR. 2. FEN: Hypernatremia, started on D5W, monitor. Hyperkalemia, improved, monitor. Metabolic acidosis, monitor. Monitor lytes and volume status. 3. Bilateral hydronephrosis: Secondary to bladder retention. S/p duncan catheter. 4. Bilateral pneumonia: Pneumonia protocol. Supplemental oxygen, nebulizer therapy and IV antibiotic therapy. Follow blood culture. COVID test pending. 5. SIRS / Sepsis: Likely 2/2 PNA. 6. Suspected COVID-19 virus infection. 7. Metabolic encephalopathy: Toxic metabolic, POA. 8. R foot wound, POA. - Subjective: Patient was seen and examined at the bedside. No acute events reported. - General Appearance General appearance: well-developed, appears stated age, not in distress HEENT: ATNC, YRN Neck: neck supple, trachea midline Respiratory: Clear to Ascultation, poor effort Heart: regular, S1S2, no murmurs Gastrointestinal: soft, normoactive bowel sounds, not tender Integumentary: ulcer R foot sole Neurologic: somnolent, only able to tell his name, able to move all 4 extremities Ext: no edema, R flat foot, L BKA : Duncan catheter Subjective Date of service: 11/01/19 Principal diagnosis: ,+RAFAEL/CKD, bilateral pneumonia Objective - Vital Signs Vital signs: Vital Signs - 12hr 11/01/19 11/01/19 11:50 16:30 Temperature 99.8 F H 99.9 F H Pulse Rate 89 82 Respiratory 28 H 28 H Rate Blood Pressure 115/69 112/55 O2 Sat by Pulse 93 93 Oximetry - Lab 10/31/19 05:32 11/01/19 06:20 Most recent lab results Calcium 8.9 mg/dL (8.4-10.2) 11/01/19 06:20 Phosphorus 5.10 mg/dL (2.5-4.5) H 10/29/19 06:59 Magnesium 2.10 mg/dL (1.7-2.3) 10/29/19 06:59 Urine Creatinine 86.8 mg/dL (0.1-20.0) H 10/28/19 14:55 Urine Sodium 42 mmol/L 10/28/19 14:55 Medications & Allergies - Medications Allergies/Adverse Reactions: Allergies No Known Allergies Allergy (Verified 01/05/15 14:31) Home Medications: Home Medications Medication Instructions Recorded Confirmed Last Taken Type hydrALAZINE [Apresoline TAB] 25 mg PO Q8HR #90 tablet 08/25/14 11/01/19 12/08/18 21:00 Rx Pregabalin [Lyrica] 200 mg PO TID 05/29/16 11/01/19 12/08/18 21:00 History Adult Probiotic 1 tab PO DAILY 11/01/19 11/01/19 Unknown History Aspirin BABY CHEW TAB 81 mg PO DAILY 11/01/19 11/01/19 Unknown History Baby Vitamin D3 2,000 units PO DAILY 11/01/19 11/01/19 Unknown History Brimonidine Tartrate 0.2% 1 drop OU QHS 11/01/19 11/01/19 Unknown History Colchicine 0.6 mg PO BID 11/01/19 11/01/19 Unknown History DUONEB *Not for PRN Use* 0.5 - 2.5 mg INHALATION Q6HR PRN 11/01/19 11/01/19 Un known History Hydrocodone-Acetamin 10-325/15 1 tab PO TID PRN 11/01/19 11/01/19 Unknown History Lipitor 10 mg PO QHS 11/01/19 11/01/19 Unknown History Loperamide 2 mg PO Q24HR PRN 11/01/19 11/01/19 Unknown History Metoprolol 25 mg PO DAILY 11/01/19 11/01/19 Unknown History Robitussin Cough-Chest Dm Liq 15 ml PO BID 11/01/19 11/01/19 Unknown History Sennosides [Senna] 8.6 mg PO Q24HR PRN 11/01/19 11/01/19 Unknown History Verapamil 180 mg PO BID 11/01/19 11/01/19 Unknown History traMADoL 50 mg PO Q6HR PRN 11/01/19 11/01/19 Unknown History Active Medications: Generic Name Dose Route Start Last Admin Trade Name Freq PRN Reason Stop Dose Admin Acetaminophen 650 mg 10/28/19 13:12 10/30/19 21:39 Tylenol PO 650 mg Q4H PRN Administration Pain MILD(1-3)/Fever >100.5/EDUARDO Acetaminophen/Codeine Phosphate 1 tab 10/28/19 13:14 11/01/19 02:04 Tylenol #3 PO 1 tab Q6H PRN Administration PAIN Albuterol 2.5 mg 10/28/19 13:12 Proventil IH Q4HRT PRN Shortness Of Breath Dextrose 50 ml 10/29/19 08:00 10/29/19 12:35 D50w (25gm) Syringe IV 50 ml Q30MIN PRN Administration Hypoglycemia Protocol Hydroxychloroquine Sulfate 200 mg 10/31/19 10:00 11/01/19 09:20 Plaquenil PO 11/03/19 22:01 200 mg BID FAYE Administration Dextrose 1,000 mls @ 75 mls/hr 10/31/19 08:00 11/01/19 14:15 D5w IV 75 mls/hr DIRECT FAYE Administration Cefepime HCl 2 gm in 100 mls @ 200 mls/hr 10/31/19 10:00 11/01/19 09:20 Cefepime/Ns 2 Gm/100 Ml IV 200 mls/hr Q12HR FAYE Administration Ondansetron HCl 4 mg 10/28/19 13:12 Zofran IV Q8H PRN Nausea And Vomiting Sodium Chloride 10 ml 10/28/19 22:00 11/01/19 09:21 Sodium Chloride Flush Syringe 10 Ml IV 10 ml BID FAYE Administration Sodium Chloride 10 ml 10/28/19 13:12 Sodium Chloride Flush Syringe 10 Ml IV PRN PRN LINE FLUSH Zinc Sulfate 220 mg 10/31/19 12:00 11/01/19 14:06 Zinc Sulfate PO 11/03/19 12:01 220 mg DAILY@1200 FAYE Administration
[2019-11-02 04:27] LABS: Calcium 8.3 mg/dL (8.4-10.2)
[2019-11-02] MEDS: DEXTROSE 5% IN WATER 1,000 ML IV SCH ×2 (05:30→21:35)
[2019-11-02] MEDS: CEFEPIME/NS 2 GM/100 ML 2 GM/100 ML BAG IV SCH ×3 (08:26→21:33)
[2019-11-02] MEDS: HYDROXYCHLOROQUINE 200 MG TAB PO SCH ×3 (08:27→21:33)
--- NOTE | 2019-11-02 09:11 | Progress Note ---
Assessment and Plan 1. Acute kidney injury: Likely vasomotor RAFAEL superimposed on CKD stage 3 in the setting of volume depletion, hypotension, SIRS/sepsis and obstructive uropathy. CT abdomen showed bilateral hydronephrosis. Creatinine in November 2018 was 2.1 which is likely his baseline. Continue IV fluids. Creatinine slowly improving, now 2.1. Monitor renal function. Renal prognosis is guarded. Avoid nephrotoxic agents. Meds dosage based on GFR. 2. FEN: Hypernatremia, on D5W, improving, ,monitor. Hyperkalemia, improved, monitor. Metabolic acidosis, monitor. Monitor lytes and volume status. 3. Bilateral hydronephrosis: Secondary to bladder retention. S/p duncan catheter. 4. Bilateral pneumonia: Pneumonia protocol. Supplemental oxygen, nebulizer therapy and IV antibiotic therapy. Follow blood culture. COVID test confirmed positive. 5. SIRS / Sepsis: Likely 2/2 PNA. 6. Suspected COVID-19 virus infection. Confirmed positive. 7. Metabolic encephalopathy: Toxic metabolic, POA. 8. R foot wound, POA. 9. RUE swelling: US pending. Subjective Date of service: 11/02/19 Principal diagnosis: ,+RAFAEL/CKD, bilateral pneumonia Interval history: Patient was seen and examined at the bedside by Dr. Rushing to reduce exposures and preserve PPE. Patient is confirmed positive COVID-19. COVID19: Positive Objective - Vital Signs Vital signs: Vital Signs - 12hr 11/01/19 11/01/19 11/02/19 21:22 22:00 04:08 Temperature 97.9 F 98.0 F Pulse Rate 85 85 Respiratory 16 18 Rate Blood Pressure 119/72 129/77 O2 Sat by Pulse 96 98 91 Oximetry - Lab 10/31/19 05:32 11/02/19 03:28 Most recent lab results Calcium 8.3 mg/dL (8.4-10.2) L 11/02/19 03:28 Phosphorus 5.10 mg/dL (2.5-4.5) H 10/29/19 06:59 Magnesium 2.10 mg/dL (1.7-2.3) 10/29/19 06:59 Urine Creatinine 86.8 mg/dL (0.1-20.0) H 10/28/19 14:55 Urine Sodium 42 mmol/L 10/28/19 14:55 Medications & Allergies - Medications Allergies/Adverse Reactions: Allergies No Known Allergies Allergy (Verified 01/05/15 14:31) Home Medications: Home Medications Medication Instructions Recorded Confirmed Last Taken Type hydrALAZINE [Apresoline TAB] 25 mg PO Q8HR #90 tablet 08/25/14 11/01/19 12/08/18 21:00 Rx Pregabalin [Lyrica] 200 mg PO TID 05/29/16 11/01/19 12/08/18 21:00 History Adult Probiotic 1 tab PO DAILY 11/01/19 11/01/19 Unknown History Aspirin BABY CHEW TAB 81 mg PO DAILY 11/01/19 11/01/19 Unknown History Baby Vitamin D3 2,000 units PO DAILY 11/01/19 11/01/19 Unknown History Brimonidine Tartrate 0.2% 1 drop OU QHS 11/01/19 11/01/19 Unknown History Colchicine 0.6 mg PO BID 11/01/19 11/01/19 Unknown History DUONEB *Not for PRN Use* 0.5 - 2.5 mg INHALATION Q6HR PRN 11/01/19 11/01/19 Unknown History Hydrocodone-Acetamin 10-325/15 1 tab PO TID PRN 11/01/19 11/01/19 Unknown History Lipitor 10 mg PO QHS 11/01/19 11/01/19 Unknown History Loperamide 2 mg PO Q24HR PRN 11/01/19 11/01/19 Unknown History Metoprolol 25 mg PO DAILY 11/01/19 11/01/19 Unknown History Robitussin Cough-Chest Dm Liq 15 ml PO BID 11/01/19 11/01/19 Unknown History Sennosides [Senna] 8.6 mg PO Q24HR PRN 11/01/19 11/01/19 Unknown History Verapamil 180 mg PO BID 11/01/19 11/01/19 Unknown History traMADoL 50 mg PO Q6HR PRN 11/01/19 11/01/19 Unknown History Active Medications: Generic Name Dose Route Start Last Admin Trade Name Freq PRN Reason Stop Dose Admin Acetaminophen 650 mg 10/28/19 13:12 10/30/19 21:39 Tylenol PO 650 mg Q4H PRN Administration Pain MILD(1-3)/Fever >100.5/EDUARDO Acetaminophen/Codeine Phosphate 1 tab 10/28/19 13:14 11/01/19 02:04 Tylenol #3 PO 1 tab Q6H PRN Administration PAIN Albuterol 2.5 mg 10/28/19 13:12 Proventil IH Q4HRT PRN Shortness Of Breath Dextrose 50 ml 10/29/19 08:00 10/29/19 12:35 D50w (25gm) Syringe IV 50 ml Q30MIN PRN Administration Hypoglycemia Protocol Hydroxychloroquine Sulfate 200 mg 10/31/19 10:00 11/02/19 08:27 Plaquenil PO 11/03/19 22:01 200 mg BID FAYE Administration Dextrose 1,000 mls @ 75 mls/hr 10/31/19 08:00 11/02/19 05:30 D5w IV 75 mls/hr DIRECT FAYE Administration Cefepime HCl 2 gm in 100 mls @ 200 mls/hr 10/31/19 10:00 11/02/19 08:26 Cefepime/Ns 2 Gm/100 Ml IV 200 mls/hr Q12HR FAYE Administration Ondansetron HCl 4 mg 10/28/19 13:12 Zofran IV Q8H PRN Nausea And Vomiting Sodium Chloride 10 ml 10/28/19 22:00 11/02/19 08:27 Sodium Chloride Flush Syringe 10 Ml IV 10 ml BID FAYE Administration Sodium Chloride 10 ml 10/28/19 13:12 Sodium Chloride Flush Syringe 10 Ml IV PRN PRN LINE FLUSH Zinc Sulfate 220 mg 10/31/19 12:00 11/01/19 14:06 Zinc Sulfate PO 11/03/19 12:01 220 mg DAILY@1200 FAYE Administration
--- NOTE | 2019-11-02 11:57 | Progress Note ---
Assessment and Plan Assessment and plan: --Right upper extremity swelling: Current Visit: Yes Status: Acute Elevate the limb, right upper extremity venous Doppler to rule out DVT Supportive care, will try not to use the limb for IV infusion --Severe sepsis due to COVID-19 positive bilateral pneumonia. Current Visit: Yes Status: Acute Very poor prognosis s/p empiric IV antibiotic therapy, Covid test positive. Oxygen titrate O2 sats to more than 90%. IV cefepime, hydro-chloroquine and zinc per ID D-dimer, LDH, procalcitonin, ferritin level, --Elevated D-dimers; Patient had CT chest on 10/28/2019, bilateral pneumonia --RAFAEL (acute kidney injury) on CKD Current Visit: Yes Status: Acute Due to vasomotor nephropathy, gentle hydration, avoid nephrotoxins. Nephrology following, monitor renal function --Hyponatremia resolved Current Visit: Yes Status: Acute Sodium levels overcorrected/hypernatremia Change IV fluids to D5 W, monitor sodium levels --Acidosis Current Visit: Yes Status: Acute Aggressive IV fluid resuscitation therapy, supportive care, Closely monitor -- Hypokalemia Current Visit: Yes Status: Acute Potassium supplemented, follow potassium levels --Metabolic encephalopathy Current Visit: Yes Status: Acute Suspected secondary to uremia. IV fluid resuscitation therapy Supportive care --sacral decubitus ulcer/stage IV Current Visit: Yes Status: Acute Patient has a chronic sacral stage IV ulcer with mild necrotic area and no purul ence, also right plantar wound, both chronic not infected. Wound care on board. Off loading is mainstay therapy. --DVT prophylaxis Current Visit: Yes Status: Acute SCD to bilateral lower extremities while in bed, prophylactic heparin. --Advanced care planning/counseling discussion/full code Current Visit: Yes Status: Acute Patient is full code, Plan of care reviewed with the patient, and his nurse Isolation precautions; contact and droplet isolation inplace History Interval history: I have seen and examined the patient at bedside this morning Isolation precautions, PPE per SR[facility] C protocols followed Patient looks critically ill, noncommunicative Vital signs reviewed PUI?: Yes COVID19: Positive Hospitalist Physical - Constitutional Vitals: Temp Pulse Resp BP Pulse Ox 98.0 F 85 18 129/77 91 11/02/19 04:08 11/02/19 04:08 11/02/19 04:08 11/02/19 04:08 11/02/19 09:26 General appearance: Present: mild distress, well-nourished - EENT Eyes: Present: PERRL, EOM intact - Neck Neck: Present: supple, normal ROM - Respiratory Respiratory effort: normal Respiratory: bilateral: diminished, rhonchi, negative: rales, wheezing - Cardiovascular Rhythm: regular Heart Sounds: Present: S1 & S2 - Extremities Extremities: no ischemia, No edema - Abdominal General gastrointestinal: soft, non-tender, normal bowel sounds - Integumentary Integumentary: Present: clear, warm - Psychiatric Psychiatric: other (Noncommunicative) - Neurologic Neurologic: other (Noncommunicative) Results - Labs CBC & Chem 7: 10/31/19 05:32 11/02/19 03:28 Labs: Laboratory Last Values WBC 6.0 K/mm3 (4.5-11.0) 10/31/19 05:32 RBC 4.95 M/mm3 (3.65-5.03) 10/31/19 05:32 Hgb 12.6 gm/dl (11.8-15.2) 10/31/19 05:32 Hct 39.9 % (35.5-45.6) 10/31/19 05:32 MCV 81 fl (84-94) L 10/31/19 05:32 MCH 26 pg (28-32) L 10/31/19 05:32 MCHC 32 % (32-34) 10/31/19 05:32 RDW 20.4 % (13.2-15.2) H 10/31/19 05:32 Plt Count 126 K/mm3 (140-440) L 10/31/19 05:32 Lymph % (Auto) 17.4 % (13.4-35.0) 10/30/19 08:01 [place] % (Auto) 7.9 % (0.0-7.3) H 10/30/19 08:01 Eos % (Auto) 0.1 % (0.0-4.3) 10/30/19 08:01 Baso % (Auto) 0.5 % (0.0-1.8) 10/30/19 08:01 Lymph # 1.1 K/mm3 (1.2-5.4) L 10/30/19 08:01 [place] # 0.5 K/mm3 (0.0-0.8) 10/30/19 08:01 Eos # 0.0 K/mm3 (0.0-0.4) 10/30/19 08:01 Baso # 0.0 K/mm3 (0.0-0.1) 10/30/19 08:01 Add Manual Diff Complete 10/31/19 05:32 Total Counted 100 10/31/19 05:32 Seg Neutrophils % 74.1 % (40.0-70.0) H 10/30/19 08:01 Seg Neuts % (Manual) 80.0 % (40.0-70.0) H 10/31/19 05:32 Band Neutrophils % 0 % 10/31/19 05:32 Lymphocytes % (Manual) 13.0 % (13.4-35.0) L 10/31/19 05:32 Reactive Lymphs % (Man) 0 % 10/31/19 05:32 Monocytes % (Manual) 6.0 % (0.0-7.3) 10/31/19 05:32 Eosinophils % (Manual) 1.0 % (0.0-4.3) 10/31/19 05:32 Basophils % (Manual) 0 % (0.0-1.8) 10/31/19 05:32 Metamyelocytes % 0 % 10/31/19 05:32 Myelocytes % 0 % 10/31/19 05:32 Promyelocytes % 0 % 10/31/19 05:32 Blast Cells % 0 % 10/31/19 05:32 Nucleated RBC % 2.0 % (0.0-0.9) H 10/31/19 05:32 Seg Neutrophils # 4.9 K/mm3 (1.8-7.7) 10/30/19 08:01 Seg Neutrophils # Man 4.8 K/mm3 (1.8-7.7) 10/31/19 05:32 Band Neutrophils # 0.0 K/mm3 10/31/19 05:32 Lymphocytes # (Manual) 0.8 K/mm3 (1.2-5.4) L 10/31/19 05:32 Abs React Lymphs (Man) 0.0 K/mm3 10/31/19 05:32 Monocytes # (Manual) 0.4 K/mm3 (0.0-0.8) 10/31/19 05:32 Eosinophils # (Manual) 0.1 K/mm3 (0.0-0.4) 10/31/19 05:32 Basophils # (Manual) 0.0 K/mm3 (0.0-0.1) 10/31/19 05:32 Metamyelocytes # 0.0 K/mm3 10/31/19 05:32 Myelocytes # 0.0 K/mm3 10/31/19 05:32 Promyelocytes # 0.0 K/mm3 10/31/19 05:32 Blast Cells # 0.0 K/mm3 10/31/19 05:32 WBC Morphology Not Reportable 10/31/19 05:32 Hypersegmented Neuts Not Reportable 10/31/19 05:32 Hyposegmented Neuts Not Reportable 10/31/19 05:32 Hypogranular Neuts Not Reportable 10/31/19 05:32 Smudge Cells Not Reportable 10/31/19 05:32 Toxic Granulation Not Reportable 10/31/19 05:32 Toxic Vacuolation Not Reportable 10/31/19 05:32 Dohle Bodies Not Reportable 10/31/19 05:32 Pelger-Huet Anomaly Not Reportable 10/31/19 05:32 Everett Rods Not Reportable 10/31/19 05:32 Platelet Estimate Consistent w auto 10/31/19 05:32 Clumped Platelets Not Reportable 10/31/19 05:32 Plt Clumps, EDTA Not Reportable 10/31/19 05:32 Large Platelets Not Reportable 10/31/19 05:32 Giant Platelets Not Reportable 10/31/19 05:32 Platelet Satelliting Not Reportable 10/31/19 05:32 Plt Morphology Comment Not Reportable 10/31/19 05:32 RBC Morphology Not Reportable 10/31/19 05:32 Dimorphic RBCs Not Reportable 10/31/19 05:32 Polychromasia Not Reportable 10/31/19 05:32 Hypochromasia Few 10/31/19 05:32 Poikilocytosis Not Reportable 10/31/19 05:32 Anisocytosis 1+ 10/31/19 05:32 Microcytosis Not Reportable 10/31/19 05:32 Macrocytosis Not Reportable 10/31/19 05:32 Spherocytes Not Reportable 10/31/19 05:32 Pappenheimer Bodies Not Reportable 10/31/19 05:32 Sickle Cells Not Reportable 10/31/19 05:32 Target Cells Not Reportable 10/31/19 05:32 Tear Drop Cells Not Reportable 10/31/19 05:32 Ovalocytes Not Reportable 10/31/19 05:32 Helmet Cells Not Reportable 10/31/19 05:32 [place] Bodies Not Reportable 10/31/19 05:32 Climax Rings Not Reportable 10/31/19 05:32 Aric Cells Not Reportable 10/31/19 05:32 Bite Cells Not Reportable 10/31/19 05:32 Crenated Cell Not Reportable 10/31/19 05:32 Elliptocytes Not Reportable 10/31/19 05:32 Acanthocytes (Spur) Not Reportable 10/31/19 05:32 Rouleaux Not Reportable 10/31/19 05:32 Hemoglobin C Crystals Not Reportable 10/31/19 05:32 Schistocytes Not Reportable 10/31/19 05:32 Malaria parasites Not Reportable 10/31/19 05:32 Aristides Bodies Not Reportable 10/31/19 05:32 Hem Pathologist Commnt No 10/31/19 05:32 D-Dimer 1583.19 ng/mlDDU (0-234) H 11/01/19 06:20 Sodium 151 mmol/L (137-145) H 11/02/19 03:28 Potassium 3.8 mmol/L (3.6-5.0) 11/02/19 03:28 Chloride 124.2 mmol/L (98-107) H 11/02/19 03:28 Carbon Dioxide 17 mmol/L (22-30) L 11/02/19 03:28 Anion Gap 14 mmol/L 11/02/19 03:28 BUN 77 mg/dL (9-20) H 11/02/19 03:28 Creatinine 2.1 mg/dL (0.8-1.5) H 11/02/19 03:28 Estimated GFR 39 ml/min 11/02/19 03:28 BUN/Creatinine Ratio 37 % 11/02/19 03:28 Glucose 107 mg/dL (75-100) H 11/02/19 03:28 POC Glucose 82 (70-105) 11/02/19 08:08 Lactic Acid 1.00 mmol/L (0.7-2.0) 10/28/19 15:25 Calcium 8.3 mg/dL (8.4-10.2) L 11/02/19 03:28 Phosphorus 5.10 mg/dL (2.5-4.5) H 10/29/19 06:59 Magnesium 2.10 mg/dL (1.7-2.3) 10/29/19 06:59 Ferritin 1333.0 ng/mL (13.0-400.0) H 11/01/19 06:20 Total Bilirubin 0.40 mg/dL (0.1-1.2) 10/31/19 05:32 Direct Bilirubin < 0.2 mg/dL (0-0.2) 10/28/19 11:22 Indirect Bilirubin 0.2 mg/dL 10/28/19 11:22 AST 267 units/L (5-40) H 10/31/19 05:32 ALT 77 units/L (7-56) H 10/31/19 05:32 Alkaline Phosphatase 82 units/L (35-129) 10/31/19 05:32 Lactate Dehydrogenase 609 units/L (91-180) H 11/01/19 06:20 C-Reactive Protein 17.50 mg/dL (0.00-1.30) H 11/01/19 06:20 Total Protein 7.3 g/dL (6.3-8.2) D 10/31/19 05:32 Albumin 2.0 g/dL (3.9-5) L 10/31/19 05:32 Albumin/Globulin Ratio 0.4 % 10/31/19 05:32 Lipase 89 units/L (13-60) H 10/28/19 11:22 Procalcitonin 91.05 ng/mL (<0.15) 10/28/19 13:31 PTH Intact 120.0 pg/mL (15-65) H 10/29/19 06:59 Urine Color Yellow (Yellow) 10/29/19 00:47 Urine Turbidity Cloudy (Clear) 10/29/19 00:47 Urine pH 6.0 (5.0-7.0) 10/29/19 00:47 Ur Specific [place] 1.010 (1.003-1.030) 10/29/19 00:47 Urine Protein 30 mg/dl mg/dL (Negative) 10/29/19 00:47 Urine Glucose (UA) Neg mg/dL (Negative) 10/29/19 00:47 Urine Ketones Neg mg/dL (Negative) 10/29/19 00:47 Urine Blood Lg (Negative) 10/29/19 00:47 Urine Nitrite Pos (Negative) 10/29/19 00:47 Urine Bilirubin Neg (Negative) 10/29/19 00:47 Urine Urobilinogen < 2.0 mg/dL (<2.0) 10/29/19 00:47 Ur Leukocyte Esterase Lg (Negative) 10/29/19 00:47 Urine WBC (Auto) > 182.0 /HPF (0.0-6.0) H 10/29/19 00:47 Urine RBC (Auto) 58.0 /HPF (0.0-6.0) 10/29/19 00:47 U Epithel Cells (Auto) < 1.0 /HPF (0-13.0) 10/29/19 00:47 Urine Bacteria (Auto) 4+ /HPF (Negative) 10/29/19 00:47 Urine WBC Clumps 2+ /HPF 10/28/19 14:55 Urine Mucus Few /HPF 10/28/19 14:55 Urine Yeast (Budding) 2+ /HPF 10/28/19 14:55 Urine Creatinine 86.8 mg/dL (0.1-20.0) H 10/28/19 14:55 Urine Sodium 42 mmol/L 10/28/19 14:55 Influenza A (Rapid) Negative (Negative) 11/01/19 15:30 Influenza A (RT-PCR) Negative (Negative) 11/01/19 15:30 Influenza B (Rapid) Negative (Negative) 11/01/19 15:30 Influenza B (RT-PCR) Negative (Negative) 11/01/19 15:30 Miscellaneous Test See scanned result 11/01/19 Unknown Microbiology: Microbiology 10/28/19 Unknown Peripheral/Venous Blood Culture - Preliminary NO GROWTH AFTER 4 DAYS 10/28/19 Unknown Peripheral/Venous Blood Culture - Preliminary NO GROWTH AFTER 4 DAYS [place]/IV: Voiding Method Indwelling Catheter IV Catheter Type [Left Wrist] Peripheral IV IV Catheter Type [Right Hand] Peripheral IV Active Medications - Current Medications Current Medications: Generic Name Dose Route Start Last Admin Trade Name Freq PRN Reason Stop Dose Admin Acetaminophen 650 mg 10/28/19 13:12 10/30/19 21:39 Tylenol PO 650 mg Q4H PRN Administration Pain MILD(1-3)/Fever >100.5/EDUARDO Acetaminophen/Codeine Phosphate 1 tab 10/28/19 13:14 11/01/19 02:04 Tylenol #3 PO 1 tab Q6H PRN Administration Pain, Moderate (4-6) Albuterol 2.5 mg 10/28/19 13:12 Proventil IH Q4HRT PRN Shortness Of Breath Dextrose 50 ml 10/29/19 08:00 10/29/19 12:35 D50w (25gm) Syringe IV 50 ml Q30MIN PRN Administration Hypoglycemia Protocol Hydroxychloroquine Sulfate 200 mg 10/31/19 10:00 11/02/19 08:27 Plaquenil PO 11/03/19 22:01 200 mg BID FAYE Administration Dextrose 1,000 mls @ 75 mls/hr 10/31/19 08:00 11/02/19 05:30 D5w IV 75 mls/hr DIRECT FAYE Administration Cefepime HCl 2 gm in 100 mls @ 200 mls/hr 10/31/19 10:00 11/02/19 08:26 Cefepime/Ns 2 Gm/100 Ml IV 200 mls/hr Q12HR FAYE Administration Ondansetron HCl 4 mg 10/28/19 13:12 Zofran IV Q8H PRN Nausea And Vomiting Sodium Chloride 10 ml 10/28/19 22:00 11/02/19 08:27 Sodium Chloride Flush Syringe 10 Ml IV 10 ml BID FAYE Administration Sodium Chloride 10 ml 10/28/19 13:12 Sodium Chloride Flush Syringe 10 Ml IV PRN PRN LINE FLUSH Zinc Sulfate 220 mg 10/31/19 12:00 11/01/19 14:06 Zinc Sulfate PO 11/03/19 12:01 220 mg DAILY@1200 FAYE Administration Nutrition/Malnutrition Assess - Dietary Evaluation Nutrition/Malnutrition Findings: Nutrition Notes Start: 10/29/19 08:36 Freq: Status: Active Protocol: Document 11/01/19 12:53 LM (Rec: 11/01/19 12:57 LM [email or web address]) Nutrition Notes Initial or Follow up Reassessment Current Diagnosis Acute Kidney Injury,Decubitus( Pressure Ulcer),Diabetes, Hypertension Other Pertinent Diagnosis Sacreal and heel wound, pneu Current Diet Cardiac Labs/Tests Na 153 Pertinent Medications Reviewed Height 6 ft 2 in Weight 89 kg [place] Body Weight (kg) 86.36 BMI 25.2 Weight Status Overweight Subjective/Other Information Unable to speak to pt. 0% of breakfast was recorded in chart. Percent of energy/protein needs met: 0%/0% Burn Absent Trauma Absent Minimum of two criteria No Fluid Accumulation Moderate to Severe (severe) #1 Nutrition Diagnosis Increased nutrient needs ( specify in comment below) Diagnosis Progress(for reassessment Continues documentation) Is patient on ventilator? No Is Patient Ambulatory and/or Out of Bed No REE-([facility]-confined to bed) [phone] Calculation Used for Recommendations [facility] Additional Notes Protein needs are 113-136g (1. 2-1.5g/kg) Fluid needs are 1ml/kcal Nutrition Intervention Change Diet Order: Cardiac Add Supplement/Snack (indicate name/kcal Ensure High protein BID /protein ) Provides kCal: 320 Provides Protein (gm) 32 Goal #1 Meet at least 80% of kcal and protein needs Goal #2 Wound healing Anticipated Discharge Needs: Cardiac diet with ONS BID Follow-Up By: 11/03/19 Additional Comments F/U for PO/ONS intakes
[2019-11-02] MEDS: ZINC SULFATE 220 MG CAP PO SCH (12:24)
--- NOTE | 2019-11-02 17:46 | Progress Note ---
Assessment and Plan Cultures: Blood cultures 10/28/2019 no growth today. Assessment: 51 years old male with history of chronic kidney disease, diabetes, previous diabetic foot infection status post left BKA, hypertension, resident of [facility], admitted on 10/28/2019 due to altered mental status with confusion and lethargy, generalized weakness, dry cough, diarrhea for a week: #Severe sepsis with MODS: present on admission with fever, tachycardia, AMS, RAFAEL, hepatitis, likely due to bilateral pneumonia +/- UTI. Blood culture so far negative. Very high procalcitonin of unclear significance due to RAFAEL. #COVID pneumonia: CT of the chest show patchy groundglass opacities bilat erally. COVID test POSITIVE. Inflammatory markers highly elevated - LDH 716. Ferritin 1098--> 1332. D-dimer 1579. CRP 27. High risk for ARDS. #Complicated UTI with severe bilateral hydro: s/p duncan, #RAFAEL on CKD: Urinalysis showed more than 180 white blood cells with large leukocyte esterase. CT of the abdomen show severe hydroureteronephrosis with distended bladder. #Acute encephalopathy: some better #Eleveted LFTs: from sepsis/ COVID. ALT 160. AST 233. #Thrombocytopenia: from sepsis, not better #Diarrhea: likely from COVID #Acute hypoxemia: now on NC O2 #Elevated LFTs: from COVID or sepsis #RAFAEL: renally adjust abx - better Recommendations: right arm US eval for Obtain urine culture - pending Continue Cefepime renally adjusted Check serial Ferritin, LDH, D-Dimer, CRP every 48 hour Obtain IL-6 - pending Continue hydroxychloroquine (total 5 days) with zinc Daily EKG/telemetry QT monitoring - stop plaquenil if QT interval >500 Renal on board Continue COVID isolation precautions per [facility] protocol High risk mortality Will follow Jenni Friend MD Infectious Diseases Maintenance [employer] [facility] ([facility]) M [phone] O [phone] Subjective Date of service: 11/02/19 Principal diagnosis: ,+RAFAEL/CKD, bilateral pneumonia Interval history: More sleepy, non verbal Objective - Exam Narrative Exam: Exam performed in conjunction with nursing staff due to lack of PPE General appearance: alert confused Eyes: limited due to lack of PPE HENT: Atraumatic; oropharynx limited due to lack of PPE Lungs: diminished BS bilateral CV: RRR Abdomen: limited due to lack of PPE Extremities: limited due to lack of PPE Skin: No rash. Psych:no agitated Neuro: alert confused - Constitutional Vitals: Vital Signs Temp Pulse Resp BP Pulse Ox 97.6 F 87 20 114/78 96 11/02/19 11:09 11/02/19 11:09 11/02/19 11:09 11/02/19 11:09 11/02/19 11:09 Temperature -Last 24 Hours Temperature 97.6 F Temperature 98.0 F Temperature 97.9 F - Labs CBC & Chem 7: 10/31/19 05:32 11/02/19 03:28 Labs: Abnormal lab results 11/01/19 11/02/19 11/02/19 Range/Units 21:31 03:28 16:26 Sodium 151 H (137-145) mmol/L Chloride 124.2 H (98-107) mmol/L Carbon Dioxide 17 L (22-30) mmol/L BUN 77 H (9-20) mg/dL Creatinine 2.1 H (0.8-1.5) mg/dL Glucose 107 H (75-100) mg/dL POC Glucose 186 H 126 H (70-105) Calcium 8.3 L (8.4-10.2) mg/dL
[2019-11-03 05:16] LABS: Calcium 8.8 mg/dL (8.4-10.2)
[2019-11-03] MEDS: CEFEPIME/NS 2 GM/100 ML 2 GM/100 ML BAG IV SCH ×2 (09:38→21:49)
[2019-11-03] MEDS: HYDROXYCHLOROQUINE 200 MG TAB PO SCH ×2 (09:38→21:40)
--- NOTE | 2019-11-03 12:13 | Vascular Lab Report ---
RIGHT UPPER EXTREMITY VENOUS DOPPLER ULTRASOUND HISTORY: Right upper extremity swelling, evaluate for DVT. COMPARISON: None. TECHNIQUE: Grayscale, color and spectral Doppler imaging of the venous system of the right upper extr emity was performed. FINDINGS: Internal Jugular Vein: Normal grayscale appearance and flow. Subclavian Vein: Normal grayscale appearance and flow. Axillary Vein: Normal venous flow, compressibility and augmentation. Brachial vein: Normal venous flow, compressibility and augmentation. Radial vein: Normal venous flow, compressibility and augmentation. Ulnar vein: Normal venous flow, compressibility and augmentation. Additional Findings: Focal superficial venous thrombosis is noted in the cephalic vein at the level o f the distal forearm. The basilic vein is patent. IMPRESSION: No evidence for DVT in the right upper extremity. Focal superficial venous thrombosis is noted in the distal cephalic vein. Signer Name: Mario Hines Jr, MD Signed: 11/03/2019 12:09 PM Workstation Name: [id number]
[2019-11-03] MEDS: ZINC SULFATE 220 MG CAP PO SCH (12:37)
[2019-11-03] MEDS: DEXTROSE 5% IN WATER 1,000 ML IV SCH (12:39)
--- NOTE | 2019-11-03 12:52 | Progress Note ---
Assessment and Plan 1. Acute kidney injury: Likely vasomotor RAFAEL superimposed on CKD stage 3 in the setting of volume depletion, hypotension, SIRS/sepsis and obstructive uropathy. CT abdomen showed bilateral hydronephrosis. Creatinine in November 2018 was 2.1 which is likely his baseline. Continue IV fluids. Creatinine slowly improving. Monitor renal function. Renal prognosis is guarded. Avoid nephrotoxic agents. Meds dosage based on GFR. 2. FEN: Hypernatremia, continue D5W, started on Diuril (11/02), monitor. Hyperkalemia, improved, monitor. Metabolic acidosis, monitor. Monitor lytes and volume status. 3. Bilateral hydronephrosis: Secondary to bladder retention. S/p duncan catheter. 4. Bilateral pneumonia: Pneumonia protocol. Supplemental oxygen, nebulizer therapy and IV antibiotic therapy. Follow blood culture. COVID positive. 5. SIRS / Sepsis: Likely 2/ PNA. 6. Suspected COVID-19 virus infection. 7. Metabolic encephalopathy: Toxic metabolic, POA. 8. R foot wound, POA. - Subjective: Patient was seen and examined at the bedside. No acute events reported. - General Appearance General appearance: well-developed, appears stated age, not in distress HEENT: ATNC, YRN Neck: neck supple, trachea midline Respiratory: Clear to Ascultation, poor effort Heart: regular, S1S2, no murmurs Gastrointestinal: soft, normoactive bowel sounds, not tender Integumentary: ulcer R foot sole Neurologic: somnolent, only able to tell his name Ext: no edema, R flat foot, L BKA : Duncan catheter Subjective Date of service: 11/03/19 Principal diagnosis: ,+RAFAEL/CKD, bilateral pneumonia PUI?: Yes COVID19: Positive Objective - Vital Signs Vital signs: Vital Signs - 12hr 11/03/19 11/03/19 11/03/19 04:53 05:00 10:00 Temperature 97.9 F Pulse Rate 84 Respiratory 20 Rate Blood Pressure 149/83 O2 Sat by Pulse 95 95 Oximetry 11/03/19 11:31 Temperature 97.9 F Pulse Rate 90 Respiratory 20 Rate Blood Pressure 142/86 O2 Sat by Pulse 96 Oximetry - Lab 10/31/19 05:32 11/03/19 04:25 Most recent lab results Calcium 8.8 mg/dL (8.4-10.2) 11/03/19 04:25 Phosphorus 3.70 mg/dL (2.5-4.5) 11/03/19 04:25 Magnesium 2.10 mg/dL (1.7-2.3) 10/29/19 06:59 Urine Creatinine 86.8 mg/dL (0.1-20.0) H 10/28/19 14:55 Urine Sodium 42 mmol/L 10/28/19 14:55 Medications & Allergies - Medications Allergies/Adverse Reactions: Allergies No Known Allergies Allergy (Verified 01/05/15 14:31) Home Medications: Home Medications Medication Instructions Recorded Confirmed Last Taken Type hydrALAZINE [Apresoline TAB] 25 mg PO Q8HR #90 tablet 08/25/14 11/01/19 12/08/18 21:00 Rx Pregabalin [Lyrica] 200 mg PO TID 05/29/16 11/01/19 12/08/18 21:00 History Adult Probiotic 1 tab PO DAILY 11/01/19 11/01/19 Unknown History Aspirin BABY CHEW TAB 81 mg PO DAILY 11/01/19 11/01/19 Unknown History Baby Vitamin D3 2,000 units PO DAILY 11/01/19 11/01/19 Unknown History Brimonidine Tartrate 0.2% 1 drop OU QHS 11/01/19 11/01/19 Unknown History Colchicine 0.6 mg PO BID 11/01/19 11/01/19 Unknown History DUONEB *Not for PRN Use* 0.5 - 2.5 mg INHALATION Q6HR PRN 11/01/19 11/01/19 Unknown History Hydrocodone-Acetamin 10-325/15 1 tab PO TID PRN 11/01/19 11/01/19 Unknown History Lipitor 10 mg PO QHS 11/01/19 11/01/19 Unknown History Loperamide 2 mg PO Q24HR PRN 11/01/19 11/01/19 Unknown History Metoprolol 25 mg PO DAILY 11/01/19 11/01/19 Unknown History Robitussin Cough-Chest Dm Liq 15 ml PO BID 11/01/19 11/01/19 Unknown History Sennosides [Senna] 8.6 mg PO Q24HR PRN 11/01/19 11/01/19 Unknown History Verapamil 180 mg PO BID 11/01/19 11/01/19 Unknown History traMADoL 50 mg PO Q6HR PRN 11/01/19 11/01/19 Unknown History Active Medications: Generic Name Dose Route Start Last Admin Trade Name Freq PRN Reason Stop Dose Admin Acetaminophen 650 mg 10/28/19 13:12 10/30/19 21:39 Tylenol PO 650 mg Q4H PRN Administration Pain MILD(1-3)/Fever >100.5/EDUARDO Acetaminophen/Codeine Phosphate 1 tab 10/28/19 13:14 11/01/19 02:04 Tylenol #3 PO 1 tab Q6H PRN Administration Pain, Moderate (4-6) Albuterol 2.5 mg 10/28/19 13:12 Proventil IH Q4HRT PRN Shortness Of Breath Dextrose 50 ml 10/29/19 08:00 10/29/19 12:35 D50w (25gm) Syringe IV 50 ml Q30MIN PRN Administration Hypoglycemia Protocol Hydroxychloroquine Sulfate 200 mg 10/31/19 10:00 11/03/19 09:38 Plaquenil PO 11/03/19 22:01 200 mg BID FAYE Administration Dextrose 1,000 mls @ 75 mls/hr 10/31/19 08:00 11/03/19 12:39 D5w IV 75 mls/hr DIRECT FAYE Administration Cefepime HCl 2 gm in 100 mls @ 200 mls/hr 10/31/19 10:00 11/03/19 09:38 Cefepime/Ns 2 Gm/100 Ml IV 200 mls/hr Q12HR FAYE Administration Ondansetron HCl 4 mg 10/28/19 13:12 Zofran IV Q8H PRN Nausea And Vomiting Sodium Chloride 10 ml 10/28/19 22:00 11/03/19 09:38 Sodium Chloride Flush Syringe 10 Ml IV 10 ml BID FAYE Administration Sodium Chloride 10 ml 10/28/19 13:12 Sodium Chloride Flush Syringe 10 Ml IV PRN PRN LINE FLUSH
[2019-11-03] MEDS: ACETAMINOPHEN W/CODEINE 300-30 MG TAB PO PRN (13:09)
[2019-11-03] MEDS ORDERED: WATER FOR INJ Sterile (PF) 10 ML IV PRN (14:00)
--- NOTE | 2019-11-03 14:47 | Progress Note ---
Assessment and Plan Assessment and plan: --Right upper extremity swelling: Current Visit: Yes Status: Acute Venous Doppler negative for DVT, superficial thrombosis Elevate the limb, Supportive care, will try not to use the limb for IV infusion --Severe sepsis due to COVID-19 positive bilateral pneumonia. Current Visit: Yes Status: Acute Very poor prognosis s/p empiric IV antibiotic therapy, Covid test positive. Oxygen titrate O2 sats to more than 90%. IV cefepime, hydro-chloroquine and zinc per ID D-dimer, LDH, procalcitonin, ferritin level, --Elevated D-dimers; Patient had CT chest on 10/28/2019, bilateral pneumonia --RAFEAL (acute kidney injury) on CKD Current Visit: Yes Status: Acute Due to vasomotor nephropathy, gentle hydration, avoid nephrotoxins. Nephrology following, monitor renal function --Hyponatremia resolved Current Visit: Yes Status: Acute Sodium levels overcorrected/hypernatremia Change IV fluids to D5 W, monitor sodium levels --Acidosis Current Visit: Yes Status: Acute Aggressive IV fluid resuscitation therapy, supportive care, Closely monitor -- Hypokalemia Current Visit: Yes Status: Acute Potassium supplemented, follow potassium levels --Metabolic encephalopathy Current Visit: Yes Status: Acute Suspected secondary to uremia. IV fluid resuscitation therapy Supportive care --sacral decubitus ulcer/stage IV Current Visit: Yes Status: Acute Patient has a chronic sacral stage IV ulcer with mild necrotic area and no pur ulence, also right plantar wound, both chronic not infected. Wound care on board. Off loading is mainstay therapy. --DVT prophylaxis Current Visit: Yes Status: Acute SCD to bilateral lower extremities while in bed, prophylactic heparin. --Advanced care planning/counseling discussion/full code Current Visit: Yes Status: Acute Patient is full code, Plan of care reviewed with the patient, and his nurse Isolation precautions; contact and droplet isolation inplace History Interval history: Patient seen and examined at the bedside this morning Appropriate PPE and isolation precautions observed Per [facility] protocols Patient minimally communicative, severe distress Chronically ill looking cachectic Vital signs noted PUI?: Yes COVID19: Positive Hospitalist Physical - Constitutional Vitals: Temp Pulse Resp BP Pulse Ox 97.9 F 90 20 142/86 96 11/03/19 11:31 11/03/19 11:31 11/03/19 11:31 11/03/19 11:31 11/03/19 11:31 General appearance: Present: mild distress, cachectic, disheveled - EENT Eyes: Present: PERRL, EOM intact - Neck Neck: Present: supple, normal ROM - Respiratory Respiratory effort: normal Respiratory: bilateral: diminished, rhonchi, negative: rales, wheezing - Cardiovascular Rhythm: regular Heart Sounds: Present: S1 & S2 - Extremities Extremities: no ischemia, No edema, abnormal (Below-knee amputation) - Abdominal General gastrointestinal: soft, non-tender, non-distended, distended, normal bowel sounds - Integumentary Integumentary: Present: clear, warm - Psychiatric Psychiatric: other - Neurologic Neurologic: moves all extremities (Noncommunicative) Results - Labs CBC & Chem 7: 10/31/19 05:32 11/04/19 04:27 Labs: Laboratory Last Values WBC 6.0 K/mm3 (4.5-11.0) 10/31/19 05:32 RBC 4.95 M/mm3 (3.65-5.03) 10/31/19 05:32 Hgb 12.6 gm/dl (11.8-15.2) 10/31/19 05:32 Hct 39.9 % (35.5-45.6) 10/31/19 05:32 MCV 81 fl (84-94) L 10/31/19 05:32 MCH 26 pg (28-32) L 10/31/19 05:32 MCHC 32 % (32-34) 10/31/19 05:32 RDW 20.4 % (13.2-15.2) H 10/31/19 05:32 Plt Count 126 K/mm3 (140-440) L 10/31/19 05:32 Lymph % (Auto) 17.4 % (13.4-35.0) 10/30/19 08:01 [place] % (Auto) 7.9 % (0.0-7.3) H 10/30/19 08:01 Eos % (Auto) 0.1 % (0.0-4.3) 10/30/19 08:01 Baso % (Auto) 0.5 % (0.0-1.8) 10/30/19 08:01 Lymph # 1.1 K/mm3 (1.2-5.4) L 10/30/19 08:01 [place] # 0.5 K/mm3 (0.0-0.8) 10/30/19 08:01 Eos # 0.0 K/mm3 (0.0-0.4) 10/30/19 08:01 Baso # 0.0 K/mm3 (0.0-0.1) 10/30/19 08:01 Add Manual Diff Complete 10/31/19 05:32 Total Counted 100 10/31/19 05:32 Seg Neutrophils % 74.1 % (40.0-70.0) H 10/30/19 08:01 Seg Neuts % (Manual) 80.0 % (40.0-70.0) H 10/31/19 05:32 Band Neutrophils % 0 % 10/31/19 05:32 Lymphocytes % (Manual) 13.0 % (13.4-35.0) L 10/31/19 05:32 Reactive Lymphs % (Man) 0 % 10/31/19 05:32 Monocytes % (Manual) 6.0 % (0.0-7.3) 10/31/19 05:32 Eosinophils % (Manual) 1.0 % (0.0-4.3) 10/31/19 05:32 Basophils % (Manual) 0 % (0.0-1.8) 10/31/19 05:32 Metamyelocytes % 0 % 10/31/19 05:32 Myelocytes % 0 % 10/31/19 05:32 Promyelocytes % 0 % 10/31/19 05:32 Blast Cells % 0 % 10/31/19 05:32 Nucleated RBC % 2.0 % (0.0-0.9) H 10/31/19 05:32 Seg Neutrophils # 4.9 K/mm3 (1.8-7.7) 10/30/19 08:01 Seg Neutrophils # Man 4.8 K/mm3 (1.8-7.7) 10/31/19 05:32 Band Neutrophils # 0.0 K/mm3 10/31/19 05:32 Lymphocytes # (Manual) 0.8 K/mm3 (1.2-5.4) L 10/31/19 05:32 Abs React Lymphs (Man) 0.0 K/mm3 10/31/19 05:32 Monocytes # (Manual) 0.4 K/mm3 (0.0-0.8) 10/31/19 05:32 Eosinophils # (Manual) 0.1 K/mm3 (0.0-0.4) 10/31/19 05:32 Basophils # (Manual) 0.0 K/mm3 (0.0-0.1) 10/31/19 05:32 Metamyelocytes # 0.0 K/mm3 10/31/19 05:32 Myelocytes # 0.0 K/mm3 10/31/19 05:32 Promyelocytes # 0.0 K/mm3 10/31/19 05:32 Blast Cells # 0.0 K/mm3 10/31/19 05:32 WBC Morphology Not Reportable 10/31/19 05:32 Hypersegmented Neuts Not Reportable 10/31/19 05:32 Hyposegmented Neuts Not Reportable 10/31/19 05:32 Hypogranular Neuts Not Reportable 10/31/19 05:32 Smudge Cells Not Reportable 10/31/19 05:32 Toxic Granulation Not Reportable 10/31/19 05:32 Toxic Vacuolation Not Reportable 10/31/19 05:32 Dohle Bodies Not Reportable 10/31/19 05:32 Pelger-Huet Anomaly Not Reportable 10/31/19 05:32 [place] Rods Not Reportable 10/31/19 05:32 Platelet Estimate Consistent w auto 10/31/19 05:32 Clumped Platelets Not Reportable 10/31/19 05:32 Plt Clumps, EDTA Not Reportable 10/31/19 05:32 Large Platelets Not Reportable 10/31/19 05:32 Giant Platelets Not Reportable 10/31/19 05:32 Platelet Satelliting Not Reportable 10/31/19 05:32 Plt Morphology Comment Not Reportable 10/31/19 05:32 RBC Morphology Not Reportable 10/31/19 05:32 Dimorphic RBCs Not Reportable 10/31/19 05:32 Polychromasia Not Reportable 10/31/19 05:32 Hypochromasia Few 10/31/19 05:32 Poikilocytosis Not Reportable 10/31/19 05:32 Anisocytosis 1+ 10/31/19 05:32 Microcytosis Not Reportable 10/31/19 05:32 Macrocytosis Not Reportable 10/31/19 05:32 Spherocytes Not Reportable 10/31/19 05:32 Pappenheimer Bodies Not Reportable 10/31/19 05:32 Sickle Cells Not Reportable 10/31/19 05:32 Target Cells Not Reportable 10/31/19 05:32 Tear Drop Cells Not Reportable 10/31/19 05:32 Ovalocytes Not Reportable 10/31/19 05:32 Helmet Cells Not Reportable 10/31/19 05:32 [place] Bodies Not Reportable 10/31/19 05:32 Stow Rings Not Reportable 10/31/19 05:32 [place] Cells Not Reportable 10/31/19 05:32 Bite Cells Not Reportable 10/31/19 05:32 Crenated Cell Not Reportable 10/31/19 05:32 Elliptocytes Not Reportable 10/31/19 05:32 Acanthocytes (Spur) Not Reportable 10/31/19 05:32 Rouleaux Not Reportable 10/31/19 05:32 Hemoglobin C Crystals Not Reportable 10/31/19 05:32 Schistocytes Not Reportable 10/31/19 05:32 Malaria parasites Not Reportable 10/31/19 05:32 Aristides Bodies Not Reportable 10/31/19 05:32 Hem Pathologist Commnt No 10/31/19 05:32 D-Dimer 1480.65 ng/mlDDU (0-234) H 11/03/19 04:25 Sodium 154 mmol/L (137-145) H 11/03/19 04:25 Potassium 3.8 mmol/L (3.6-5.0) 11/03/19 04:25 Chloride 124.7 mmol/L (98-107) H 11/03/19 04:25 Carbon Dioxide 16 mmol/L (22-30) L 11/03/19 04:25 Anion Gap 17 mmol/L 11/03/19 04:25 BUN 70 mg/dL (9-20) H 11/03/19 04:25 Creatinine 2.0 mg/dL (0.8-1.5) H 11/03/19 04:25 Estimated GFR 42 ml/min 11/03/19 04:25 BUN/Creatinine Ratio 35 % 11/03/19 04:25 Glucose 128 mg/dL (75-100) H 11/03/19 04:25 POC Glucose 114 (70-105) H 11/03/19 11:41 Lactic Acid 1.00 mmol/L (0.7-2.0) 10/28/19 15:25 Calcium 8.8 mg/dL (8.4-10.2) 11/03/19 04:25 Phosphorus 3.70 mg/dL (2.5-4.5) 11/03/19 04:25 Magnesium 2.10 mg/dL (1.7-2.3) 10/29/19 06:59 Ferritin 940.6 ng/mL (13.0-400.0) H 11/03/19 04:25 Total Bilirubin 0.40 mg/dL (0.1-1.2) 10/31/19 05:32 Direct Bilirubin < 0.2 mg/dL (0-0.2) 10/28/19 11:22 Indirect Bilirubin 0.2 mg/dL 10/28/19 11:22 AST 267 units/L (5-40) H 10/31/19 05:32 ALT 77 units/L (7-56) H 10/31/19 05:32 Alkaline Phosphatase 82 units/L (35-129) 10/31/19 05:32 Lactate Dehydrogenase 534 units/L (91-180) H 11/03/19 04:25 C-Reactive Protein 11.00 mg/dL (0.00-1.30) H 11/03/19 04:25 Total Protein 7.3 g/dL (6.3-8.2) D 10/31/19 05:32 Albumin 2.0 g/dL (3.9-5) L 10/31/19 05:32 Albumin/Globulin Ratio 0.4 % 10/31/19 05:32 Lipase 89 units/L (13-60) H 10/28/19 11:22 Procalcitonin 91.05 ng/mL (<0.15) 10/28/19 13:31 PTH Intact 120.0 pg/mL (15-65) H 10/29/19 06:59 Urine Color Yellow (Yellow) 10/29/19 00:47 Urine Turbidity Cloudy (Clear) 10/29/19 00:47 Urine pH 6.0 (5.0-7.0) 10/29/19 00:47 Ur Specific [place] 1.010 (1.003-1.030) 10/29/19 00:47 Urine Protein 30 mg/dl mg/dL (Negative) 10/29/19 00:47 Urine Glucose (UA) Neg mg/dL (Negative) 10/29/19 00:47 Urine Ketones Neg mg/dL (Negative) 10/29/19 00:47 Urine Blood Lg (Negative) 10/29/19 00:47 Urine Nitrite Pos (Negative) 10/29/19 00:47 Urine Bilirubin Neg (Negative) 10/29/19 00:47 Urine Urobilinogen < 2.0 mg/dL (<2.0) 10/29/19 00:47 Ur Leukocyte Esterase Lg (Negative) 10/29/19 00:47 Urine WBC (Auto) > 182.0 /HPF (0.0-6.0) H 10/29/19 00:47 Urine RBC (Auto) 58.0 /HPF (0.0-6.0) 10/29/19 00:47 U Epithel Cells (Auto) < 1.0 /HPF (0-13.0) 10/29/19 00:47 Urine Bacteria (Auto) 4+ /HPF (Negative) 10/29/19 00:47 Urine WBC Clumps 2+ /HPF 10/28/19 14:55 Urine Mucus Few /HPF 10/28/19 14:55 Urine Yeast (Budding) 2+ /HPF 10/28/19 14:55 Urine Creatinine 86.8 mg/dL (0.1-20.0) H 10/28/19 14:55 Urine Sodium 42 mmol/L 10/28/19 14:55 Influenza A (Rapid) Negative (Negative) 11/01/19 15:30 Influenza A (RT-PCR) Negative (Negative) 11/01/19 15:30 Influenza B (Rapid) Negative (Negative) 11/01/19 15:30 Influenza B (RT-PCR) Negative (Negative) 11/01/19 15:30 Miscellaneous Test See scanned result 11/01/19 Unknown Microbiology: Microbiology 11/01/19 22:48 Urine,Clean Catch Urine Culture - Preliminary NO GROWTH AFTER 24 HOURS 10/28/19 Unknown Peripheral/Venous Blood Culture - Final NO GROWTH AFTER 5 DAYS 10/28/19 Unknown Peripheral/Venous Blood Culture - Final NO GROWTH AFTER 5 DAYS [place]/IV: Voiding Method Indwelling Catheter IV Catheter Type [Left Wrist] Peripheral IV IV Catheter Type [Right Hand] Peripheral IV Active Medications - Current Medications Current Medications: Generic Name Dose Route Start Last Admin Trade Name Freq PRN Reason Stop Dose Admin Acetaminophen 650 mg 10/28/19 13:12 10/30/19 21:39 Tylenol PO 650 mg Q4H PRN Administration Pain MILD(1-3)/Fever >100.5/EDUARDO Acetaminophen/Codeine Phosphate 1 tab 10/28/19 13:14 11/03/19 13:09 Tylenol #3 PO 1 tab Q6H PRN Administration Pain, Moderate (4-6) Albuterol 2.5 mg 10/28/19 13:12 Proventil IH Q4HRT PRN Shortness Of Breath Chlorothiazide Sodium 500 mg 11/03/19 14:00 Diuril IV QDAY FAYE Dextrose 50 ml 10/29/19 08:00 10/29/19 12:35 D50w (25gm) Syringe IV 50 ml Q30MIN PRN Administration Hypoglycemia Protocol Hydroxychloroquine Sulfate 200 mg 10/31/19 10:00 11/03/19 09:38 Plaquenil PO 11/03/19 22:01 200 mg BID FAYE Administration Dextrose 1,000 mls @ 75 mls/hr 10/31/19 08:00 11/03/19 12:39 D5w IV 75 mls/hr DIRECT FAYE Administration Cefepime HCl 2 gm in 100 mls @ 200 mls/hr 10/31/19 10:00 11/03/19 09:38 Cefepime/Ns 2 Gm/100 Ml IV 200 mls/hr Q12HR FAYE Administration Ondansetron HCl 4 mg 10/28/19 13:12 Zofran IV Q8H PRN Nausea And Vomiting Sodium Chloride 10 ml 10/28/19 22:00 11/03/19 09:38 Sodium Chloride Flush Syringe 10 Ml IV 10 ml BID FAYE Administration Sodium Chloride 10 ml 10/28/19 13:12 Sodium Chloride Flush Syringe 10 Ml IV PRN PRN LINE FLUSH Sterile Water 20 ml 11/03/19 14:00 Water For Inj Sterile (Pf) IV DAILY PRN CHLOROTHIAZIDE RECONSTITUTION Nutrition/Malnutrition Assess - Dietary Evaluation Nutrition/Malnutrition Findings: Nutrition Notes Start: 10/29/19 08:36 Freq: Status: Active Protocol: Document 11/03/19 11:28 LM (Rec: 11/03/19 11:45 LM [email or web address]) Nutrition Notes Initial or Follow up Reassessment Current Diagnosis Acute Kidney Injury,Decubitus( Pressure Ulcer),Diabetes, Hypertension Other Pertinent Diagnosis Sacral and heel wound, pneu Current Diet Cardiac Labs/Tests Na 154 BUN 70 Cr 2.0 Pertinent Medications Reviewed Height 6 ft 2 in Weight 88.5 kg [place] Body Weight (kg) 86.36 BMI 25.0 Weight Status Overweight Subjective/Other Information Per RN pt is not eating well ( 25% of breakfast) but drink Ensure High Protein 3x/day. Percent of energy/protein needs met: 47%/61% Burn Absent Trauma Absent Current % PO Poor (25-49%) Minimum of two criteria No Fluid Accumulation Moderate to Severe (severe) #2 Nutrition Diagnosis Inadequate oral intake Etiology COVID-19 infection, chronic illness As Evidenced by Signs and Symptoms pt with poor intakes #1 Nutrition Diagnosis Increased nutrient needs ( specify in comment below) Diagnosis Progress(for reassessment Continues documentation) Is patient on ventilator? No Is Patient Ambulatory and/or Out of Bed No REE[facility]) 2134.212 Calculation Used for Recommendations [facility] Additional Notes Protein needs are 113-136g (1. 2-1.5g/kg) Fluid needs are 1ml/kcal Nutrition Intervention Change Diet Order: Cardiac Add Supplement/Snack (indicate name/kcal Ensure High protein TID /protein ) Provides kCal: 480 Provides Protein (gm) 48 Goal #1 Meet at least 80% of kcal and protein needs Goal #2 Wound healing Anticipated Discharge Needs: Cardiac diet with ONS BID Follow-Up By: 11/14/19 Additional Comments F/U for PO/ONS intakes
[2019-11-03] MEDS: CHLOROTHIAZIDE 500 MG VIAL IV SCH (18:45)
[2019-11-04 05:52] LABS: Calcium 9.1 mg/dL (8.4-10.2)
--- NOTE | 2019-11-04 08:46 | Progress Note ---
Assessment and Plan 1. Acute kidney injury: Likely vasomotor RAFAEL superimposed on CKD stage 3 in the setting of volume depletion, hypotension, SIRS/sepsis and obstructive uropathy. CT abdomen showed bilateral hydronephrosis. Creatinine in November 2018 was 2.1 which is likely his baseline. Continue IV fluids. Creatinine leveled off. Monitor renal function. Renal prognosis is guarded. Avoid nephrotoxic agents. Meds dosage based on GFR. 2. FEN: Hypernatremia, continue D5W and Diuril (started 11/02), monitor. As Sodium level increasing also started on DDAVP. Hyperkalemia, improved, monitor. Metabolic acidosis, monitor. Monitor lytes and volume status. 3. Bilateral hydronephrosis: Secondary to bladder retention. S/p duncan catheter. 4. Bilateral pneumonia: Pneumonia protocol. Supplemental oxygen, nebulizer therapy and IV antibiotic therapy. Follow blood culture. COVID positive. 5. SIRS / Sepsis: Likely / PNA. 6. Suspected COVID-19 virus infection. 7. Metabolic encephalopathy: Toxic metabolic, POA. 8. R foot wound, POA. - Subjective: Patient was seen and examined at the bedside. No acute events reported. - General Appearance General appearance: well-developed, appears stated age, not in distress HEENT: ATNC, YRN Neck: neck supple, trachea midline Respiratory: Clear to Ascultation, poor effort Heart: regular, S1S2, no murmurs Gastrointestinal: soft, normoactive bowel sounds, not tender Integumentary: ulcer R foot sole Neurologic: alert, able to tell his name, able to move extremities, confused Ext: no edema, R flat foot, L BKA : Duncan catheter Subjective Date of service: 11/04/19 Principal diagnosis: ,+RAFAEL/CKD, bilateral pneumonia PUI?: Yes COVID19: Positive Objective - Vital Signs Vital signs: Vital Signs - 12hr 11/03/19 11/03/19 11/03/19 21:12 22:50 22:59 Temperature 98.2 F 98.2 F Pulse Rate 80 Respiratory 20 20 Rate Blood Pressure 137/81 Blood Pressure 137/81 [Left] O2 Sat by Pulse 99 99 Oximetry 11/04/19 04:42 Temperature 99.2 F Pulse Rate 95 H Respiratory 24 Rate Blood Pressure 125/84 Blood Pressure [Left] O2 Sat by Pulse 94 Oximetry - Lab 10/31/19 05:32 11/04/19 04:27 Most recent lab results Calcium 9.1 mg/dL (8.4-10.2) 11/04/19 04:27 Phosphorus 3.70 mg/dL (2.5-4.5) 11/03/19 04:25 Magnesium 2.10 mg/dL (1.7-2.3) 10/29/19 06:59 Urine Creatinine 86.8 mg/dL (0.1-20.0) H 10/28/19 14:55 Urine Sodium 42 mmol/L 10/28/19 14:55 Medications & Allergies - Medications Allergies/Adverse Reactions: Allergies No Known Allergies Allergy (Verified 01/05/15 14:31) Home Medications: Home Medications Medication Instructions Recorded Confirmed Last Taken Type hydrALAZINE [Apresoline TAB] 25 mg PO Q8HR #90 tablet 08/25/14 11/01/19 12/08/18 21:00 Rx Pregabalin [Lyrica] 200 mg PO TID 05/29/16 11/01/19 12/08/18 21:00 History Adult Probiotic 1 tab PO DAILY 11/01/19 11/01/19 Unknown History Aspirin BABY CHEW TAB 81 mg PO DAILY 11/01/19 11/01/19 Unknown History Baby Vitamin D3 2,000 units PO DAILY 11/01/19 11/01/19 Unknown History Brimonidine Tartrate 0.2% 1 drop OU QHS 11/01/19 11/01/19 Unknown History Colchicine 0.6 mg PO BID 11/01/19 11/01/19 Unknown History DUONEB *Not for PRN Use* 0.5 - 2.5 mg INHALATION Q6HR PRN 11/01/19 11/01/19 Unknown History Hydrocodone-Acetamin 10-325/15 1 tab PO TID PRN 11/01/19 11/01/19 Unknown History Lipitor 10 mg PO QHS 11/01/19 11/01/19 Unknown History Loperamide 2 mg PO Q24HR PRN 11/01/19 11/01/19 Unknown History Metoprolol 25 mg PO DAILY 11/01/19 11/01/19 Unknown History Robitussin Cough-Chest Dm Liq 15 ml PO BID 11/01/19 11/01/19 Unknown History Sennosides [Senna] 8.6 mg PO Q24HR PRN 11/01/19 11/01/19 Unknown History Verapamil 180 mg PO BID 11/01/19 11/01/19 Unknown History traMADoL 50 mg PO Q6HR PRN 11/01/19 11/01/19 Unknown History Active Medications: Generic Name Dose Route Start Last Admin Trade Name Freq PRN Reason Stop Dose Admin Acetaminophen 650 mg 10/28/19 13:12 10/30/19 21:39 Tylenol PO 650 mg Q4H PRN Administration Pain MILD(1-3)/Fever >100.5/EDUARDO Acetaminophen/Codeine Phosphate 1 tab 10/28/19 13:14 11/03/19 13:09 Tylenol #3 PO 1 tab Q6H PRN Administration Pain, Moderate (4-6) Albuterol 2.5 mg 10/28/19 13:12 Proventil IH Q4HRT PRN Shortness Of Breath Chlorothiazide Sodium 500 mg 11/03/19 14:00 11/03/19 18:45 Diuril IV 500 mg QDAY FAYE Administration Dextrose 50 ml 10/29/19 08:00 10/29/19 12:35 D50w (25gm) Syringe IV 50 ml Q30MIN PRN Administration Hypoglycemia Protocol Dextrose 1,000 mls @ 100 mls/hr 10/31/19 08:00 11/03/19 12:39 D5w IV 75 mls/hr DIRECT FAYE Administration Cefepime HCl 2 gm in 100 mls @ 200 mls/hr 10/31/19 10:00 11/03/19 21:49 Cefepime/Ns 2 Gm/100 Ml IV 200 mls/hr Q12HR FAYE Administration Ondansetron HCl 4 mg 10/28/19 13:12 Zofran IV Q8H PRN Nausea And Vomiting Sodium Chloride 10 ml 10/28/19 22:00 11/03/19 21:49 Sodium Chloride Flush Syringe 10 Ml IV 10 ml BID FAYE Administration Sodium Chloride 10 ml 10/28/19 13:12 Sodium Chloride Flush Syringe 10 Ml IV PRN PRN LINE FLUSH Sterile Water 20 ml 11/03/19 14:00 Water For Inj Sterile (Pf) IV DAILY PRN CHLOROTHIAZIDE RECONSTITUTION
--- NOTE | 2019-11-04 09:41 | Progress Note ---
Assessment and Plan Assessment and plan: --Severe sepsis due to COVID-19 positive bilateral pneumonia. Current Visit: Yes Status: Acute Very poor prognosis s/p empiric IV antibiotic therapy, Covid test positive. Oxygen titrate O2 sats to more than 90%. IV cefepime, hydro-chloroquine and zinc per ID D-dimer, LDH, procalcitonin, ferritin level, --Right upper extremity swelling: Current Visit: Yes Status: Acute Venous Doppler negative for DVT, superficial thrombosis Elevate the limb, Supportive care, will try not to use the limb for IV infusion --Elevated D-dimers; Patient had CT chest on 10/28/2019, bilateral pneumonia --RAFAEL (acute kidney injury) on CKD Current Visit: Yes Status: Acute Due to vasomotor nephropathy, gentle hydration, avoid nephrotoxins. Nephrology following, monitor renal function --Hyponatremia resolved Current Visit: Yes Status: Acute Sodium levels overcorrected/hypernatremia Change IV fluids to D5 W, monitor sodium levels --Acidosis Current Visit: Yes Status: Acute Aggressive IV fluid resuscitation therapy, supportive care, Closely monitor -- Hypokalemia Current Visit: Yes Status: Acute Potassium supplemented, follow potassium levels --Metabolic encephalopathy Current Visit: Yes Status: Acute Suspected secondary to uremia. IV fluid resuscitation therapy Supportive care --sacral decubitus ulcer/stage IV Current Visit: Yes Status: Acute Patient has a chronic sacral stage IV ulcer with mild necrotic area and no purulence, also right plantar wound, both chronic not infected. Wound care on board. Off loading is mainstay therapy. --DVT prophylaxis Current Visit: Yes Status: Acute SCD to bilateral lower extremities while in bed, prophylactic heparin. --Advanced care planning/counseling discussion/full code Current Visit: Yes Status: Acute Patient is full code, Plan of care reviewed with the patient, and his nurse Isolation precautions; contact and droplet isolation inplace History Interval history: Patient seen and examined from a distance Due to shortage of PPE Discussed with laundry equipment operator who has examined the patient in detail This morning. Patient remains critically ill in mild distress Vital signs noted PUI?: Yes COVID19: Positive Hospitalist Physical - Constitutional Vitals: Temp Pulse Resp BP Pulse Ox 99.2 F 95 H 24 125/84 94 11/04/19 04:42 11/04/19 04:42 11/04/19 04:42 11/04/19 04:42 11/04/19 04:42 General appearance: Present: mild distress, well-nourished - EENT Eyes: Present: PERRL, EOM intact - Neck Neck: Present: supple, normal ROM - Respiratory Respiratory effort: normal Respiratory: bilateral: diminished, negative: rales, rhonchi, wheezing - Cardiovascular Rhythm: regular Heart Sounds: Present: S1 & S2 - Extremities Extremities: no ischemia, No edema - Abdominal General gastrointestinal: soft, non-tender, non-distended, normal bowel sounds - Integumentary Integumentary: Present: clear, warm - Psychiatric Psychiatric: appropriate mood/affect, cooperative - Neurologic Neurologic: CNII-XII intact, moves all extremities Results - Labs CBC & Chem 7: 10/31/19 05:32 11/05/19 04:47 Labs: Laboratory Last Values WBC 6.0 K/mm3 (4.5-11.0) 10/31/19 05:32 RBC 4.95 M/mm3 (3.65-5.03) 10/31/19 05:32 Hgb 12.6 gm/dl (11.8-15.2) 10/31/19 05:32 Hct 39.9 % (35.5-45.6) 10/31/19 05:32 MCV 81 fl (84-94) L 10/31/19 05:32 MCH 26 pg (28-32) L 10/31/19 05:32 MCHC 32 % (32-34) 10/31/19 05:32 RDW 20.4 % (13.2-15.2) H 10/31/19 05:32 Plt Count 126 K/mm3 (140-440) L 10/31/19 05:32 Lymph % (Auto) 17.4 % (13.4-35.0) 10/30/19 08:01 [place] % (Auto) 7.9 % (0.0-7.3) H 10/30/19 08:01 Eos % (Auto) 0.1 % (0.0-4.3) 10/30/19 08:01 Baso % (Auto) 0.5 % (0.0-1.8) 10/30/19 08:01 Lymph # 1.1 K/mm3 (1.2-5.4) L 10/30/19 08:01 [place] # 0.5 K/mm3 (0.0-0.8) 10/30/19 08:01 Eos # 0.0 K/mm3 (0.0-0.4) 10/30/19 08:01 Baso # 0.0 K/mm3 (0.0-0.1) 10/30/19 08:01 Add Manual Diff Complete 10/31/19 05:32 Total Counted 100 10/31/19 05:32 Seg Neutrophils % 74.1 % (40.0-70.0) H 10/30/19 08:01 Seg Neuts % (Manual) 80.0 % (40.0-70.0) H 10/31/19 05:32 Band Neutrophils % 0 % 10/31/19 05:32 Lymphocytes % (Manual) 13.0 % (13.4-35.0) L 10/31/19 05:32 Reactive Lymphs % (Man) 0 % 10/31/19 05:32 Monocytes % (Manual) 6.0 % (0.0-7.3) 10/31/19 05:32 Eosinophils % (Manual) 1.0 % (0.0-4.3) 10/31/19 05:32 Basophils % (Manual) 0 % (0.0-1.8) 10/31/19 05:32 Metamyelocytes % 0 % 10/31/19 05:32 Myelocytes % 0 % 10/31/19 05:32 Promyelocytes % 0 % 10/31/19 05:32 Blast Cells % 0 % 10/31/19 05:32 Nucleated RBC % 2.0 % (0.0-0.9) H 10/31/19 05:32 Seg Neutrophils # 4.9 K/mm3 (1.8-7.7) 10/30/19 08:01 Seg Neutrophils # Man 4.8 K/mm3 (1.8-7.7) 10/31/19 05:32 Band Neutrophils # 0.0 K/mm3 10/31/19 05:32 Lymphocytes # (Manual) 0.8 K/mm3 (1.2-5.4) L 10/31/19 05:32 Abs React Lymphs (Man) 0.0 K/mm3 10/31/19 05:32 Monocytes # (Manual) 0.4 K/mm3 (0.0-0.8) 10/31/19 05:32 Eosinophils # (Manual) 0.1 K/mm3 (0.0-0.4) 10/31/19 05:32 Basophils # (Manual) 0.0 K/mm3 (0.0-0.1) 10/31/19 05:32 Metamyelocytes # 0.0 K/mm3 10/31/19 05:32 Myelocytes # 0.0 K/mm3 10/31/19 05:32 Promyelocytes # 0.0 K/mm3 10/31/19 05:32 Blast Cells # 0.0 K/mm3 10/31/19 05:32 WBC Morphology Not Reportable 10/31/19 05:32 Hypersegmented Neuts Not Reportable 10/31/19 05:32 Hyposegmented Neuts Not Reportable 10/31/19 05:32 Hypogranular Neuts Not Reportable 10/31/19 05:32 Smudge Cells Not Reportable 10/31/19 05:32 Toxic Granulation Not Reportable 10/31/19 05:32 Toxic Vacuolation Not Reportable 10/31/19 05:32 Dohle Bodies Not Reportable 10/31/19 05:32 Pelger-Huet Anomaly Not Reportable 10/31/19 05:32 [place] Rods Not Reportable 10/31/19 05:32 Platelet Estimate Consistent w auto 10/31/19 05:32 Clumped Platelets Not Reportable 10/31/19 05:32 Plt Clumps, EDTA Not Reportable 10/31/19 05:32 Large Platelets Not Reportable 10/31/19 05:32 Giant Platelets Not Reportable 10/31/19 05:32 Platelet Satelliting Not Reportable 10/31/19 05:32 Plt Morphology Comment Not Reportable 10/31/19 05:32 RBC Morphology Not Reportable 10/31/19 05:32 Dimorphic RBCs Not Reportable 10/31/19 05:32 Polychromasia Not Reportable 10/31/19 05:32 Hypochromasia Few 10/31/19 05:32 Poikilocytosis Not Reportable 10/31/19 05:32 Anisocytosis 1+ 10/31/19 05:32 Microcytosis Not Reportable 10/31/19 05:32 Macrocytosis Not Reportable 10/31/19 05:32 Spherocytes Not Reportable 10/31/19 05:32 Pappenheimer Bodies Not Reportable 10/31/19 05:32 Sickle Cells Not Reportable 10/31/19 05:32 Target Cells Not Reportable 10/31/19 05:32 Tear Drop Cells Not Reportable 10/31/19 05:32 Ovalocytes Not Reportable 10/31/19 05:32 Helmet Cells Not Reportable 10/31/19 05:32 Ross-Prien Bodies Not Reportable 10/31/19 05:32 Ailey Rings Not Reportable 10/31/19 05:32 Aric Cells Not Reportable 10/31/19 05:32 Bite Cells Not Reportable 10/31/19 05:32 Crenated Cell Not Reportable 10/31/19 05:32 Elliptocytes Not Reportable 10/31/19 05:32 Acanthocytes (Spur) Not Reportable 10/31/19 05:32 Rouleaux Not Reportable 10/31/19 05:32 Hemoglobin C Crystals Not Reportable 10/31/19 05:32 Schistocytes Not Reportable 10/31/19 05:32 Malaria parasites Not Reportable 10/31/19 05:32 Aristides Bodies Not Reportable 10/31/19 05:32 Hem Pathologist Commnt No 10/31/19 05:32 D-Dimer 1480.65 ng/mlDDU (0-234) H 11/03/19 04:25 Sodium 159 mmol/L (137-145) H 11/04/19 04:27 Potassium 3.8 mmol/L (3.6-5.0) 11/04/19 04:27 Chloride 131.5 mmol/L (98-107) H 11/04/19 04:27 Carbon Dioxide 17 mmol/L (22-30) L 11/04/19 04:27 Anion Gap 14 mmol/L 11/04/19 04:27 BUN 72 mg/dL (9-20) H 11/04/19 04:27 Creatinine 2.0 mg/dL (0.8-1.5) H 11/04/19 04:27 Estimated GFR 42 ml/min 11/04/19 04:27 BUN/Creatinine Ratio 36 % 11/04/19 04:27 Glucose 115 mg/dL (75-100) H 11/04/19 04:27 POC Glucose 100 (70-105) 11/04/19 08:20 Lactic Acid 1.00 mmol/L (0.7-2.0) 10/28/19 15:25 Calcium 9.1 mg/dL (8.4-10.2) 11/04/19 04:27 Phosphorus 3.70 mg/dL (2.5-4.5) 11/03/19 04:25 Magnesium 2.10 mg/dL (1.7-2.3) 10/29/19 06:59 Ferritin 940.6 ng/mL (13.0-400.0) H 11/03/19 04:25 Total Bilirubin 0.40 mg/dL (0.1-1.2) 10/31/19 05:32 Direct Bilirubin < 0.2 mg/dL (0-0.2) 10/28/19 11:22 Indirect Bilirubin 0.2 mg/dL 10/28/19 11:22 AST 267 units/L (5-40) H 10/31/19 05:32 ALT 77 units/L (7-56) H 10/31/19 05:32 Alkaline Phosphatase 82 units/L (35-129) 10/31/19 05:32 Lactate Dehydrogenase 534 units/L (91-180) H 11/03/19 04:25 C-Reactive Protein 11.00 mg/dL (0.00-1.30) H 11/03/19 04:25 Total Protein 7.3 g/dL (6.3-8.2) D 10/31/19 05:32 Albumin 2.0 g/dL (3.9-5) L 10/31/19 05:32 Albumin/Globulin Ratio 0.4 % 10/31/19 05:32 Lipase 89 units/L (13-60) H 10/28/19 11:22 Procalcitonin 91.05 ng/mL (<0.15) 10/28/19 13:31 PTH Intact 120.0 pg/mL (15-65) H 10/29/19 06:59 Urine Color Yellow (Yellow) 10/29/19 00:47 Urine Turbidity Cloudy (Clear) 10/29/19 00:47 Urine pH 6.0 (5.0-7.0) 10/29/19 00:47 Ur Specific [place] 1.010 (1.003-1.030) 10/29/19 00:47 Urine Protein 30 mg/dl mg/dL (Negative) 10/29/19 00:47 Urine Glucose (UA) Neg mg/dL (Negative) 10/29/19 00:47 Urine Ketones Neg mg/dL (Negative) 10/29/19 00:47 Urine Blood Lg (Negative) 10/29/19 00:47 Urine Nitrite Pos (Negative) 10/29/19 00:47 Urine Bilirubin Neg (Negative) 10/29/19 00:47 Urine Urobilinogen < 2.0 mg/dL (<2.0) 10/29/19 00:47 Ur Leukocyte Esterase Lg (Negative) 10/29/19 00:47 Urine WBC (Auto) > 182.0 /HPF (0.0-6.0) H 10/29/19 00:47 Urine RBC (Auto) 58.0 /HPF (0.0-6.0) 10/29/19 00:47 U Epithel Cells (Auto) < 1.0 /HPF (0-13.0) 10/29/19 00:47 Urine Bacteria (Auto) 4+ /HPF (Negative) 10/29/19 00:47 Urine WBC Clumps 2+ /HPF 10/28/19 14:55 Urine Mucus Few /HPF 10/28/19 14:55 Urine Yeast (Budding) 2+ /HPF 10/28/19 14:55 Urine Creatinine 86.8 mg/dL (0.1-20.0) H 10/28/19 14:55 Urine Sodium 42 mmol/L 10/28/19 14:55 Influenza A (Rapid) Negative (Negative) 11/01/19 15:30 Influenza A (RT-PCR) Negative (Negative) 11/01/19 15:30 Influenza B (Rapid) Negative (Negative) 11/01/19 15:30 Influenza B (RT-PCR) Negative (Negative) 11/01/19 15:30 Miscellaneous Test See scanned result 11/01/19 Unknown Microbiology: Microbiology 11/01/19 22:48 Urine,Clean Catch Urine Culture - Preliminary NO GROWTH AFTER 24 HOURS [place]/IV: Voiding Method Indwelling Catheter IV Catheter Type [Left Wrist] Peripheral IV IV Catheter Type [Right Hand] Peripheral IV Active Medications - Current Medications Current Medications: Generic Name Dose Route Start Last Admin Trade Name Freq PRN Reason Stop Dose Admin Acetaminophen 650 mg 10/28/19 13:12 10/30/19 21:39 Tylenol PO 650 mg Q4H PRN Administration Pain MILD(1-3)/Fever >100.5/EDUARDO Acetaminophen/Codeine Phosphate 1 tab 10/28/19 13:14 11/03/19 13:09 Tylenol #3 PO 1 tab Q6H PRN Administration Pain, Moderate (4-6) Albuterol 2.5 mg 10/28/19 13:12 Proventil IH Q4HRT PRN Shortness Of Breath Chlorothiazide Sodium 500 mg 11/03/19 14:00 11/03/19 18:45 Diuril IV 500 mg QDAY FAYE Administration Desmopressin Acetate 0.1 mg 11/04/19 10:00 Ddavp PO BID FAYE Dextrose 50 ml 10/29/19 08:00 10/29/19 12:35 D50w (25gm) Syringe IV 50 ml Q30MIN PRN Administration Hypoglycemia Protocol Dextrose 1,000 mls @ 100 mls/hr 10/31/19 08:00 11/03/19 12:39 D5w IV 75 mls/hr DIRECT FAYE Administration Cefepime HCl 2 gm in 100 mls @ 200 mls/hr 10/31/19 10:00 11/03/19 21:49 Cefepime/Ns 2 Gm/100 Ml IV 200 mls/hr Q12HR FAYE Administration Ondansetron HCl 4 mg 10/28/19 13:12 Zofran IV Q8H PRN Nausea And Vomiting Sodium Chloride 10 ml 10/28/19 22:00 11/03/19 21:49 Sodium Chloride Flush Syringe 10 Ml IV 10 ml BID FAYE Administration Sodium Chloride 10 ml 10/28/19 13:12 Sodium Chloride Flush Syringe 10 Ml IV PRN PRN LINE FLUSH Sterile Water 20 ml 11/03/19 14:00 Water For Inj Sterile (Pf) IV DAILY PRN CHLOROTHIAZIDE RECONSTITUTION Nutrition/Malnutrition Assess - Dietary Evaluation Nutrition/Malnutrition Findings: Nutrition Notes Start: 10/29/19 08:36 Freq: Status: Active Protocol: Document 11/03/19 11:28 LM (Rec: 11/03/19 11:45 LM [email or web address]) Nutrition Notes Initial or Follow up Reassessment Current Diagnosis Acute Kidney Injury,Decubitus( Pressure Ulcer),Diabetes, Hypertension Other Pertinent Diagnosis Sacral and heel wound, pneu Current Diet Cardiac Labs/Tests Na 154 BUN 70 Cr 2.0 Pertinent Medications Reviewed Height 6 ft 2 in Weight 88.5 kg [place] Body Weight (kg) 86.36 BMI 25.0 Weight Status Overweight Subjective/Other Information Per RN pt is not eating well ( 25% of breakfast) but drink Ensure High Protein 3x/day. Percent of energy/protein needs met: 47%/61% Burn Absent Trauma Absent Current % PO Poor (25-49%) Minimum of two criteria No Fluid Accumulation Moderate to Severe (severe) #2 Nutrition Diagnosis Inadequate oral intake Etiology COVID-19 infection, chronic illness As Evidenced by Signs and Symptoms pt with poor intakes #1 Nutrition Diagnosis Increased nutrient needs ( specify in comment below) Diagnosis Progress(for reassessment Continues documentation) Is patient on ventilator? No Is Patient Ambulatory and/or Out of Bed No REE-([place]-confined to bed) [phone] Calculation Used for Recommendations [facility] Additional Notes Protein needs are 113-136g (1. 2-1.5g/kg) Fluid needs are 1ml/kcal Nutrition Intervention Change Diet Order: Cardiac Add Supplement/Snack (indicate name/kcal Ensure High protein TID /protein ) Provides kCal: 480 Provides Protein (gm) 48 Goal #1 Meet at least 80% of kcal and protein needs Goal #2 Wound healing Anticipated Discharge Needs: Cardiac diet with ONS BID Follow-Up By: 11/14/19 Additional Comments F/U for PO/ONS intakes
[2019-11-04] MEDS: CEFEPIME/NS 2 GM/100 ML 2 GM/100 ML BAG IV SCH ×2 (10:46→22:24)
[2019-11-04] MEDS: CHLOROTHIAZIDE 500 MG VIAL IV SCH (10:47)
[2019-11-04] MEDS: DESMOPRESSIN 0.1 MG TAB PO SCH ×2 (12:00→22:25)
--- NOTE | 2019-11-04 15:14 | Progress Note ---
Assessment and Plan Cultures: Blood cultures 10/28/2019 no growth today. Urine cultures 10/28/2019 no growth today. Assessment: 51 years old male with history of chronic kidney disease, diabetes, previous diabetic foot infection status post left BKA, hypertension, resident of [facility], admitted on 10/28/2019 due to altered mental status with confusion and lethargy, generalized weakness, dry cough, diarrhea for a week: #Severe sepsis with MODS: fever resolved, likely due to bilateral pneumonia +/- UTI. Blood culture so far negative. Very high procalcitonin of unclear significance due to RAFAEL. #COVID pneumonia: CT of the chest show patchy groundglass opacities bilaterally. COVID test POSITIVE. Initial Inflammatory markers highly elevated -Markers DOWN #Complicated UTI with severe bilateral hydro: s/p duncan #RAFAEL on CKD: Urinalysis showed more than 180 white blood cells with large leukocyte esterase. CT of the abdomen show severe hydroureteronephrosis with distended bladder. #Acute encephalopathy: some better #Eleveted LFTs: from sepsis/ COVID. ALT 160. AST 233. #Thrombocytopenia: from sepsis, not better #Diarrhea: likely from COVID #Acute hypoxemia: on [place] O2 #Elevated LFTs: from COVID or sepsis #RAFAEL: renally adjust abx - better #Right arm edema: no DVT, superf thrombophlebitis Recommendations: Continue Cefepime renally adjusted total 5 days Continue hydroxychloroquine (total 5 days) with zinc Obtain IL-6 - pending Renal on board Continue COVID isolation precautions per [facility] protocol High risk mortality. Dr Giordano back on Thursday Will follow Jenni Friend MD Infectious Diseases [facility] ([facility]) M [phone] O [phone] Subjective Date of service: 11/04/19 Principal diagnosis: ,+RAFAEL/CKD, bilateral pneumonia Interval history: No acute events sleepy no fever PUI?: Yes COVID19: Positive Objective - Exam Narrative Exam: Exam performed in conjunction with nursing staff due to lack of PPE General appearance: alert confused Eyes: limited due to lack of PPE HENT: Atraumatic; oropharynx limited due to lack of PPE Lungs: diminished BS bilateral CV: RRR Abdomen: limited due to lack of PPE Extremities: +Right arm edema Skin: No rash Psych:no agitated Neuro: alert confused - Constitutional Vitals: Vital Signs Temp Pulse Resp BP Pulse Ox 98.3 F 99 H 19 132/70 94 11/04/19 12:44 11/04/19 12:44 11/04/19 12:44 11/04/19 12:44 11/04/19 12:44 Temperature -Last 24 Hours Temperature 98.3 F Temperature 99.2 F Temperature 98.2 F Temperature 98.2 F Temperature 97.2 F - Labs CBC & Chem 7: 10/31/19 05:32 11/04/19 04:27 Labs: Abnormal lab results 11/03/19 11/03/19 11/04/19 Range/Units 16:31 21:21 04:27 Sodium 159 H (137-145) mmol/L Chloride 131.5 H (98-107) mmol/L Carbon Dioxide 17 L (22-30) mmol/L BUN 72 H (9-20) mg/dL Creatinine 2.0 H (0.8-1.5) mg/dL Glucose 115 H (75-100) mg/dL POC Glucose 141 H 117 H (70-105)
[2019-11-05] MEDS: DEXTROSE 5% IN WATER 1,000 ML IV SCH ×2 (00:21→14:05)
--- NOTE | 2019-11-05 08:09 | Progress Note ---
Assessment and Plan 1. Acute kidney injury: Likely vasomotor RAFAEL superimposed on CKD stage 3 in the setting of volume depletion, hypotension, SIRS/sepsis and obstructive uropathy. CT abdomen showed bilateral hydronephrosis. Creatinine in November 2018 was 2.1 which is likely his baseline. Continue IV fluids. Creatinine leveled off. Monitor renal function. Renal prognosis is guarded. Avoid nephrotoxic agents. Meds dosage based on GFR. 2. FEN: Hypernatremia, increased to 159 today, continue D5W and started on DDAVP, monitor. As Sodium level increasing also started on DDAVP. Hyperkalemia, improved, monitor. Metabolic acidosis, monitor. Monitor lytes and volume status. 3. Bilateral hydronephrosis: Secondary to bladder retention. S/p duncan catheter. 4. Bilateral pneumonia: Pneumonia protocol. Supplemental oxygen, nebulizer therapy and IV antibiotic therapy. Follow blood culture. COVID positive. 5. SIRS / Sepsis: Likely 2/2 PNA. 6. Suspected COVID-19 virus infection. 7. Metabolic encephalopathy: Toxic metabolic, POA. 8. R foot wound, POA. - Subjective: Patient was seen and examined at the bedside. No acute events reported. - General Appearance General appearance: well-developed, appears stated age, not in distress HEENT: ATNC, YRN Neck: neck supple, trachea midline Respiratory: Clear to Ascultation, poor effort Heart: regular, S1S2, no murmurs Gastrointestinal: soft, normoactive bowel sounds, not tender Integumentary: ulcer R foot sole Neurologic: alert, able to tell his name, able to move extremities, confused Ext: no edema, R flat foot, L BKA : Duncan catheter Subjective Date of service: 11/05/19 Principal diagnosis: ,+RAFAEL/CKD, bilateral pneumonia PUI?: Yes COVID19: Positive Objective - Vital Signs Vital signs: Vital Signs - 12hr 11/04/19 11/04/19 11/05/19 21:02 21:18 04:22 Temperature 97.7 F 98.3 F Pulse Rate 96 H 97 H Respiratory 24 24 Rate Blood Pressure 114/76 148/90 O2 Sat by Pulse 91 96 94 Oximetry - Lab 10/31/19 05:32 11/05/19 04:47 Most recent lab results Calcium 9.0 mg/dL (8.4-10.2) 11/05/19 04:47 Phosphorus 3.70 mg/dL (2.5-4.5) 11/03/19 04:25 Magnesium 2.10 mg/dL (1.7-2.3) 10/29/19 06:59 Urine Creatinine 86.8 mg/dL (0.1-20.0) H 10/28/19 14:55 Urine Sodium 42 mmol/L 10/28/19 14:55 Medications & Allergies - Medications Allergies/Adverse Reactions: Allergies No Known Allergies Allergy (Verified 01/05/15 14:31) Home Medications: Home Medications Medication Instructions Recorded Confirmed Last Taken Type hydrALAZINE [Apresoline TAB] 25 mg PO Q8HR #90 tablet 08/25/14 11/01/19 12/08/18 21:00 Rx Pregabalin [Lyrica] 200 mg PO TID 05/29/16 11/01/19 12/08/18 21:00 History Adult Probiotic 1 tab PO DAILY 11/01/19 11/01/19 Unknown History Aspirin BABY CHEW TAB 81 mg PO DAILY 11/01/19 11/01/19 Unknown History Baby Vitamin D3 2,000 units PO DAILY 11/01/19 11/01/19 Unknown History Brimonidine Tartrate 0.2% 1 drop OU QHS 11/01/19 11/01/19 Unknown History Colchicine 0.6 mg PO BID 11/01/19 11/01/19 Unknown History DUONEB *Not for PRN Use* 0.5 - 2.5 mg INHALATION Q6HR PRN 11/01/19 11/01/19 Un known History Hydrocodone-Acetamin 10-325/15 1 tab PO TID PRN 11/01/19 11/01/19 Unknown History Lipitor 10 mg PO QHS 11/01/19 11/01/19 Unknown History Loperamide 2 mg PO Q24HR PRN 11/01/19 11/01/19 Unknown History Metoprolol 25 mg PO DAILY 11/01/19 11/01/19 Unknown History Robitussin Cough-Chest Dm Liq 15 ml PO BID 11/01/19 11/01/19 Unknown History Sennosides [Senna] 8.6 mg PO Q24HR PRN 11/01/19 11/01/19 Unknown History Verapamil 180 mg PO BID 11/01/19 11/01/19 Unknown History traMADoL 50 mg PO Q6HR PRN 11/01/19 11/01/19 Unknown History Active Medications: Generic Name Dose Route Start Last Admin Trade Name Joaquina PRN Reason Stop Dose Admin Acetaminophen 650 mg 10/28/19 13:12 10/30/19 21:39 Tylenol PO 650 mg Q4H PRN Administration Pain MILD(1-3)/Fever >100.5/EDUARDO Acetaminophen/Codeine Phosphate 1 tab 10/28/19 13:14 11/03/19 13:09 Tylenol #3 PO 1 tab Q6H PRN Administration Pain, Moderate (4-6) Albuterol 2.5 mg 10/28/19 13:12 Proventil IH Q4HRT PRN Shortness Of Breath Chlorothiazide Sodium 500 mg 11/03/19 14:00 11/04/19 10:47 Diuril IV 500 mg QDAY FAYE Administration Desmopressin Acetate 0.1 mg 11/04/19 10:00 11/04/19 22:25 Ddavp PO 0.1 mg BID FAYE Administration Dextrose 50 ml 10/29/19 08:00 10/29/19 12:35 D50w (25gm) Syringe IV 50 ml Q30MIN PRN Administration Hypoglycemia Protocol Dextrose 1,000 mls @ 100 mls/hr 10/31/19 08:00 11/05/19 00:21 D5w IV 75 mls/hr DIRECT FAYE Administration Ondansetron HCl 4 mg 10/28/19 13:12 Zofran IV Q8H PRN Nausea And Vomiting Sodium Chloride 10 ml 10/28/19 22:00 11/04/19 22:25 Sodium Chloride Flush Syringe 10 Ml IV 10 ml BID FAYE Administration Sodium Chloride 10 ml 10/28/19 13:12 Sodium Chloride Flush Syringe 10 Ml IV PRN PRN LINE FLUSH Sterile Water 20 ml 11/03/19 14:00 Water For Inj Sterile (Pf) IV DAILY PRN CHLOROTHIAZIDE RECONSTITUTION
[2019-11-05] MEDS: DESMOPRESSIN 0.1 MG TAB PO SCH ×2 (10:15→21:46)
--- NOTE | 2019-11-05 12:42 | Progress Note ---
Assessment and Plan Assessment and plan: --Severe sepsis due to COVID-19 positive bilateral pneumonia. Current Visit: Yes Status: Acute Very poor prognosis s/p empiric IV antibiotic therapy, Covid test positive. Oxygen titrate O2 sats to more than 90%. IV cefepime, hydro-chloroquine and zinc per ID D-dimer, LDH, procalcitonin, ferritin level, --Right upper extremity swelling: Current Visit: Yes Status: Acute Venous Doppler negative for DVT, superficial thrombosis Elevate the limb, Supportive care, will try not to use the limb for IV infusion --Elevated D-dimers; Patient had CT chest on 10/28/2019, bilateral pneumonia --RAFAEL (acute kidney injury) on CKD Current Visit: Yes Status: Acute Due to vasomotor nephropathy, gentle hydration, avoid nephrotoxins. Nephrology following, monitor renal function --Hyponatremia resolved Current Visit: Yes Status: Acute Sodium levels overcorrected/hypernatremia Change IV fluids to D5 W, monitor sodium levels --Acidosis Current Visit: Yes Status: Acute Aggressive IV fluid resuscitation therapy, supportive care, Closely monitor -- Hypokalemia Current Visit: Yes Status: Acute Potassium supplemented, follow potassium levels --Metabolic encephalopathy Current Visit: Yes Status: Acute Suspected secondary to uremia. IV fluid resuscitation therapy Supportive care --sacral decubitus ulcer/stage IV Current Visit: Yes Status: Acute Patient has a chronic sacral stage IV ulcer with mild necrotic area and no purulence, also right plantar wound, both chronic not infected. Wound care on board. Off loading is mainstay therapy. --DVT prophylaxis Current Visit: Yes Status: Acute SCD to bilateral lower extremities while in bed, prophylactic heparin. --Advanced care planning/counseling discussion/full code Current Visit: Yes Status: Acute Patient is full code, Plan of care reviewed with the patient, and his nurse Isolation precautions; contact and droplet isolation inplace History Interval history: Patient remains critically ill.Covid positive On droplet and contact isolation Hypernatremia, on free water and D5 W Vital signs reviewed PUI?: Yes COVID19: Positive Hospitalist Physical - Physical exam Narrative exam: Limited exam due to shortage of PPE In conjunction with the nurse and her findings - Constitutional Vitals: Temp Pulse Resp BP Pulse Ox 100.9 F H 110 H 20 132/82 95 11/05/19 11:10 11/05/19 11:10 11/05/19 11:10 11/05/19 11:10 11/05/19 11:10 General appearance: Present: mild distress, well-nourished - EENT ENT: other (Not done due to shortage of PPE) - Neck Neck: Present: other (Shortage of PPE) - Respiratory Respiratory effort: other (Shortage of PPE) - Extremities Extremity abnormal: other (Shortage of PPE) - Abdominal General gastrointestinal: other (Shortage of PPE) - Psychiatric Psychiatric: other (Shortage of PPE) - Neurologic Neurologic: other (Not done) Results - Labs CBC & Chem 7: 10/31/19 05:32 11/05/19 04:47 Labs: Laboratory Last Values WBC 6.0 K/mm3 (4.5-11.0) 10/31/19 05:32 RBC 4.95 M/mm3 (3.65-5.03) 10/31/19 05:32 Hgb 12.6 gm/dl (11.8-15.2) 10/31/19 05:32 Hct 39.9 % (35.5-45.6) 10/31/19 05:32 MCV 81 fl (84-94) L 10/31/19 05:32 MCH 26 pg (28-32) L 10/31/19 05:32 MCHC 32 % (32-34) 10/31/19 05:32 RDW 20.4 % (13.2-15.2) H 10/31/19 05:32 Plt Count 126 K/mm3 (140-440) L 10/31/19 05:32 Lymph % (Auto) 17.4 % (13.4-35.0) 10/30/19 08:01 [place] % (Auto) 7.9 % (0.0-7.3) H 10/30/19 08:01 Eos % (Auto) 0.1 % (0.0-4.3) 10/30/19 08:01 Baso % (Auto) 0.5 % (0.0-1.8) 10/30/19 08:01 Lymph # 1.1 K/mm3 (1.2-5.4) L 10/30/19 08:01 [place] # 0.5 K/mm3 (0.0-0.8) 10/30/19 08:01 Eos # 0.0 K/mm3 (0.0-0.4) 10/30/19 08:01 Baso # 0.0 K/mm3 (0.0-0.1) 10/30/19 08:01 Add Manual Diff Complete 10/31/19 05:32 Total Counted 100 10/31/19 05:32 Seg Neutrophils % 74.1 % (40.0-70.0) H 10/30/19 08:01 Seg Neuts % (Manual) 80.0 % (40.0-70.0) H 10/31/19 05:32 Band Neutrophils % 0 % 10/31/19 05:32 Lymphocytes % (Manual) 13.0 % (13.4-35.0) L 10/31/19 05:32 Reactive Lymphs % (Man) 0 % 10/31/19 05:32 Monocytes % (Manual) 6.0 % (0.0-7.3) 10/31/19 05:32 Eosinophils % (Manual) 1.0 % (0.0-4.3) 10/31/19 05:32 Basophils % (Manual) 0 % (0.0-1.8) 10/31/19 05:32 Metamyelocytes % 0 % 10/31/19 05:32 Myelocytes % 0 % 10/31/19 05:32 Promyelocytes % 0 % 10/31/19 05:32 Blast Cells % 0 % 10/31/19 05:32 Nucleated RBC % 2.0 % (0.0-0.9) H 10/31/19 05:32 Seg Neutrophils # 4.9 K/mm3 (1.8-7.7) 10/30/19 08:01 Seg Neutrophils # Man 4.8 K/mm3 (1.8-7.7) 10/31/19 05:32 Band Neutrophils # 0.0 K/mm3 10/31/19 05:32 Lymphocytes # (Manual) 0.8 K/mm3 (1.2-5.4) L 10/31/19 05:32 Abs React Lymphs (Man) 0.0 K/mm3 10/31/19 05:32 Monocytes # (Manual) 0.4 K/mm3 (0.0-0.8) 10/31/19 05:32 Eosinophils # (Manual) 0.1 K/mm3 (0.0-0.4) 10/31/19 05:32 Basophils # (Manual) 0.0 K/mm3 (0.0-0.1) 10/31/19 05:32 Metamyelocytes # 0.0 K/mm3 10/31/19 05:32 Myelocytes # 0.0 K/mm3 10/31/19 05:32 Promyelocytes # 0.0 K/mm3 10/31/19 05:32 Blast Cells # 0.0 K/mm3 10/31/19 05:32 WBC Morphology Not Reportable 10/31/19 05:32 Hypersegmented Neuts Not Reportable 10/31/19 05:32 Hyposegmented Neuts Not Reportable 10/31/19 05:32 Hypogranular Neuts Not Reportable 10/31/19 05:32 Smudge Cells Not Reportable 10/31/19 05:32 Toxic Granulation Not Reportable 10/31/19 05:32 Toxic Vacuolation Not Reportable 10/31/19 05:32 Dohle Bodies Not Reportable 10/31/19 05:32 Pelger-Huet Anomaly Not Reportable 10/31/19 05:32 [place] Rods Not Reportable 10/31/19 05:32 Platelet Estimate Consistent w auto 10/31/19 05:32 Clumped Platelets Not Reportable 10/31/19 05:32 Plt Clumps, EDTA Not Reportable 10/31/19 05:32 Large Platelets Not Reportable 10/31/19 05:32 Giant Platelets Not Reportable 10/31/19 05:32 Platelet Satelliting Not Reportable 10/31/19 05:32 Plt Morphology Comment Not Reportable 10/31/19 05:32 RBC Morphology Not Reportable 10/31/19 05:32 Dimorphic RBCs Not Reportable 10/31/19 05:32 Polychromasia Not Reportable 10/31/19 05:32 Hypochromasia Few 10/31/19 05:32 Poikilocytosis Not Reportable 10/31/19 05:32 Anisocytosis 1+ 10/31/19 05:32 Microcytosis Not Reportable 10/31/19 05:32 Macrocytosis Not Reportable 10/31/19 05:32 Spherocytes Not Reportable 10/31/19 05:32 Pappenheimer Bodies Not Reportable 10/31/19 05:32 Sickle Cells Not Reportable 10/31/19 05:32 Target Cells Not Reportable 10/31/19 05:32 Tear Drop Cells Not Reportable 10/31/19 05:32 Ovalocytes Not Reportable 10/31/19 05:32 Helmet Cells Not Reportable 10/31/19 05:32 Ross-Heeney Bodies Not Reportable 10/31/19 05:32 [place] Rings Not Reportable 10/31/19 05:32 Aric Cells Not Reportable 10/31/19 05:32 Bite Cells Not Reportable 10/31/19 05:32 Crenated Cell Not Reportable 10/31/19 05:32 Elliptocytes Not Reportable 10/31/19 05:32 Acanthocytes (Spur) Not Reportable 10/31/19 05:32 Rouleaux Not Reportable 10/31/19 05:32 Hemoglobin C Crystals Not Reportable 10/31/19 05:32 Schistocytes Not Reportable 10/31/19 05:32 Malaria parasites Not Reportable 10/31/19 05:32 Aristides Bodies Not Reportable 10/31/19 05:32 Hem Pathologist Commnt No 10/31/19 05:32 D-Dimer 1502.15 ng/mlDDU (0-234) H 11/05/19 04:47 Sodium 160 mmol/L (137-145) H 11/05/19 04:47 Potassium 3.9 mmol/L (3.6-5.0) 11/05/19 04:47 Chloride 131.5 mmol/L (98-107) H 11/05/19 04:47 Carbon Dioxide 18 mmol/L (22-30) L 11/05/19 04:47 Anion Gap 15 mmol/L 11/05/19 04:47 BUN 82 mg/dL (9-20) H 11/05/19 04:47 Creatinine 2.5 mg/dL (0.8-1.5) H 11/05/19 04:47 Estimated GFR 32 ml/min 11/05/19 04:47 BUN/Creatinine Ratio 33 % 11/05/19 04:47 Glucose 155 mg/dL (75-100) H 11/05/19 04:47 POC Glucose 196 (70-105) H 11/04/19 21:32 Lactic Acid 1.00 mmol/L (0.7-2.0) 10/28/19 15:25 Calcium 9.0 mg/dL (8.4-10.2) 11/05/19 04:47 Phosphorus 3.70 mg/dL (2.5-4.5) 11/03/19 04:25 Magnesium 2.10 mg/dL (1.7-2.3) 10/29/19 06:59 Ferritin 793.2 ng/mL (13.0-400.0) H 11/05/19 04:47 Total Bilirubin 0.40 mg/dL (0.1-1.2) 10/31/19 05:32 Direct Bilirubin < 0.2 mg/dL (0-0.2) 10/28/19 11:22 Indirect Bilirubin 0.2 mg/dL 10/28/19 11:22 AST 267 units/L (5-40) H 10/31/19 05:32 ALT 77 units/L (7-56) H 10/31/19 05:32 Alkaline Phosphatase 82 units/L (35-129) 10/31/19 05:32 Lactate Dehydrogenase 447 units/L (91-180) H 11/05/19 04:47 C-Reactive Protein 18.00 mg/dL (0.00-1.30) H 11/05/19 04:47 Total Protein 7.3 g/dL (6.3-8.2) D 10/31/19 05:32 Albumin 2.0 g/dL (3.9-5) L 10/31/19 05:32 Albumin/Globulin Ratio 0.4 % 10/31/19 05:32 Lipase 89 units/L (13-60) H 10/28/19 11:22 Procalcitonin 91.05 ng/mL (<0.15) 10/28/19 13:31 PTH Intact 120.0 pg/mL (15-65) H 10/29/19 06:59 Urine Color Yellow (Yellow) 10/29/19 00:47 Urine Turbidity Cloudy (Clear) 10/29/19 00:47 Urine pH 6.0 (5.0-7.0) 10/29/19 00:47 Ur Specific [place] 1.010 (1.003-1.030) 10/29/19 00:47 Urine Protein 30 mg/dl mg/dL (Negative) 10/29/19 00:47 Urine Glucose (UA) Neg mg/dL (Negative) 10/29/19 00:47 Urine Ketones Neg mg/dL (Negative) 10/29/19 00:47 Urine Blood Lg (Negative) 10/29/19 00:47 Urine Nitrite Pos (Negative) 10/29/19 00:47 Urine Bilirubin Neg (Negative) 10/29/19 00:47 Urine Urobilinogen < 2.0 mg/dL (<2.0) 10/29/19 00:47 Ur Leukocyte Esterase Lg (Negative) 10/29/19 00:47 Urine WBC (Auto) > 182.0 /HPF (0.0-6.0) H 10/29/19 00:47 Urine RBC (Auto) 58.0 /HPF (0.0-6.0) 10/29/19 00:47 U Epithel Cells (Auto) < 1.0 /HPF (0-13.0) 10/29/19 00:47 Urine Bacteria (Auto) 4+ /HPF (Negative) 10/29/19 00:47 Urine WBC Clumps 2+ /HPF 10/28/19 14:55 Urine Mucus Few /HPF 10/28/19 14:55 Urine Yeast (Budding) 2+ /HPF 10/28/19 14:55 Urine Osmolality 364 Mosm/kg 11/04/19 21:10 Urine Creatinine 86.8 mg/dL (0.1-20.0) H 10/28/19 14:55 Urine Sodium 42 mmol/L 10/28/19 14:55 Influenza A (Rapid) Negative (Negative) 11/01/19 15:30 Influenza A (RT-PCR) Negative (Negative) 11/01/19 15:30 Influenza B (Rapid) Negative (Negative) 11/01/19 15:30 Influenza B (RT-PCR) Negative (Negative) 11/01/19 15:30 Miscellaneous Test See scanned result 11/01/19 Unknown Microbiology: Microbiology 11/01/19 22:48 Urine,Clean Catch Urine Culture - Final NO GROWTH AFTER 48 HOURS [place]/IV: Voiding Method Indwelling Catheter IV Catheter Type [Right INT / Saline Lock Forearm] IV Catheter Type [Left Wrist] Peripheral IV IV Catheter Type [Right Hand] Peripheral IV Active Medications - Current Medications Current Medications: Generic Name Dose Route Start Last Admin Trade Name Freq PRN Reason Stop Dose Admin Acetaminophen 650 mg 10/28/19 13:12 10/30/19 21:39 Tylenol PO 650 mg Q4H PRN Administration Pain MILD(1-3)/Fever >100.5/EDUARDO Acetaminophen/Codeine Phosphate 1 tab 10/28/19 13:14 11/03/19 13:09 Tylenol #3 PO 1 tab Q6H PRN Administration Pain, Moderate (4-6) Albuterol 2.5 mg 10/28/19 13:12 Proventil IH Q4HRT PRN Shortness Of Breath Desmopressin Acetate 0.1 mg 11/04/19 10:00 11/05/19 10:15 Ddavp PO 0.1 mg BID FAYE Administration Dextrose 50 ml 10/29/19 08:00 10/29/19 12:35 D50w (25gm) Syringe IV 50 ml Q30MIN PRN Administration Hypoglycemia Protocol Dextrose 1,000 mls @ 125 mls/hr 10/31/19 08:00 11/05/19 00:21 D5w IV 75 mls/hr DIRECT FAYE Administration Ondansetron HCl 4 mg 10/28/19 13:12 Zofran IV Q8H PRN Nausea And Vomiting Sodium Chloride 10 ml 10/28/19 22:00 11/05/19 10:14 Sodium Chloride Flush Syringe 10 Ml IV 10 ml BID FAYE Administration Sodium Chloride 10 ml 10/28/19 13:12 Sodium Chloride Flush Syringe 10 Ml IV PRN PRN LINE FLUSH Sterile Water 20 ml 11/03/19 14:00 Water For Inj Sterile (Pf) IV DAILY PRN CHLOROTHIAZIDE RECONSTITUTION Nutrition/Malnutrition Assess - Dietary Evaluation Nutrition/Malnutrition Findings: Nutrition Notes Start: 10/29/19 08:36 Freq: Status: Active Protocol: Document 11/03/19 11:28 LM (Rec: 11/03/19 11:45 LM [email or web address]) Nutrition Notes Initial or Follow up Reassessment Current Diagnosis Acute Kidney Injury,Decubitus( Pressure Ulcer),Diabetes, Hypertension Other Pertinent Diagnosis Sacral and heel wound, pneu Current Diet Cardiac Labs/Tests Na 154 BUN 70 Cr 2.0 Pertinent Medications Reviewed Height 6 ft 2 in Weight 88.5 kg [place] Body Weight (kg) 86.36 BMI 25.0 Weight Status Overweight Subjective/Other Information Per RN pt is not eating well ( 25% of breakfast) but drink Ensure High Protein 3x/day. Percent of energy/protein needs met: 47%/61% Burn Absent Trauma Absent Current % PO Poor (25-49%) Minimum of two criteria No Fluid Accumulation Moderate to Severe (severe) #2 Nutrition Diagnosis Inadequate oral intake Etiology COVID-19 infection, chronic illness As Evidenced by Signs and Symptoms pt with poor intakes #1 Nutrition Diagnosis Increased nutrient needs ( specify in comment below) Diagnosis Progress(for reassessment Continues documentation) Is patient on ventilator? No Is Patient Ambulatory and/or Out of Bed No REE-([facility]-confined to bed) 2134.212 Calculation Used for Recommendations [facility] Additional Notes Protein needs are 113-136g (1. 2-1.5g/kg) Fluid needs are 1ml/kcal Nutrition Intervention Change Diet Order: Cardiac Add Supplement/Snack (indicate name/kcal Ensure High protein TID /protein ) Provides kCal: 480 Provides Protein (gm) 48 Goal #1 Meet at least 80% of kcal and protein needs Goal #2 Wound healing Anticipated Discharge Needs: Cardiac diet with ONS BID Follow-Up By: 11/14/19 Additional Comments F/U for PO/ONS intakes
[2019-11-06] MEDS: DESMOPRESSIN 0.1 MG TAB PO SCH ×2 (09:30→21:17)
[2019-11-06] MEDS: DEXTROSE 5% IN WATER 1,000 ML IV SCH (10:12)
--- NOTE | 2019-11-06 11:15 | Progress Note ---
Assessment and Plan 1. Acute kidney injury: Likely vasomotor RAFAEL superimposed on CKD stage 3 in the setting of volume depletion, hypotension, SIRS/sepsis and obstructive uropathy. CT abdomen showed bilateral hydronephrosis. Creatinine in November 2018 was 2.1 which is likely his baseline. Continue IV fluids. Creatinine level increased to 2.5 11/04. Labs from today pending. Monitor renal function. Renal prognosis is guarded. Avoid nephrotoxic agents. Meds dosage based on GFR. 2. FEN: Hypernatremia, increased to 159 today, continue D5W and started on DDAVP, monitor. Hyperkalemia, improved, monitor. Metabolic acidosis, monitor. Monitor lytes and volume status. 3. Bilateral hydronephrosis: Secondary to bladder retention. S/p duncan catheter. 4. Bilateral pneumonia: Pneumonia protocol. Supplemental oxygen, nebulizer therapy and IV antibiotic therapy. Follow blood culture. COVID positive. 5. SIRS / Sepsis: Likely 2/2 PNA. 6. Suspected COVID-19 virus infection. 7. Metabolic encephalopathy: Toxic metabolic, POA. 8. R foot wound, POA. - Subjective: Patient was seen and examined at the bedside. No acute events reported. - General Appearance General appearance: well-developed, appears stated age, not in distress HEENT: ATNC, YRN Neck: neck supple, trachea midline Respiratory: Clear to Ascultation Heart: regular, S1S2, no murmurs Gastrointestinal: soft, normoactive bowel sounds, not tender Integumentary: ulcer R foot sole Neurologic: alert, able to tell his name, able to move extremities, confused Ext: no edema, R flat foot, L BKA Subjective Date of service: 11/06/19 Principal diagnosis: ,+RAFAEL/CKD, bilateral pneumonia PUI?: Yes COVID19: Positive Objective - Vital Signs Vital signs: Vital Signs - 12hr 11/06/19 11/06/19 11/06/19 04:17 04:18 07:59 Temperature 97.6 F Pulse Rate 100 H 99 H Respiratory 18 18 Rate Blood Pressure 117/73 O2 Sat by Pulse 95 96 98 Oximetry - Lab 10/31/19 05:32 11/05/19 04:47 Most recent lab results Calcium 9.0 mg/dL (8.4-10.2) 11/05/19 04:47 Phosphorus 3.70 mg/dL (2.5-4.5) 11/03/19 04:25 Magnesium 2.10 mg/dL (1.7-2.3) 10/29/19 06:59 Urine Creatinine 86.8 mg/dL (0.1-20.0) H 10/28/19 14:55 Urine Sodium 42 mmol/L 10/28/19 14:55 Medications & Allergies - Medications Allergies/Adverse Reactions: Allergies No Known Allergies Allergy (Verified 01/05/15 14:31) Home Medications: Home Medications Medication Instructions Recorded Confirmed Last Taken Type hydrALAZINE [Apresoline TAB] 25 mg PO Q8HR #90 tablet 08/25/14 11/01/19 12/08/18 21:00 Rx Pregabalin [Lyrica] 200 mg PO TID 05/29/16 11/01/19 12/08/18 21:00 History Adult Probiotic 1 tab PO DAILY 11/01/19 11/01/19 Unknown History Aspirin BABY CHEW TAB 81 mg PO DAILY 11/01/19 11/01/19 Unknown History Baby Vitamin D3 2,000 units PO DAILY 11/01/19 11/01/19 Unknown History Brimonidine Tartrate 0.2% 1 drop OU QHS 11/01/19 11/01/19 Unknown History Colchicine 0.6 mg PO BID 11/01/19 11/01/19 Unknown History DUONEB *Not for PRN Use* 0.5 - 2.5 mg INHALATION Q6HR PRN 11/01/19 11/01/19 Unknown History Hydrocodone-Acetamin 10-325/15 1 tab PO TID PRN 11/01/19 11/01/19 Unknown History Lipitor 10 mg PO QHS 11/01/19 11/01/19 Unknown History Loperamide 2 mg PO Q24HR PRN 11/01/19 11/01/19 Unknown History Metoprolol 25 mg PO DAILY 11/01/19 11/01/19 Unknown History Robitussin Cough-Chest Dm Liq 15 ml PO BID 11/01/19 11/01/19 Unknown History Sennosides [Senna] 8.6 mg PO Q24HR PRN 11/01/19 11/01/19 Unknown History Verapamil 180 mg PO BID 11/01/19 11/01/19 Unknown History traMADoL 50 mg PO Q6HR PRN 11/01/19 11/01/19 Unknown History Active Medications: Generic Name Dose Route Start Last Admin Trade Name Oliverioq PRN Reason Stop Dose Admin Acetaminophen 650 mg 10/28/19 13:12 10/30/19 21:39 Tylenol PO 650 mg Q4H PRN Administration Pain MILD(1-3)/Fever >100.5/EDUARDO Acetaminophen/Codeine Phosphate 1 tab 10/28/19 13:14 11/03/19 13:09 Tylenol #3 PO 1 tab Q6H PRN Administration Pain, Moderate (4-6) Albuterol 2.5 mg 10/28/19 13:12 Proventil IH Q4HRT PRN Shortness Of Breath Desmopressin Acetate 0.1 mg 11/04/19 10:00 11/06/19 09:30 Ddavp PO 0.1 mg BID FAYE Administration Dextrose 50 ml 10/29/19 08:00 10/29/19 12:35 D50w (25gm) Syringe IV 50 ml Q30MIN PRN Administration Hypoglycemia Protocol Dextrose 1,000 mls @ 125 mls/hr 10/31/19 08:00 11/06/19 10:12 D5w IV 75 mls/hr DIRECT FAYE Administration Ondansetron HCl 4 mg 10/28/19 13:12 Zofran IV Q8H PRN Nausea And Vomiting Sodium Chloride 10 ml 10/28/19 22:00 11/06/19 09:30 Sodium Chloride Flush Syringe 10 Ml IV 10 ml BID FAYE Administration Sodium Chloride 10 ml 10/28/19 13:12 Sodium Chloride Flush Syringe 10 Ml IV PRN PRN LINE FLUSH
[2019-11-06] MEDS ORDERED: HALOPERIDOL 2 MG TAB FEEDTUBE PRN (11:37)
--- NOTE | 2019-11-06 11:42 | Progress Note ---
Assessment and Plan Assessment and plan: --Severe sepsis due to COVID-19 positive bilateral pneumonia. Current Visit: Yes Status: Acute Very poor prognosis s/p empiric IV antibiotic therapy, Covid test positive. Oxygen titrate O2 sats to more than 90%. IV cefepime, hydro-chloroquine and zinc per ID D-dimer, LDH, procalcitonin, ferritin level, --Metabolic encephalopathy /severe agitation Current Visit: Yes Status: Acute Haldol IM as needed, restraint for safety Psych consult if no improvement --Right upper extremity swelling: Current Visit: Yes Status: Acute Venous Doppler negative for DVT, superficial thrombosis Supportive care, --Elevated D-dimers; Patient had CT chest on 10/28/2019, bilateral pneumonia --RAFAEL (acute kidney injury) on CKD Current Visit: Yes Status: Acute Due to vasomotor nephropathy, gentle hydration, avoid nephrotoxins. Nephrology following, monitor renal function --Hyponatremia resolved Current Visit: Yes Status: Acute Sodium levels overcorrected/hypernatremia Change IV fluids to D5 W, monitor sodium levels --Acidosis Current Visit: Yes Status: Acute Aggressive IV fluid resuscitation therapy, supportive care, Closely monitor -- Hypokalemia Current Visit: Yes Status: Acute Potassium supplemented, follow potassium levels --sacral decubitus ulcer/stage IV Current Visit: Yes Status: Acute Patient has a chronic sacral stage IV ulcer with mild necrotic area and no purulence, also right plantar wound, both chronic not infected. Wound care on board. Off loading is mainstay therapy. --DVT prophylaxis Current Visit: Yes Status: Acute SCD to bilateral lower extremities while in bed, prophylactic heparin. --Advanced care planning/counseling discussion/full code Current Visit: Yes Status: Acute Patient is full code, Plan of care reviewed with the patient, and his nurse Isolation precautions; contact and droplet isolation inplace History Interval history: Patient was seen and examined singers years at the bedside this morning Patient is Covid-19 positive, and contact and droplet isolation Examined the patient with full PPE per [facility] protocol Patient is in mild distress, wants to get off the bed and sit in the chair Has been agitated requiring restraints at times for safety Vital signs reviewed PUI?: Yes COVID19: Positive Hospitalist Physical - Constitutional Vitals: Temp Pulse Resp BP Pulse Ox 97.6 F 99 H 18 117/73 98 11/06/19 04:17 11/06/19 04:18 11/06/19 04:18 11/06/19 04:17 11/06/19 07:59 General appearance: Present: mild distress, well-nourished - EENT Eyes: Present: PERRL, EOM intact - Neck Neck: Present: supple, normal ROM - Respiratory Respiratory effort: normal Respiratory: bilateral: diminished, negative: rales, rhonchi, wheezing - Cardiovascular Rhythm: regular Heart Sounds: Present: S1 & S2 - Extremities Extremities: no ischemia, pulses intact, pulses symmetrical - Abdominal General gastrointestinal: soft, non-tender, non-distended, distended, normal bowel sounds - Integumentary Integumentary: Present: clear, warm - Psychiatric Psychiatric: appropriate mood/affect, cooperative - Neurologic Neurologic: CNII-XII intact, moves all extremities Results - Labs CBC & Chem 7: 10/31/19 05:32 11/05/19 04:47 Labs: Laboratory Last Values WBC 6.0 K/mm3 (4.5-11.0) 10/31/19 05:32 RBC 4.95 M/mm3 (3.65-5.03) 10/31/19 05:32 Hgb 12.6 gm/dl (11.8-15.2) 10/31/19 05:32 Hct 39.9 % (35.5-45.6) 10/31/19 05:32 MCV 81 fl (84-94) L 10/31/19 05:32 MCH 26 pg (28-32) L 10/31/19 05:32 MCHC 32 % (32-34) 10/31/19 05:32 RDW 20.4 % (13.2-15.2) H 10/31/19 05:32 Plt Count 126 K/mm3 (140-440) L 10/31/19 05:32 Lymph % (Auto) 17.4 % (13.4-35.0) 10/30/19 08:01 Anderson % (Auto) 7.9 % (0.0-7.3) H 10/30/19 08:01 Eos % (Auto) 0.1 % (0.0-4.3) 10/30/19 08:01 Baso % (Auto) 0.5 % (0.0-1.8) 10/30/19 08:01 Lymph # 1.1 K/mm3 (1.2-5.4) L 10/30/19 08:01 Anderson # 0.5 K/mm3 (0.0-0.8) 10/30/19 08:01 Eos # 0.0 K/mm3 (0.0-0.4) 10/30/19 08:01 Baso # 0.0 K/mm3 (0.0-0.1) 10/30/19 08:01 Add Manual Diff Complete 10/31/19 05:32 Total Counted 100 10/31/19 05:32 Seg Neutrophils % 74.1 % (40.0-70.0) H 10/30/19 08:01 Seg Neuts % (Manual) 80.0 % (40.0-70.0) H 10/31/19 05:32 Band Neutrophils % 0 % 10/31/19 05:32 Lymphocytes % (Manual) 13.0 % (13.4-35.0) L 10/31/19 05:32 Reactive Lymphs % (Man) 0 % 10/31/19 05:32 Monocytes % (Manual) 6.0 % (0.0-7.3) 10/31/19 05:32 Eosinophils % (Manual) 1.0 % (0.0-4.3) 10/31/19 05:32 Basophils % (Manual) 0 % (0.0-1.8) 10/31/19 05:32 Metamyelocytes % 0 % 10/31/19 05:32 Myelocytes % 0 % 10/31/19 05:32 Promyelocytes % 0 % 10/31/19 05:32 Blast Cells % 0 % 10/31/19 05:32 Nucleated RBC % 2.0 % (0.0-0.9) H 10/31/19 05:32 Seg Neutrophils # 4.9 K/mm3 (1.8-7.7) 10/30/19 08:01 Seg Neutrophils # Man 4.8 K/mm3 (1.8-7.7) 10/31/19 05:32 Band Neutrophils # 0.0 K/mm3 10/31/19 05:32 Lymphocytes # (Manual) 0.8 K/mm3 (1.2-5.4) L 10/31/19 05:32 Abs React Lymphs (Man) 0.0 K/mm3 10/31/19 05:32 Monocytes # (Manual) 0.4 K/mm3 (0.0-0.8) 10/31/19 05:32 Eosinophils # (Manual) 0.1 K/mm3 (0.0-0.4) 10/31/19 05:32 Basophils # (Manual) 0.0 K/mm3 (0.0-0.1) 10/31/19 05:32 Metamyelocytes # 0.0 K/mm3 10/31/19 05:32 Myelocytes # 0.0 K/mm3 10/31/19 05:32 Promyelocytes # 0.0 K/mm3 10/31/19 05:32 Blast Cells # 0.0 K/mm3 10/31/19 05:32 WBC Morphology Not Reportable 10/31/19 05:32 Hypersegmented Neuts Not Reportable 10/31/19 05:32 Hyposegmented Neuts Not Reportable 10/31/19 05:32 Hypogranular Neuts Not Reportable 10/31/19 05:32 Smudge Cells Not Reportable 10/31/19 05:32 Toxic Granulation Not Reportable 10/31/19 05:32 Toxic Vacuolation Not Reportable 10/31/19 05:32 Dohle Bodies Not Reportable 10/31/19 05:32 Pelger-Huet Anomaly Not Reportable 10/31/19 05:32 Everett Rods Not Reportable 10/31/19 05:32 Platelet Estimate Consistent w auto 10/31/19 05:32 Clumped Platelets Not Reportable 10/31/19 05:32 Plt Clumps, EDTA Not Reportable 10/31/19 05:32 Large Platelets Not Reportable 10/31/19 05:32 Giant Platelets Not Reportable 10/31/19 05:32 Platelet Satelliting Not Reportable 10/31/19 05:32 Plt Morphology Comment Not Reportable 10/31/19 05:32 RBC Morphology Not Reportable 10/31/19 05:32 Dimorphic RBCs Not Reportable 10/31/19 05:32 Polychromasia Not Reportable 10/31/19 05:32 Hypochromasia Few 10/31/19 05:32 Poikilocytosis Not Reportable 10/31/19 05:32 Anisocytosis 1+ 10/31/19 05:32 Microcytosis Not Reportable 10/31/19 05:32 Macrocytosis Not Reportable 10/31/19 05:32 Spherocytes Not Reportable 10/31/19 05:32 Pappenheimer Bodies Not Reportable 10/31/19 05:32 Sickle Cells Not Reportable 10/31/19 05:32 Target Cells Not Reportable 10/31/19 05:32 Tear Drop Cells Not Reportable 10/31/19 05:32 Ovalocytes Not Reportable 10/31/19 05:32 Helmet Cells Not Reportable 10/31/19 05:32 Ross-Nicasio Bodies Not Reportable 10/31/19 05:32 Chunky Rings Not Reportable 10/31/19 05:32 Aric Cells Not Reportable 10/31/19 05:32 Bite Cells Not Reportable 10/31/19 05:32 Crenated Cell Not Reportable 10/31/19 05:32 Elliptocytes Not Reportable 10/31/19 05:32 Acanthocytes (Spur) Not Reportable 10/31/19 05:32 Rouleaux Not Reportable 10/31/19 05:32 Hemoglobin C Crystals Not Reportable 10/31/19 05:32 Schistocytes Not Reportable 10/31/19 05:32 Malaria parasites Not Reportable 10/31/19 05:32 Aristides Bodies Not Reportable 10/31/19 05:32 Hem Pathologist Commnt No 10/31/19 05:32 D-Dimer 1502.15 ng/mlDDU (0-234) H 11/05/19 04:47 Sodium 160 mmol/L (137-145) H 11/05/19 04:47 Potassium 3.9 mmol/L (3.6-5.0) 11/05/19 04:47 Chloride 131.5 mmol/L (98-107) H 11/05/19 04:47 Carbon Dioxide 18 mmol/L (22-30) L 11/05/19 04:47 Anion Gap 15 mmol/L 11/05/19 04:47 BUN 82 mg/dL (9-20) H 11/05/19 04:47 Creatinine 2.5 mg/dL (0.8-1.5) H 11/05/19 04:47 Estimated GFR 32 ml/min 11/05/19 04:47 BUN/Creatinine Ratio 33 % 11/05/19 04:47 Glucose 155 mg/dL (75-100) H 11/05/19 04:47 POC Glucose 196 (70-105) H 11/04/19 21:32 Lactic Acid 1.00 mmol/L (0.7-2.0) 10/28/19 15:25 Calcium 9.0 mg/dL (8.4-10.2) 11/05/19 04:47 Phosphorus 3.70 mg/dL (2.5-4.5) 11/03/19 04:25 Magnesium 2.10 mg/dL (1.7-2.3) 10/29/19 06:59 Ferritin 793.2 ng/mL (13.0-400.0) H 11/05/19 04:47 Total Bilirubin 0.40 mg/dL (0.1-1.2) 10/31/19 05:32 Direct Bilirubin < 0.2 mg/dL (0-0.2) 10/28/19 11:22 Indirect Bilirubin 0.2 mg/dL 10/28/19 11:22 AST 267 units/L (5-40) H 10/31/19 05:32 ALT 77 units/L (7-56) H 10/31/19 05:32 Alkaline Phosphatase 82 units/L (35-129) 10/31/19 05:32 Lactate Dehydrogenase 447 units/L (91-180) H 11/05/19 04:47 C-Reactive Protein 18.00 mg/dL (0.00-1.30) H 11/05/19 04:47 Total Protein 7.3 g/dL (6.3-8.2) D 10/31/19 05:32 Albumin 2.0 g/dL (3.9-5) L 10/31/19 05:32 Albumin/Globulin Ratio 0.4 % 10/31/19 05:32 Lipase 89 units/L (13-60) H 10/28/19 11:22 Procalcitonin 91.05 ng/mL (<0.15) 10/28/19 13:31 PTH Intact 120.0 pg/mL (15-65) H 10/29/19 06:59 Urine Color Yellow (Yellow) 10/29/19 00:47 Urine Turbidity Cloudy (Clear) 10/29/19 00:47 Urine pH 6.0 (5.0-7.0) 10/29/19 00:47 Ur Specific Letts 1.010 (1.003-1.030) 10/29/19 00:47 Urine Protein 30 mg/dl mg/dL (Negative) 10/29/19 00:47 Urine Glucose (UA) Neg mg/dL (Negative) 10/29/19 00:47 Urine Ketones Neg mg/dL (Negative) 10/29/19 00:47 Urine Blood Lg (Negative) 10/29/19 00:47 Urine Nitrite Pos (Negative) 10/29/19 00:47 Urine Bilirubin Neg (Negative) 10/29/19 00:47 Urine Urobilinogen < 2.0 mg/dL (<2.0) 10/29/19 00:47 Ur Leukocyte Esterase Lg (Negative) 10/29/19 00:47 Urine WBC (Auto) > 182.0 /HPF (0.0-6.0) H 10/29/19 00:47 Urine RBC (Auto) 58.0 /HPF (0.0-6.0) 10/29/19 00:47 U Epithel Cells (Auto) < 1.0 /HPF (0-13.0) 10/29/19 00:47 Urine Bacteria (Auto) 4+ /HPF (Negative) 10/29/19 00:47 Urine WBC Clumps 2+ /HPF 10/28/19 14:55 Urine Mucus Few /HPF 10/28/19 14:55 Urine Yeast (Budding) 2+ /HPF 10/28/19 14:55 Urine Osmolality 364 Mosm/kg 11/04/19 21:10 Urine Creatinine 86.8 mg/dL (0.1-20.0) H 10/28/19 14:55 Urine Sodium 42 mmol/L 10/28/19 14:55 Influenza A (Rapid) Negative (Negative) 11/01/19 15:30 Influenza A (RT-PCR) Negative (Negative) 11/01/19 15:30 Influenza B (Rapid) Negative (Negative) 11/01/19 15:30 Influenza B (RT-PCR) Negative (Negative) 11/01/19 15:30 Miscellaneous Test See scanned result 11/01/19 Unknown Coburn/IV: Voiding Method Indwelling Catheter IV Catheter Type [Right INT / Saline Lock Forearm] IV Catheter Type [Left Wrist] Peripheral IV IV Catheter Type [Right Hand] Peripheral IV Active Medications - Current Medications Current Medications: Generic Name Dose Route Start Last Admin Trade Name Freq PRN Reason Stop Dose Admin Acetaminophen 650 mg 10/28/19 13:12 10/30/19 21:39 Tylenol PO 650 mg Q4H PRN Administration Pain MILD(1-3)/Fever >100.5/EDUARDO Acetaminophen/Codeine Phosphate 1 tab 10/28/19 13:14 11/03/19 13:09 Tylenol #3 PO 1 tab Q6H PRN Administration Pain, Moderate (4-6) Albuterol 2.5 mg 10/28/19 13:12 Proventil IH Q4HRT PRN Shortness Of Breath Desmopressin Acetate 0.1 mg 11/04/19 10:00 11/06/19 09:30 Ddavp PO 0.1 mg BID FAYE Administration Dextrose 50 ml 10/29/19 08:00 10/29/19 12:35 D50w (25gm) Syringe IV 50 ml Q30MIN PRN Administration Hypoglycemia Protocol Haloperidol Lactate 2 mg 11/06/19 11:37 Haldol FEEDTUBE Q6H PRN Agitation Dextrose 1,000 mls @ 125 mls/hr 10/31/19 08:00 11/06/19 10:12 D5w IV 75 mls/hr DIRECT FAYE Administration Ondansetron HCl 4 mg 10/28/19 13:12 Zofran IV Q8H PRN Nausea And Vomiting Sodium Chloride 10 ml 10/28/19 22:00 11/06/19 09:30 Sodium Chloride Flush Syringe 10 Ml IV 10 ml BID FAYE Administration Sodium Chloride 10 ml 10/28/19 13:12 Sodium Chloride Flush Syringe 10 Ml IV PRN PRN LINE FLUSH Nutrition/Malnutrition Assess - Dietary Evaluation Nutrition/Malnutrition Findings: Nutrition Notes Start: 10/29/19 08:36 Freq: Status: Active Protocol: Document 11/03/19 11:28 LM (Rec: 11/03/19 11:45 LM -[email or web address]) Nutrition Notes Initial or Follow up Reassessment Current Diagnosis Acute Kidney Injury,Decubitus( Pressure Ulcer),Diabetes, Hypertension Other Pertinent Diagnosis Sacral and heel wound, pneu Current Diet Cardiac Labs/Tests Na 154 BUN 70 Cr 2.0 Pertinent Medications Reviewed Height 6 ft 2 in Weight 88.5 kg Eckert Body Weight (kg) 86.36 BMI 25.0 Weight Status Overweight Subjective/Other Information Per RN pt is not eating well ( 25% of breakfast) but drink Ensure High Protein 3x/day. Percent of energy/protein needs met: 47%/61% Burn Absent Trauma Absent Current % PO Poor (25-49%) Minimum of two criteria No Fluid Accumulation Moderate to Severe (severe) #2 Nutrition Diagnosis Inadequate oral intake Etiology COVID-19 infection, chronic illness As Evidenced by Signs and Symptoms pt with poor intakes #1 Nutrition Diagnosis Increased nutrient needs ( specify in comment below) Diagnosis Progress(for reassessment Continues documentation) Is patient on ventilator? No Is Patient Ambulatory and/or Out of Bed No REE-([facility]-confined to bed) [phone] Calculation Used for Recommendations [facility] Additional Notes Protein needs are 113-136g (1. 2-1.5g/kg) Fluid needs are 1ml/kcal Nutrition Intervention Change Diet Order: Cardiac Add Supplement/Snack (indicate name/kcal Ensure High protein TID /protein ) Provides kCal: 480 Provides Protein (gm) 48 Goal #1 Meet at least 80% of kcal and protein needs Goal #2 Wound healing Anticipated Discharge Needs: Cardiac diet with ONS BID Follow-Up By: 11/14/19 Additional Comments F/U for PO/ONS intakes
[2019-11-06] MEDS: HALOPERIDOL LACTATE 5 MG/1 ML INJ IM PRN (18:22)
[2019-11-06] MEDS: ACETAMINOPHEN W/CODEINE 300-30 MG TAB PO PRN (21:18)
[2019-11-06 22:14] LABS: Calcium 8.4 mg/dL (8.4-10.2)
[2019-11-07] MEDS: DEXTROSE 5% IN WATER 1,000 ML IV SCH ×2 (01:11→16:24)
[2019-11-07] MEDS: HALOPERIDOL LACTATE 5 MG/1 ML INJ IM PRN (01:11)
[2019-11-07] MEDS: ACETAMINOPHEN W/CODEINE 300-30 MG TAB PO PRN ×2 (04:59→23:26)
[2019-11-07 06:44] LABS: Calcium 8.9 mg/dL (8.4-10.2)
[2019-11-07 06:45] LABS: C-Reactive Protein 14.1 mg/dL (0.00-1.30)
[2019-11-07] MEDS ORDERED: POTASSIUM CHLORIDE ER 20 MEQ TAB PO NR (08:00)
[2019-11-07] MEDS: DESMOPRESSIN 0.1 MG TAB PO SCH ×2 (09:04→23:23)
--- NOTE | 2019-11-07 12:00 | Progress Note ---
Assessment and Plan Assessment and plan: --Severe sepsis due to COVID-19 positive bilateral pneumonia. Current Visit: Yes Status: Acute Very poor prognosis s/p empiric IV antibiotic therapy, Covid test positive. Oxygen titrate O2 sats to more than 90%. Completed IV cefepime, hydro-chloroquine and zinc per ID D-dimer, LDH, procalcitonin, ferritin level, --Metabolic encephalopathy /severe agitation Current Visit: Yes Status: Acute Haldol IM as needed, restraint for safety Psych consult if no improvement --Right upper extremity swelling: Current Visit: Yes Status: Acute Venous Doppler negative for DVT, superficial thrombosis Supportive care, --Elevated D-dimers; Patient had CT chest on 10/28/2019, bilateral pneumonia --RAFAEL (acute kidney injury) on CKD Current Visit: Yes Status: Acute Due to vasomotor nephropathy, gentle hydration, avoid nephrotoxins. Nephrology following, monitor renal function --Hyponatremia resolved Current Visit: Yes Status: Acute Sodium levels overcorrected/hypernatremia Change IV fluids to D5 W, monitor sodium levels --Acidosis Current Visit: Yes Status: Acute Aggressive IV fluid resuscitation therapy, supportive care, Closely monitor -- Hypokalemia Current Visit: Yes Status: Acute Potassium supplemented, follow potassium levels --sacral decubitus ulcer/stage IV Current Visit: Yes Status: Acute Patient has a chronic sacral stage IV ulcer with mild necrotic area and no purulence, also right plantar wound, both chronic not infected. Wound care on board. Off loading is mainstay therapy. --DVT prophylaxis Current Visit: Yes Status: Acute SCD to bilateral lower extremities while in bed, prophylactic heparin. --Advanced care planning/counseling discussion/full code Current Visit: Yes Status: Acute Patient is full code, Plan of care reviewed with the patient, and his nurse Isolation precautions; contact and droplet isolation inplace History Interval history: Patient remains critically ill, cachectic Refusing to eat, dehydrated Minimally communicative Vital signs reviewed PUI?: Yes COVID19: Positive Hospitalist Physical - Physical exam Narrative exam: Limited physical exam due to shortage of PPE - Constitutional Vitals: Temp Pulse Resp BP Pulse Ox 97.9 F 104 H 16 106/68 95 11/06/19 16:17 11/06/19 16:17 11/07/19 06:26 11/07/19 06:26 11/07/19 09:11 General appearance: Present: mild distress, well-nourished - EENT ENT: other (Not done due to lack of PPE) - Neck Neck: Present: other (Not done) - Respiratory Respiratory effort: other (Not done due to lack of PPE) - Extremities Extremity abnormal: other (Not done due to lack of PPE) - Abdominal General gastrointestinal: other (Not done) - Psychiatric Psychiatric: other (Shortage of PPE) - Neurologic Neurologic: other (Shortage of PPE) Results - Labs CBC & Chem 7: 10/31/19 05:32 11/08/19 07:45 Labs: Laboratory Last Values WBC 6.0 K/mm3 (4.5-11.0) 10/31/19 05:32 RBC 4.95 M/mm3 (3.65-5.03) 10/31/19 05:32 Hgb 12.6 gm/dl (11.8-15.2) 10/31/19 05:32 Hct 39.9 % (35.5-45.6) 10/31/19 05:32 MCV 81 fl (84-94) L 10/31/19 05:32 MCH 26 pg (28-32) L 10/31/19 05:32 MCHC 32 % (32-34) 10/31/19 05:32 RDW 20.4 % (13.2-15.2) H 10/31/19 05:32 Plt Count 126 K/mm3 (140-440) L 10/31/19 05:32 Lymph % (Auto) 17.4 % (13.4-35.0) 10/30/19 08:01 [place] % (Auto) 7.9 % (0.0-7.3) H 10/30/19 08:01 Eos % (Auto) 0.1 % (0.0-4.3) 10/30/19 08:01 Baso % (Auto) 0.5 % (0.0-1.8) 10/30/19 08:01 Lymph # 1.1 K/mm3 (1.2-5.4) L 10/30/19 08:01 [place] # 0.5 K/mm3 (0.0-0.8) 10/30/19 08:01 Eos # 0.0 K/mm3 (0.0-0.4) 10/30/19 08:01 Baso # 0.0 K/mm3 (0.0-0.1) 10/30/19 08:01 Add Manual Diff Complete 10/31/19 05:32 Total Counted 100 10/31/19 05:32 Seg Neutrophils % 74.1 % (40.0-70.0) H 10/30/19 08:01 Seg Neuts % (Manual) 80.0 % (40.0-70.0) H 10/31/19 05:32 Band Neutrophils % 0 % 10/31/19 05:32 Lymphocytes % (Manual) 13.0 % (13.4-35.0) L 10/31/19 05:32 Reactive Lymphs % (Man) 0 % 10/31/19 05:32 Monocytes % (Manual) 6.0 % (0.0-7.3) 10/31/19 05:32 Eosinophils % (Manual) 1.0 % (0.0-4.3) 10/31/19 05:32 Basophils % (Manual) 0 % (0.0-1.8) 10/31/19 05:32 Metamyelocytes % 0 % 10/31/19 05:32 Myelocytes % 0 % 10/31/19 05:32 Promyelocytes % 0 % 10/31/19 05:32 Blast Cells % 0 % 10/31/19 05:32 Nucleated RBC % 2.0 % (0.0-0.9) H 10/31/19 05:32 Seg Neutrophils # 4.9 K/mm3 (1.8-7.7) 10/30/19 08:01 Seg Neutrophils # Man 4.8 K/mm3 (1.8-7.7) 10/31/19 05:32 Band Neutrophils # 0.0 K/mm3 10/31/19 05:32 Lymphocytes # (Manual) 0.8 K/mm3 (1.2-5.4) L 10/31/19 05:32 Abs React Lymphs (Man) 0.0 K/mm3 10/31/19 05:32 Monocytes # (Manual) 0.4 K/mm3 (0.0-0.8) 10/31/19 05:32 Eosinophils # (Manual) 0.1 K/mm3 (0.0-0.4) 10/31/19 05:32 Basophils # (Manual) 0.0 K/mm3 (0.0-0.1) 10/31/19 05:32 Metamyelocytes # 0.0 K/mm3 10/31/19 05:32 Myelocytes # 0.0 K/mm3 10/31/19 05:32 Promyelocytes # 0.0 K/mm3 10/31/19 05:32 Blast Cells # 0.0 K/mm3 10/31/19 05:32 WBC Morphology Not Reportable 10/31/19 05:32 Hypersegmented Neuts Not Reportable 10/31/19 05:32 Hyposegmented Neuts Not Reportable 10/31/19 05:32 Hypogranular Neuts Not Reportable 10/31/19 05:32 Smudge Cells Not Reportable 10/31/19 05:32 Toxic Granulation Not Reportable 10/31/19 05:32 Toxic Vacuolation Not Reportable 10/31/19 05:32 Dohle Bodies Not Reportable 10/31/19 05:32 Pelger-Huet Anomaly Not Reportable 10/31/19 05:32 [place] Rods Not Reportable 10/31/19 05:32 Platelet Estimate Consistent w auto 10/31/19 05:32 Clumped Platelets Not Reportable 10/31/19 05:32 Plt Clumps, EDTA Not Reportable 10/31/19 05:32 Large Platelets Not Reportable 10/31/19 05:32 Giant Platelets Not Reportable 10/31/19 05:32 Platelet Satelliting Not Reportable 10/31/19 05:32 Plt Morphology Comment Not Reportable 10/31/19 05:32 RBC Morphology Not Reportable 10/31/19 05:32 Dimorphic RBCs Not Reportable 10/31/19 05:32 Polychromasia Not Reportable 10/31/19 05:32 Hypochromasia Few 10/31/19 05:32 Poikilocytosis Not Reportable 10/31/19 05:32 Anisocytosis 1+ 10/31/19 05:32 Microcytosis Not Reportable 10/31/19 05:32 Macrocytosis Not Reportable 10/31/19 05:32 Spherocytes Not Reportable 10/31/19 05:32 Pappenheimer Bodies Not Reportable 10/31/19 05:32 Sickle Cells Not Reportable 10/31/19 05:32 Target Cells Not Reportable 10/31/19 05:32 Tear Drop Cells Not Reportable 10/31/19 05:32 Ovalocytes Not Reportable 10/31/19 05:32 Helmet Cells Not Reportable 10/31/19 05:32 Ross-Darwin Bodies Not Reportable 10/31/19 05:32 Gunlock Rings Not Reportable 10/31/19 05:32 Aric Cells Not Reportable 10/31/19 05:32 Bite Cells Not Reportable 10/31/19 05:32 Crenated Cell Not Reportable 10/31/19 05:32 Elliptocytes Not Reportable 10/31/19 05:32 Acanthocytes (Spur) Not Reportable 10/31/19 05:32 Rouleaux Not Reportable 10/31/19 05:32 Hemoglobin C Crystals Not Reportable 10/31/19 05:32 Schistocytes Not Reportable 10/31/19 05:32 Malaria parasites Not Reportable 10/31/19 05:32 Aristides Bodies Not Reportable 10/31/19 05:32 Hem Pathologist Commnt No 10/31/19 05:32 D-Dimer 3488 ng/mlDDU (0-234) H 11/07/19 05:17 Sodium 151 mmol/L (137-145) H 11/07/19 05:17 Potassium 3.5 mmol/L (3.6-5.0) L 11/07/19 05:17 Chloride 117.6 mmol/L (98-107) H 11/07/19 05:17 Carbon Dioxide 17 mmol/L (22-30) L 11/07/19 05:17 Anion Gap 20 mmol/L 11/07/19 05:17 BUN 90 mg/dL (9-20) H 11/07/19 05:17 Creatinine 3.0 mg/dL (0.8-1.5) H 11/07/19 05:17 Estimated GFR 26 ml/min 11/07/19 05:17 BUN/Creatinine Ratio 30 % 11/07/19 05:17 Glucose 170 mg/dL (75-100) H 11/07/19 05:17 POC Glucose 152 (70-105) H 11/07/19 11:32 Lactic Acid 1.00 mmol/L (0.7-2.0) 10/28/19 15:25 Calcium 8.9 mg/dL (8.4-10.2) 11/07/19 05:17 Phosphorus 3.70 mg/dL (2.5-4.5) 11/03/19 04:25 Magnesium 2.10 mg/dL (1.7-2.3) 10/29/19 06:59 Ferritin 815.0 ng/mL (13.0-400.0) H 11/07/19 05:17 Total Bilirubin 0.40 mg/dL (0.1-1.2) 10/31/19 05:32 Direct Bilirubin < 0.2 mg/dL (0-0.2) 10/28/19 11:22 Indirect Bilirubin 0.2 mg/dL 10/28/19 11:22 AST 267 units/L (5-40) H 10/31/19 05:32 ALT 77 units/L (7-56) H 10/31/19 05:32 Alkaline Phosphatase 82 units/L (35-129) 10/31/19 05:32 Lactate Dehydrogenase 450 units/L (91-180) H 11/07/19 05:17 C-Reactive Protein 14.10 mg/dL (0.00-1.30) H 11/07/19 05:17 Total Protein 7.3 g/dL (6.3-8.2) D 10/31/19 05:32 Albumin 2.0 g/dL (3.9-5) L 10/31/19 05:32 Albumin/Globulin Ratio 0.4 % 10/31/19 05:32 Lipase 89 units/L (13-60) H 10/28/19 11:22 Procalcitonin 91.05 ng/mL (<0.15) 10/28/19 13:31 PTH Intact 120.0 pg/mL (15-65) H 10/29/19 06:59 Urine Color Yellow (Yellow) 10/29/19 00:47 Urine Turbidity Cloudy (Clear) 10/29/19 00:47 Urine pH 6.0 (5.0-7.0) 10/29/19 00:47 Ur Specific [place] 1.010 (1.003-1.030) 10/29/19 00:47 Urine Protein 30 mg/dl mg/dL (Negative) 10/29/19 00:47 Urine Glucose (UA) Neg mg/dL (Negative) 10/29/19 00:47 Urine Ketones Neg mg/dL (Negative) 10/29/19 00:47 Urine Blood Lg (Negative) 10/29/19 00:47 Urine Nitrite Pos (Negative) 10/29/19 00:47 Urine Bilirubin Neg (Negative) 10/29/19 00:47 Urine Urobilinogen < 2.0 mg/dL (<2.0) 10/29/19 00:47 Ur Leukocyte Esterase Lg (Negative) 10/29/19 00:47 Urine WBC (Auto) > 182.0 /HPF (0.0-6.0) H 10/29/19 00:47 Urine RBC (Auto) 58.0 /HPF (0.0-6.0) 10/29/19 00:47 U Epithel Cells (Auto) < 1.0 /HPF (0-13.0) 10/29/19 00:47 Urine Bacteria (Auto) 4+ /HPF (Negative) 10/29/19 00:47 Urine WBC Clumps 2+ /HPF 10/28/19 14:55 Urine Mucus Few /HPF 10/28/19 14:55 Urine Yeast (Budding) 2+ /HPF 10/28/19 14:55 Urine Osmolality 364 Mosm/kg 11/04/19 21:10 Urine Creatinine 86.8 mg/dL (0.1-20.0) H 10/28/19 14:55 Urine Sodium 42 mmol/L 10/28/19 14:55 Influenza A (Rapid) Negative (Negative) 11/01/19 15:30 Influenza A (RT-PCR) Negative (Negative) 11/01/19 15:30 Influenza B (Rapid) Negative (Negative) 11/01/19 15:30 Influenza B (RT-PCR) Negative (Negative) 11/01/19 15:30 Miscellaneous Test See scanned result 11/01/19 Unknown [place]/IV: Voiding Method Indwelling Catheter IV Catheter Type [Right INT / Saline Lock Forearm] IV Catheter Type [Left Wrist] Peripheral IV IV Catheter Type [Right Hand] Peripheral IV Active Medications - Current Medications Current Medications: Generic Name Dose Route Start Last Admin Trade Name Freq PRN Reason Stop Dose Admin Acetaminophen 650 mg 10/28/19 13:12 10/30/19 21:39 Tylenol PO 650 mg Q4H PRN Administration Pain MILD(1-3)/Fever >100.5/EDUARDO Acetaminophen/Codeine Phosphate 1 tab 10/28/19 13:14 11/07/19 04:59 Tylenol #3 PO 1 tab Q6H PRN Administration Pain, Moderate (4-6) Albuterol 2.5 mg 10/28/19 13:12 Proventil IH Q4HRT PRN Shortness Of Breath Desmopressin Acetate 0.1 mg 11/04/19 10:00 11/07/19 09:04 Ddavp PO 0.1 mg BID FAYE Administration Dextrose 50 ml 10/29/19 08:00 10/29/19 12:35 D50w (25gm) Syringe IV 50 ml Q30MIN PRN Administration Hypoglycemia Protocol Haloperidol Lactate 2 mg 11/06/19 13:13 11/07/19 01:11 Haldol IM 2 mg Q6H PRN Administration Agitation Dextrose 1,000 mls @ 125 mls/hr 10/31/19 08:00 11/07/19 01:11 D5w IV 75 mls/hr DIRECT FAYE Administration Ondansetron HCl 4 mg 10/28/19 13:12 Zofran IV Q8H PRN Nausea And Vomiting Potassium Chloride 20 meq 11/07/19 08:00 11/07/19 09:04 K-Dur PO 11/07/19 14:00 20 meq ONCE NR Administration Sodium Chloride 10 ml 10/28/19 22:00 11/07/19 09:04 Sodium Chloride Flush Syringe 10 Ml IV 10 ml BID FAYE Administration Sodium Chloride 10 ml 10/28/19 13:12 Sodium Chloride Flush Syringe 10 Ml IV PRN PRN LINE FLUSH Nutrition/Malnutrition Assess - Dietary Evaluation Nutrition/Malnutrition Findings: Nutrition Notes Start: 10/29/19 08:36 Freq: Status: Active Protocol: Document 11/03/19 11:28 LM (Rec: 11/03/19 11:45 LM [id number]) Nutrition Notes Initial or Follow up Reassessment Current Diagnosis Acute Kidney Injury,Decubitus( Pressure Ulcer),Diabetes, Hypertension Other Pertinent Diagnosis Sacral and heel wound, pneu Current Diet Cardiac Labs/Tests Na 154 BUN 70 Cr 2.0 Pertinent Medications Reviewed Height 6 ft 2 in Weight 88.5 kg [place] Body Weight (kg) 86.36 BMI 25.0 Weight Status Overweight Subjective/Other Information Per RN pt is not eating well ( 25% of breakfast) but drink Ensure High Protein 3x/day. Percent of energy/protein needs met: 47%/61% Burn Absent Trauma Absent Current % PO Poor (25-49%) Minimum of two criteria No Fluid Accumulation Moderate to Severe (severe) #2 Nutrition Diagnosis Inadequate oral intake Etiology COVID-19 infection, chronic illness As Evidenced by Signs and Symptoms pt with poor intakes #1 Nutrition Diagnosis Increased nutrient needs ( specify in comment below) Diagnosis Progress(for reassessment Continues documentation) Is patient on ventilator? No Is Patient Ambulatory and/or Out of Bed No REE-([facility]-confined to bed) [phone] Calculation Used for Recommendations [facility] Additional Notes Protein needs are 113-136g (1. 2-1.5g/kg) Fluid needs are 1ml/kcal Nutrition Intervention Change Diet Order: Cardiac Add Supplement/Snack (indicate name/kcal Ensure High protein TID /protein ) Provides kCal: 480 Provides Protein (gm) 48 Goal #1 Meet at least 80% of kcal and protein needs Goal #2 Wound healing Anticipated Discharge Needs: Cardiac diet with ONS BID Follow-Up By: 11/14/19 Additional Comments F/U for PO/ONS intakes
--- NOTE | 2019-11-07 12:31 | Progress Note ---
Assessment and Plan 1. Acute kidney injury: Likely vasomotor RAFAEL superimposed on CKD stage 3 in the setting of volume depletion, hypotension, SIRS/sepsis and obstructive uropathy. CT abdomen showed bilateral hydronephrosis. Creatinine in November 2018 was 2.1 which is likely his baseline. Continue IV fluids. Creatinine level increased to 3 today. Monitor renal function. Renal prognosis is guarded. Avoid nephrotoxic agents. Meds dosage based on GFR. 2. FEN: Hypernatremia, 151 today, continue D5W and DDAVP, monitor. Hyperkalemia, improved, monitor. Metabolic acidosis, monitor. Monitor lytes and volume status. 3. Bilateral hydronephrosis: Secondary to bladder retention. S/p duncan catheter. 4. Bilateral pneumonia: Pneumonia protocol. Supplemental oxygen, nebulizer therapy and IV antibiotic therapy. Follow blood culture. COVID positive. 5. SIRS / Sepsis: Likely 2/2 PNA. 6. Suspected COVID-19 virus infection. 7. Metabolic encephalopathy: Toxic metabolic, POA. 8. R foot wound, POA. - Subjective: Patient was seen and examined at the bedside. No acute events reported. - General Appearance General appearance: well-developed, appears stated age, not in distress HEENT: ATNC, YRN Neck: neck supple, trachea midline Respiratory: Clear to Ascultation Heart: regular, S1S2, no murmurs Gastrointestinal: soft, normoactive bowel sounds, not tender Integumentary: ulcer R foot sole Neurologic: alert, able to tell his name, able to move extremities, confused Ext: no edema, R flat foot, L BKA Subjective Date of service: 11/07/19 Principal diagnosis: ,+RAFAEL/CKD, bilateral pneumonia PUI?: Yes COVID19: Positive Objective - Vital Signs Vital signs: Vital Signs - 12hr 11/07/19 11/07/19 11/07/19 04:51 06:26 09:11 Temperature 98.1 F Pulse Rate Respiratory 16 16 Rate Blood Pressure Blood Pressure 106/68 [Left] O2 Sat by Pulse 84 95 Oximetry 11/07/19 11:20 Temperature 97.0 F L Pulse Rate 83 Respiratory 20 Rate Blood Pressure 107/63 Blood Pressure [Left] O2 Sat by Pulse 62 L Oximetry - Lab 10/31/19 05:32 11/07/19 05:17 Most recent lab results Calcium 8.9 mg/dL (8.4-10.2) 11/07/19 05:17 Phosphorus 3.70 mg/dL (2.5-4.5) 11/03/19 04:25 Magnesium 2.10 mg/dL (1.7-2.3) 10/29/19 06:59 Urine Creatinine 86.8 mg/dL (0.1-20.0) H 10/28/19 14:55 Urine Sodium 42 mmol/L 10/28/19 14:55 Medications & Allergies - Medications Allergies/Adverse Reactions: Allergies No Known Allergies Allergy (Verified 01/05/15 14:31) Home Medications: Home Medications Medication Instructions Recorded Confirmed Last Taken Type hydrALAZINE [Apresoline TAB] 25 mg PO Q8HR #90 tablet 08/25/14 11/01/19 12/08/18 21:00 Rx Pregabalin [Lyrica] 200 mg PO TID 05/29/16 11/01/19 12/08/18 21:00 History Adult Probiotic 1 tab PO DAILY 11/01/19 11/01/19 Unknown History Aspirin BABY CHEW TAB 81 mg PO DAILY 11/01/19 11/01/19 Unknown History Baby Vitamin D3 2,000 units PO DAILY 11/01/19 11/01/19 Unknown History Brimonidine Tartrate 0.2% 1 drop OU QHS 11/01/19 11/01/19 Unknown History Colchicine 0.6 mg PO BID 11/01/19 11/01/19 Unknown History DUONEB *Not for PRN Use* 0.5 - 2.5 mg INHALATION Q6HR PRN 11/01/19 11/01/19 Unknown History Hydrocodone-Acetamin 10-325/15 1 tab PO TID PRN 11/01/19 11/01/19 Unknown History Lipitor 10 mg PO QHS 11/01/19 11/01/19 Unknown History Loperamide 2 mg PO Q24HR PRN 11/01/19 11/01/19 Unknown History Metoprolol 25 mg PO DAILY 11/01/19 11/01/19 Unknown History Robitussin Cough-Chest Dm Liq 15 ml PO BID 11/01/19 11/01/19 Unknown History Sennosides [Senna] 8.6 mg PO Q24HR PRN 11/01/19 11/01/19 Unknown History Verapamil 180 mg PO BID 11/01/19 11/01/19 Unknown History traMADoL 50 mg PO Q6HR PRN 11/01/19 11/01/19 Unknown History Active Medications: Generic Name Dose Route Start Last Admin Trade Name Freq PRN Reason Stop Dose Admin Acetaminophen 650 mg 10/28/19 13:12 10/30/19 21:39 Tylenol PO 650 mg Q4H PRN Administration Pain MILD(1-3)/Fever >100.5/EDUARDO Acetaminophen/Codeine Phosphate 1 tab 10/28/19 13:14 11/07/19 04:59 Tylenol #3 PO 1 tab Q6H PRN Administration Pain, Moderate (4-6) Albuterol 2.5 mg 10/28/19 13:12 Proventil IH Q4HRT PRN Shortness Of Breath Desmopressin Acetate 0.1 mg 11/04/19 10:00 11/07/19 09:04 Ddavp PO 0.1 mg BID FAYE Administration Dextrose 50 ml 10/29/19 08:00 10/29/19 12:35 D50w (25gm) Syringe IV 50 ml Q30MIN PRN Administration Hypoglycemia Protocol Haloperidol Lactate 2 mg 11/06/19 13:13 11/07/19 01:11 Haldol IM 2 mg Q6H PRN Administration Agitation Dextrose 1,000 mls @ 125 mls/hr 10/31/19 08:00 11/07/19 01:11 D5w IV 75 mls/hr DIRECT FAYE Administration Ondansetron HCl 4 mg 10/28/19 13:12 Zofran IV Q8H PRN Nausea And Vomiting Potassium Chloride 20 meq 11/07/19 08:00 11/07/19 09:04 K-Dur PO 11/07/19 14:00 20 meq ONCE NR Administration Sodium Chloride 10 ml 10/28/19 22:00 11/07/19 09:04 Sodium Chloride Flush Syringe 10 Ml IV 10 ml BID FAYE Administration Sodium Chloride 10 ml 10/28/19 13:12 Sodium Chloride Flush Syringe 10 Ml IV PRN PRN LINE FLUSH
--- NOTE | 2019-11-07 14:30 | Progress Note ---
Assessment and Plan Cultures: Blood cultures 10/28/2019 no growth today. Urine cultures 10/28/2019 no growth today. Assessment: 51 year old male with history of chronic kidney disease, diabetes, previous diabetic foot infection status post left BKA, hypertension, resident of [facility], admitted on 10/28/2019 due to altered mental status with confusion and lethargy, generalized weakness, dry cough, diarrhea for a week: #Severe sepsis with MODS: fever resolved, likely due to bilateral pneumonia secondary to COVID +/- UTI. #COVID-19 pneumonia: COVID test POSITIVE. #Complicated UTI with severe bilateral hydro: s/p duncan #RAFAEL on CKD: Urinalysis showed more than 180 white blood cells with large leukocyte esterase. CT of the abdomen show severe hydroureteronephrosis with distended bladder. #Acute hypoxic respiratory failure: on oxygen. #Eleveted LFTs: from sepsis/ COVID. Recommendations: completed Cefepime completed Plaquenil continue supportive care Continue COVID isolation precautions per [facility] protocol Landen Giordano MD, FACP [facility] ([facility] C: [phone] O: [phone] F: [phone] Subjective Date of service: 11/07/19 Principal diagnosis: ,+RAFAEL/CKD, bilateral pneumonia Interval history: No fever. Remains hypoxic requiring oxygen. PUI?: Yes COVID19: Positive Objective - Exam Narrative Exam: Physical Exam (reviewed in chart due to PPE conservation) Constitutional: limited due to PPE conservation strategy Head, Ears, Nose: limited due to PPE conservation strategy Eyes: limited due to PPE conservation strategy Neck: limited due to PPE conservation strategy Oral: limited due to PPE conservation strategy Cardiovascular: limited due to PPE conservation strategy Respiratory: limited due to PPE conservation strategy GI: limited due to PPE conservation strategy Musculoskeletal: limited due to PPE conservation strategy Skin: limited due to PPE conservation strategy Hem/Lymphatic: limited due to PPE conservation strategy Psych: limited due to PPE conservation strategy Neurological: limited due to PPE conservation strategy - Constitutional Vitals: Vital Signs Temp Pulse Resp BP Pulse Ox 97.0 F L 83 20 107/63 62 L 11/07/19 11:20 11/07/19 11:20 11/07/19 11:20 11/07/19 11:20 04/13/20 11:20 Temperature -Last 24 Hours Temperature 97.0 F Temperature 98.1 F Temperature 97.9 F - Labs CBC & Chem 7: 10/31/19 05:32 11/07/19 05:17 Labs: Abnormal lab results 11/06/19 11/07/19 11/07/19 Range/Units 21:43 05:17 05:17 D-Dimer 3488 H (0-234) ng/mlDDU Sodium 146 H D (137-145) mmol/L Potassium 3.3 L (3.6-5.0) mmol/L Chloride 118.1 H (98-107) mmol/L Carbon Dioxide 17 L (22-30) mmol/L BUN 89 H (9-20) mg/dL Creatinine 2.6 H (0.8-1.5) mg/dL Glucose 242 H (75-100) mg/dL POC Glucose (70-105) Ferritin 815.0 H (13.0-400.0) ng/mL Lactate Dehydrogenase (91-180) units/L C-Reactive Protein (0.00-1.30) mg/dL 11/07/19 11/07/19 11/07/19 Range/Units 05:17 08:09 11:32 D-Dimer (0-234) ng/mlDDU Sodium 151 H (137-145) mmol/L Potassium 3.5 L (3.6-5.0) mmol/L Chloride 117.6 H (98-107) mmol/L Carbon Dioxide 17 L (22-30) mmol/L BUN 90 H (9-20) mg/dL Creatinine 3.0 H (0.8-1.5) mg/dL Glucose 170 H (75-100) mg/dL POC Glucose 147 H 152 H (70-105) Ferritin (13.0-400.0) ng/mL Lactate Dehydrogenase 450 H (91-180) units/L C-Reactive Protein 14.10 H (0.00-1.30) mg/dL
[2019-11-08 08:38] LABS: Calcium 8.4 mg/dL (8.4-10.2)
[2019-11-08] MEDS: ENOXAPARIN 40 MG/0.4 ML INJ SUB-Q SCH (09:06)
[2019-11-08] MEDS: DESMOPRESSIN 0.1 MG TAB PO SCH ×2 (09:07→21:10)
[2019-11-08] MEDS ORDERED: ENOXAPARIN 30 MG/0.3 ML INJ SUB-Q SCH (10:00)
--- NOTE | 2019-11-08 10:55 | Progress Note ---
Assessment and Plan 1. Acute kidney injury: Likely vasomotor RAFAEL superimposed on CKD stage 3 in the setting of volume depletion, hypotension, SIRS/sepsis and obstructive uropathy. CT abdomen showed bilateral hydronephrosis. Creatinine in November 2018 was 2.1 which is likely his baseline. Continue IV fluids. Creatinine level is improving. Monitor renal function. Avoid nephrotoxic agents. Meds dosage based on GFR. 2. FEN: Hypernatremia, 143 today, continue D5W and DDAVP, monitor. Hyperkalemia, improved, monitor. Metabolic acidosis, monitor. Monitor lytes and volume status. 3. Bilateral hydronephrosis: Secondary to bladder retention. S/p duncan catheter. 4. Bilateral pneumonia: Pneumonia protocol. Supplemental oxygen, nebulizer therapy and IV antibiotic therapy. Follow blood culture. COVID positive. 5. SIRS / Sepsis: Likely 2/2 PNA. 6. Suspected COVID-19 virus infection. 7. Metabolic encephalopathy: Toxic metabolic, POA. 8. R foot wound, POA. - Subjective: Patient was seen and examined at the bedside. No acute events reported. - General Appearance General appearance: well-developed, appears stated age, not in distress HEENT: ATNC, YRN Neck: neck supple, trachea midline Respiratory: Clear to Ascultation Heart: regular, S1S2, no murmurs Gastrointestinal: soft, normoactive bowel sounds, not tender Integumentary: ulcer R foot sole Neurologic: alert, able to tell his name, able to move extremities, confused Ext: no edema, R flat foot, L BKA Subjective Date of service: 11/08/19 Principal diagnosis: ,+RAFAEL/CKD, bilateral pneumonia PUI?: Yes COVID19: Positive Objective - Vital Signs Vital signs: Vital Signs - 12hr 11/08/19 11/08/19 04:48 10:00 Temperature 97.8 F Respiratory 18 Rate Blood Pressure 124/76 O2 Sat by Pulse 93 Oximetry - Lab 10/31/19 05:32 11/09/19 04:21 Most recent lab results Calcium 8.4 mg/dL (8.4-10.2) 11/08/19 07:45 Phosphorus 3.70 mg/dL (2.5-4.5) 11/03/19 04:25 Magnesium 2.10 mg/dL (1.7-2.3) 10/29/19 06:59 Urine Creatinine 86.8 mg/dL (0.1-20.0) H 10/28/19 14:55 Urine Sodium 42 mmol/L 10/28/19 14:55 Medications & Allergies - Medications Allergies/Adverse Reactions: Allergies No Known Allergies Allergy (Verified 01/05/15 14:31) Home Medications: Home Medications Medication Instructions Recorded Confirmed Last Taken Type hydrALAZINE [Apresoline TAB] 25 mg PO Q8HR #90 tablet 08/25/14 11/01/19 12/08/18 21:00 Rx Pregabalin [Lyrica] 200 mg PO TID 05/29/16 11/01/19 12/08/18 21:00 History Adult Probiotic 1 tab PO DAILY 11/01/19 11/01/19 Unknown History Aspirin BABY CHEW TAB 81 mg PO DAILY 11/01/19 11/01/19 Unknown History Baby Vitamin D3 2,000 units PO DAILY 11/01/19 11/01/19 Unknown History Brimonidine Tartrate 0.2% 1 drop OU QHS 11/01/19 11/01/19 Unknown History Colchicine 0.6 mg PO BID 11/01/19 11/01/19 Unknown History DUONEB *Not for PRN Use* 0.5 - 2.5 mg INHALATION Q6HR PRN 11/01/19 11/01/19 Unknown History Lipitor 10 mg PO QHS 11/01/19 11/01/19 Unknown History Sennosides [Senna] 8.6 mg PO Q24HR PRN 11/01/19 11/01/19 Unknown History traMADoL 50 mg PO Q6HR PRN 11/01/19 11/01/19 Unknown History Desmopressin [Ddavp] 0.1 mg PO BID tablet 11/09/19 Unknown Rx Active Medications: Generic Name Dose Route Start Last Admin Trade Name Freq PRN Reason Stop Dose Admin Acetaminophen 650 mg 10/28/19 13:12 10/30/19 21:39 Tylenol PO 650 mg Q4H PRN Administration Pain MILD(1-3)/Fever >100.5/EDUARDO Acetaminophen/Codeine Phosphate 1 tab 10/28/19 13:14 11/07/19 23:26 Tylenol #3 PO 1 tab Q6H PRN Administration Pain, Moderate (4-6) Albuterol 2.5 mg 10/28/19 13:12 Proventil IH Q4HRT PRN Shortness Of Breath Desmopressin Acetate 0.1 mg 11/04/19 10:00 11/08/19 09:07 Ddavp PO 0.1 mg BID FAYE Administration Dextrose 50 ml 10/29/19 08:00 10/29/19 12:35 D50w (25gm) Syringe IV 50 ml Q30MIN PRN Administration Hypoglycemia Protocol Enoxaparin Sodium 40 mg 11/08/19 10:00 11/08/19 09:06 Enoxaparin SUB-Q 40 mg QDAY@1000 FAYE Administration Haloperidol Lactate 2 mg 11/06/19 13:13 11/07/19 01:11 Haldol IM 2 mg Q6H PRN Administration Agitation Dextrose 1,000 mls @ 125 mls/hr 10/31/19 08:00 11/07/19 16:24 D5w IV 75 mls/hr DIRECT FAYE Administration Ondansetron HCl 4 mg 10/28/19 13:12 Zofran IV Q8H PRN Nausea And Vomiting Sodium Chloride 10 ml 10/28/19 22:00 11/08/19 09:07 Sodium Chloride Flush Syringe 10 Ml IV 10 ml BID FAYE Administration Sodium Chloride 10 ml 10/28/19 13:12 Sodium Chloride Flush Syringe 10 Ml IV PRN PRN LINE FLUSH
--- NOTE | 2019-11-08 14:15 | Progress Note ---
Assessment and Plan Assessment and plan: --Severe sepsis due to COVID-19 positive bilateral pneumonia. Current Visit: Yes Status: Acute Very poor prognosis s/p empiric IV antibiotic therapy, Covid test positive. Oxygen titrate O2 sats to more than 90%. Completed IV cefepime, hydro-chloroquine and zinc per ID D-dimer, LDH, procalcitonin, ferritin level, --Metabolic encephalopathy /severe agitation Current Visit: Yes Status: Acute Haldol IM as needed, restraint for safety Psych consult if no improvement --Right upper extremity swelling: Current Visit: Yes Status: Acute Venous Doppler negative for DVT, superficial thrombosis Supportive care, --Elevated D-dimers; Patient had CT chest on 10/28/2019, bilateral pneumonia --RAFAEL (acute kidney injury) on CKD Current Visit: Yes Status: Acute Due to vasomotor nephropathy, gentle hydration, avoid nephrotoxins. Nephrology following, monitor renal function --Hyponatremia resolved Current Visit: Yes Status: Acute Sodium levels overcorrected/hypernatremia Change IV fluids to D5 W, monitor sodium levels --Acidosis Current Visit: Yes Status: Acute Aggressive IV fluid resuscitation therapy, supportive care, Closely monitor -- Hypokalemia Current Visit: Yes Status: Acute Potassium supplemented, follow potassium levels --sacral decubitus ulcer/stage IV Current Visit: Yes Status: Acute Patient has a chronic sacral stage IV ulcer with mild necrotic area and no purulence, also right plantar wound, both chronic not infected. Wound care on board. Off loading is mainstay therapy. --DVT prophylaxis Current Visit: Yes Status: Acute SCD to bilateral lower extremities while in bed, prophylactic heparin. --Full code Current Visit: Yes Status: Acute Patient is full code, Plan of care reviewed with the patient, and his nurse Isolation precautions; contact and droplet isolation inplace History Interval history: I have seen and examined the patient at bedside this afternoon Contact and droplet isolation precautions observed PPE used before entering the patient's room per protocol Patient chronically and severely working, in moderate distress Emaciated and cachectic Vital signs noted PUI?: Yes COVID19: Positive Hospitalist Physical - Constitutional Vitals: Temp Pulse Resp BP Pulse Ox 97.2 F L 81 20 101/66 93 11/08/19 11:48 11/07/19 21:08 11/08/19 11:48 11/08/19 11:48 11/08/19 10:00 General appearance: Present: mild distress, well-nourished, cachectic, di sheveled - EENT Eyes: Present: PERRL, EOM intact - Neck Neck: Present: supple, normal ROM - Respiratory Respiratory effort: normal Respiratory: bilateral: diminished, negative: rales, rhonchi, wheezing - Cardiovascular Rhythm: regular Heart Sounds: Present: S1 & S2 - Extremities Extremities: pulses intact - Abdominal General gastrointestinal: soft, non-tender, non-distended, normal bowel sounds - Integumentary Integumentary: Present: clear, warm - Psychiatric Psychiatric: other (Confused minimally communicative) - Neurologic Neurologic: moves all extremities Results - Labs CBC & Chem 7: 10/31/19 05:32 11/08/19 07:45 Labs: Laboratory Last Values WBC 6.0 K/mm3 (4.5-11.0) 10/31/19 05:32 RBC 4.95 M/mm3 (3.65-5.03) 10/31/19 05:32 Hgb 12.6 gm/dl (11.8-15.2) 10/31/19 05:32 Hct 39.9 % (35.5-45.6) 10/31/19 05:32 MCV 81 fl (84-94) L 10/31/19 05:32 MCH 26 pg (28-32) L 10/31/19 05:32 MCHC 32 % (32-34) 10/31/19 05:32 RDW 20.4 % (13.2-15.2) H 10/31/19 05:32 Plt Count 126 K/mm3 (140-440) L 10/31/19 05:32 Lymph % (Auto) 17.4 % (13.4-35.0) 10/30/19 08:01 [place] % (Auto) 7.9 % (0.0-7.3) H 10/30/19 08:01 Eos % (Auto) 0.1 % (0.0-4.3) 10/30/19 08:01 Baso % (Auto) 0.5 % (0.0-1.8) 10/30/19 08:01 Lymph # 1.1 K/mm3 (1.2-5.4) L 10/30/19 08:01 [place] # 0.5 K/mm3 (0.0-0.8) 10/30/19 08:01 Eos # 0.0 K/mm3 (0.0-0.4) 10/30/19 08:01 Baso # 0.0 K/mm3 (0.0-0.1) 10/30/19 08:01 Add Manual Diff Complete 10/31/19 05:32 Total Counted 100 10/31/19 05:32 Seg Neutrophils % 74.1 % (40.0-70.0) H 10/30/19 08:01 Seg Neuts % (Manual) 80.0 % (40.0-70.0) H 10/31/19 05:32 Band Neutrophils % 0 % 10/31/19 05:32 Lymphocytes % (Manual) 13.0 % (13.4-35.0) L 10/31/19 05:32 Reactive Lymphs % (Man) 0 % 10/31/19 05:32 Monocytes % (Manual) 6.0 % (0.0-7.3) 10/31/19 05:32 Eosinophils % (Manual) 1.0 % (0.0-4.3) 10/31/19 05:32 Basophils % (Manual) 0 % (0.0-1.8) 10/31/19 05:32 Metamyelocytes % 0 % 10/31/19 05:32 Myelocytes % 0 % 10/31/19 05:32 Promyelocytes % 0 % 10/31/19 05:32 Blast Cells % 0 % 10/31/19 05:32 Nucleated RBC % 2.0 % (0.0-0.9) H 10/31/19 05:32 Seg Neutrophils # 4.9 K/mm3 (1.8-7.7) 10/30/19 08:01 Seg Neutrophils # Man 4.8 K/mm3 (1.8-7.7) 10/31/19 05:32 Band Neutrophils # 0.0 K/mm3 10/31/19 05:32 Lymphocytes # (Manual) 0.8 K/mm3 (1.2-5.4) L 10/31/19 05:32 Abs React Lymphs (Man) 0.0 K/mm3 10/31/19 05:32 Monocytes # (Manual) 0.4 K/mm3 (0.0-0.8) 10/31/19 05:32 Eosinophils # (Manual) 0.1 K/mm3 (0.0-0.4) 10/31/19 05:32 Basophils # (Manual) 0.0 K/mm3 (0.0-0.1) 10/31/19 05:32 Metamyelocytes # 0.0 K/mm3 10/31/19 05:32 Myelocytes # 0.0 K/mm3 10/31/19 05:32 Promyelocytes # 0.0 K/mm3 10/31/19 05:32 Blast Cells # 0.0 K/mm3 10/31/19 05:32 WBC Morphology Not Reportable 10/31/19 05:32 Hypersegmented Neuts Not Reportable 10/31/19 05:32 Hyposegmented Neuts Not Reportable 10/31/19 05:32 Hypogranular Neuts Not Reportable 10/31/19 05:32 Smudge Cells Not Reportable 10/31/19 05:32 Toxic Granulation Not Reportable 10/31/19 05:32 Toxic Vacuolation Not Reportable 10/31/19 05:32 Dohle Bodies Not Reportable 10/31/19 05:32 Pelger-Huet Anomaly Not Reportable 10/31/19 05:32 [place] Rods Not Reportable 10/31/19 05:32 Platelet Estimate Consistent w auto 10/31/19 05:32 Clumped Platelets Not Reportable 10/31/19 05:32 Plt Clumps, EDTA Not Reportable 10/31/19 05:32 Large Platelets Not Reportable 10/31/19 05:32 Giant Platelets Not Reportable 10/31/19 05:32 Platelet Satelliting Not Reportable 10/31/19 05:32 Plt Morphology Comment Not Reportable 10/31/19 05:32 RBC Morphology Not Reportable 10/31/19 05:32 Dimorphic RBCs Not Reportable 10/31/19 05:32 Polychromasia Not Reportable 10/31/19 05:32 Hypochromasia Few 10/31/19 05:32 Poikilocytosis Not Reportable 10/31/19 05:32 Anisocytosis 1+ 10/31/19 05:32 Microcytosis Not Reportable 10/31/19 05:32 Macrocytosis Not Reportable 10/31/19 05:32 Spherocytes Not Reportable 10/31/19 05:32 Pappenheimer Bodies Not Reportable 10/31/19 05:32 Sickle Cells Not Reportable 10/31/19 05:32 Target Cells Not Reportable 10/31/19 05:32 Tear Drop Cells Not Reportable 10/31/19 05:32 Ovalocytes Not Reportable 10/31/19 05:32 Helmet Cells Not Reportable 10/31/19 05:32 [place] Bodies Not Reportable 10/31/19 05:32 [place] Rings Not Reportable 10/31/19 05:32 Aric Cells Not Reportable 10/31/19 05:32 Bite Cells Not Reportable 10/31/19 05:32 Crenated Cell Not Reportable 10/31/19 05:32 Elliptocytes Not Reportable 10/31/19 05:32 Acanthocytes (Spur) Not Reportable 10/31/19 05:32 Rouleaux Not Reportable 10/31/19 05:32 Hemoglobin C Crystals Not Reportable 10/31/19 05:32 Schistocytes Not Reportable 10/31/19 05:32 Malaria parasites Not Reportable 10/31/19 05:32 Aristides Bodies Not Reportable 10/31/19 05:32 Hem Pathologist Commnt No 10/31/19 05:32 D-Dimer 3488 ng/mlDDU (0-234) H 11/07/19 05:17 Sodium 143 mmol/L (137-145) D 11/08/19 07:45 Potassium 3.7 mmol/L (3.6-5.0) 11/08/19 07:45 Chloride 111.2 mmol/L (98-107) H 11/08/19 07:45 Carbon Dioxide 16 mmol/L (22-30) L 11/08/19 07:45 Anion Gap 20 mmol/L 11/08/19 07:45 BUN 66 mg/dL (9-20) H 11/08/19 07:45 Creatinine 2.0 mg/dL (0.8-1.5) H 11/08/19 07:45 Estimated GFR 42 ml/min 11/08/19 07:45 BUN/Creatinine Ratio 33 % 11/08/19 07:45 Glucose 92 mg/dL (75-100) 11/08/19 07:45 POC Glucose 152 (70-105) H 11/07/19 11:32 Lactic Acid 1.00 mmol/L (0.7-2.0) 10/28/19 15:25 Calcium 8.4 mg/dL (8.4-10.2) 11/08/19 07:45 Phosphorus 3.70 mg/dL (2.5-4.5) 11/03/19 04:25 Magnesium 2.10 mg/dL (1.7-2.3) 10/29/19 06:59 Ferritin 815.0 ng/mL (13.0-400.0) H 11/07/19 05:17 Total Bilirubin 0.40 mg/dL (0.1-1.2) 10/31/19 05:32 Direct Bilirubin < 0.2 mg/dL (0-0.2) 10/28/19 11:22 Indirect Bilirubin 0.2 mg/dL 10/28/19 11:22 AST 267 units/L (5-40) H 10/31/19 05:32 ALT 77 units/L (7-56) H 10/31/19 05:32 Alkaline Phosphatase 82 units/L (35-129) 10/31/19 05:32 Lactate Dehydrogenase 450 units/L (91-180) H 11/07/19 05:17 C-Reactive Protein 14.10 mg/dL (0.00-1.30) H 11/07/19 05:17 Total Protein 7.3 g/dL (6.3-8.2) D 10/31/19 05:32 Albumin 2.0 g/dL (3.9-5) L 10/31/19 05:32 Albumin/Globulin Ratio 0.4 % 10/31/19 05:32 Lipase 89 units/L (13-60) H 10/28/19 11:22 Procalcitonin 91.05 ng/mL (<0.15) 10/28/19 13:31 PTH Intact 120.0 pg/mL (15-65) H 10/29/19 06:59 Urine Color Yellow (Yellow) 10/29/19 00:47 Urine Turbidity Cloudy (Clear) 10/29/19 00:47 Urine pH 6.0 (5.0-7.0) 10/29/19 00:47 Ur Specific [place] 1.010 (1.003-1.030) 10/29/19 00:47 Urine Protein 30 mg/dl mg/dL (Negative) 10/29/19 00:47 Urine Glucose (UA) Neg mg/dL (Negative) 10/29/19 00:47 Urine Ketones Neg mg/dL (Negative) 10/29/19 00:47 Urine Blood Lg (Negative) 10/29/19 00:47 Urine Nitrite Pos (Negative) 10/29/19 00:47 Urine Bilirubin Neg (Negative) 10/29/19 00:47 Urine Urobilinogen < 2.0 mg/dL (<2.0) 10/29/19 00:47 Ur Leukocyte Esterase Lg (Negative) 10/29/19 00:47 Urine WBC (Auto) > 182.0 /HPF (0.0-6.0) H 10/29/19 00:47 Urine RBC (Auto) 58.0 /HPF (0.0-6.0) 10/29/19 00:47 U Epithel Cells (Auto) < 1.0 /HPF (0-13.0) 10/29/19 00:47 Urine Bacteria (Auto) 4+ /HPF (Negative) 10/29/19 00:47 Urine WBC Clumps 2+ /HPF 10/28/19 14:55 Urine Mucus Few /HPF 10/28/19 14:55 Urine Yeast (Budding) 2+ /HPF 10/28/19 14:55 Urine Osmolality 364 Mosm/kg 11/04/19 21:10 Urine Creatinine 86.8 mg/dL (0.1-20.0) H 10/28/19 14:55 Urine Sodium 42 mmol/L 10/28/19 14:55 Influenza A (Rapid) Negative (Negative) 11/01/19 15:30 Influenza A (RT-PCR) Negative (Negative) 11/01/19 15:30 Influenza B (Rapid) Negative (Negative) 11/01/19 15:30 Influenza B (RT-PCR) Negative (Negative) 11/01/19 15:30 Miscellaneous Test See scanned result 11/01/19 Unknown [place]/IV: Voiding Method Indwelling Catheter IV Catheter Type [Right INT / Saline Lock Forearm] IV Catheter Type [Left Wrist] Peripheral IV IV Catheter Type [Right Hand] Peripheral IV Active Medications - Current Medications Current Medications: Generic Name Dose Route Start Last Admin Trade Name Freq PRN Reason Stop Dose Admin Acetaminophen 650 mg 10/28/19 13:12 10/30/19 21:39 Tylenol PO 650 mg Q4H PRN Administration Pain MILD(1-3)/Fever >100.5/EDUARDO Acetaminophen/Codeine Phosphate 1 tab 10/28/19 13:14 11/07/19 23:26 Tylenol #3 PO 1 tab Q6H PRN Administration Pain, Moderate (4-6) Albuterol 2.5 mg 10/28/19 13:12 Proventil IH Q4HRT PRN Shortness Of Breath Desmopressin Acetate 0.1 mg 11/04/19 10:00 11/08/19 09:07 Ddavp PO 0.1 mg BID FAYE Administration Dextrose 50 ml 10/29/19 08:00 10/29/19 12:35 D50w (25gm) Syringe IV 50 ml Q30MIN PRN Administration Hypoglycemia Protocol Enoxaparin Sodium 40 mg 11/08/19 10:00 11/08/19 09:06 Enoxaparin SUB-Q 40 mg QDAY@1000 FAYE Administration Haloperidol Lactate 2 mg 11/06/19 13:13 11/07/19 01:11 Haldol IM 2 mg Q6H PRN Administration Agitation Dextrose 1,000 mls @ 125 mls/hr 10/31/19 08:00 11/07/19 16:24 D5w IV 75 mls/hr DIRECT FAYE Administration Ondansetron HCl 4 mg 10/28/19 13:12 Zofran IV Q8H PRN Nausea And Vomiting Sodium Chloride 10 ml 10/28/19 22:00 11/08/19 09:07 Sodium Chloride Flush Syringe 10 Ml IV 10 ml BID FAYE Administration Sodium Chloride 10 ml 10/28/19 13:12 Sodium Chloride Flush Syringe 10 Ml IV PRN PRN LINE FLUSH Nutrition/Malnutrition Assess - Dietary Evaluation Nutrition/Malnutrition Findings: Nutrition Notes Start: 10/29/19 08:36 Freq: Status: Active Protocol: Document 11/03/19 11:28 LM (Rec: 11/03/19 11:45 LM [email or web address]) Nutrition Notes Initial or Follow up Reassessment Current Diagnosis Acute Kidney Injury,Decubitus( Pressure Ulcer),Diabetes, Hypertension Other Pertinent Diagnosis Sacral and heel wound, pneu Current Diet Cardiac Labs/Tests Na 154 BUN 70 Cr 2.0 Pertinent Medications Reviewed Height 6 ft 2 in Weight 88.5 kg [place] Body Weight (kg) 86.36 BMI 25.0 Weight Status Overweight Subjective/Other Information Per RN pt is not eating well ( 25% of breakfast) but drink Ensure High Protein 3x/day. Percent of energy/protein needs met: 47%/61% Burn Absent Trauma Absent Current % PO Poor (25-49%) Minimum of two criteria No Fluid Accumulation Moderate to Severe (severe) #2 Nutrition Diagnosis Inadequate oral intake Etiology COVID-19 infection, chronic illness As Evidenced by Signs and Symptoms pt with poor intakes #1 Nutrition Diagnosis Increased nutrient needs ( specify in comment below) Diagnosis Progress(for reassessment Continues documentation) Is patient on ventilator? No Is Patient Ambulatory and/or Out of Bed No REE-([facility]-confined to bed) 2134.212 Calculation Used for Recommendations [facility] Additional Notes Protein needs are 113-136g (1. 2-1.5g/kg) Fluid needs are 1ml/kcal Nutrition Intervention Change Diet Order: Cardiac Add Supplement/Snack (indicate name/kcal Ensure High protein TID /protein ) Provides kCal: 480 Provides Protein (gm) 48 Goal #1 Meet at least 80% of kcal and protein needs Goal #2 Wound healing Anticipated Discharge Needs: Cardiac diet with ONS BID Follow-Up By: 11/14/19 Additional Comments F/U for PO/ONS intakes
--- NOTE | 2019-11-08 14:25 | Progress Note ---
Assessment and Plan Cultures: Blood cultures 10/28/2019 no growth today. Urine cultures 10/28/2019 no growth today. Assessment: 51 year old male with history of chronic kidney disease, diabetes, previous diabetic foot infection status post left BKA, hypertension, resident of [facility], admitted on 10/28/2019 due to altered mental status with confusion and lethargy, generalized weakness, dry cough, diarrhea for a week: #Severe sepsis with MODS: fever resolved, likely due to bilateral pneumonia secondary to COVID +/- UTI. #COVID-19 pneumonia: COVID test POSITIVE. #Complicated UTI with severe bilateral hydro: s/p duncan #RAFAEL on CKD: Urinalysis showed more than 180 white blood cells with large leukocyte esterase. CT of the abdomen show severe hydroureteronephrosis with distended bladder. #Acute hypoxic respiratory failure: on oxygen. #Eleveted LFTs: from sepsis/ COVID. Recommendations: completed Cefepime, Plaquenil trend d-dimer, ferritin, LDH and CRP tomorrow along with CBC. If oxygen requirements remain stable and markers show improving trend, can consider discharge with home oxygen. Landen Giordano MD, FACP [facility] ([facility] C: [phone] O: [phone] F: [phone] Subjective Date of service: 11/08/19 Principal diagnosis: ,+RAFAEL/CKD, bilateral pneumonia Interval history: No fever. Remains on oxygen. PUI?: Yes COVID19: Positive Objective - Exam Narrative Exam: Physical Exam (reviewed in chart due to PPE conservation) Constitutional: limited due to PPE conservation strategy Head, Ears, Nose: limited due to PPE conservation strategy Eyes: limited due to PPE conservation strategy Neck: limited due to PPE conservation strategy Oral: limited due to PPE conservation strategy Cardiovascular: limited due to PPE conservation strategy Respiratory: limited due to PPE conservation strategy GI: limited due to PPE conservation strategy Musculoskeletal: limited due to PPE conservation strategy Skin: limited due to PPE conservation strategy Hem/Lymphatic: limited due to PPE conservation strategy Psych: limited due to PPE conservation strategy Neurological: limited due to PPE conservation strategy - Constitutional Vitals: Vital Signs Temp Pulse Resp BP Pulse Ox 97.2 F L 81 20 101/66 93 11/08/19 11:48 11/07/19 21:08 11/08/19 11:48 11/08/19 11:48 11/08/19 10:00 Temperature -Last 24 Hours Temperature 97.2 F Temperature 97.8 F Temperature 98.1 F Temperature 99.7 F - Labs CBC & Chem 7: 10/31/19 05:32 11/08/19 07:45 Labs: Abnormal lab results 11/08/19 Range/Units 07:45 Chloride 111.2 H (98-107) mmol/L Carbon Dioxide 16 L (22-30) mmol/L BUN 66 H (9-20) mg/dL Creatinine 2.0 H (0.8-1.5) mg/dL
[2019-11-08] MEDS: ACETAMINOPHEN W/CODEINE 300-30 MG TAB PO PRN (17:26)
[2019-11-08] MEDS: HALOPERIDOL LACTATE 5 MG/1 ML INJ IM PRN (21:10)
[2019-11-08] MEDS: ACETAMINOPHEN 325 MG TAB PO PRN (21:11)
[2019-11-08] MEDS: DEXTROSE 5% IN WATER 1,000 ML IV SCH (21:13)
[2019-11-09 05:04] LABS: Calcium 8.2 mg/dL (8.4-10.2)
[2019-11-09 05:17] LABS: C-Reactive Protein 11.4 mg/dL (0.00-1.30)
[2019-11-09] MEDS: ENOXAPARIN 40 MG/0.4 ML INJ SUB-Q SCH (09:13)
[2019-11-09] MEDS: DESMOPRESSIN 0.1 MG TAB PO SCH (09:13)
[2019-11-09] MEDS: DEXTROSE 5% IN WATER 1,000 ML IV SCH (09:22)
[2019-11-09] MEDS ORDERED: POTASSIUM CHLORIDE ER 20 MEQ TAB PO NR (11:17)
--- NOTE | 2019-11-09 12:57 | Progress Note ---
Assessment and Plan Cultures: Blood cultures 10/28/2019 no growth Urine cultures 10/28/2019 no growth Assessment: 51 year old male with history of chronic kidney disease, diabetes, previous diabetic foot infection status post left BKA, hypertension, resident of [facility], admitted on 10/28/2019 due to altered mental status with confusion and lethargy, generalized weakness, dry cough, diarrhea for a week: #Severe sepsis with MODS: fever resolved, likely due to bilateral pneumonia secondary to COVID +/- UTI. #COVID-19 pneumonia: COVID test POSITIVE. #Complicated UTI with severe bilateral hydro: s/p duncan #RAFAEL on CKD: Urinalysis showed more than 180 white blood cells with large leukocyte esterase. CT of the abdomen show severe hydroureteronephrosis with distended bladder. Creatinine trending down. #Acute hypoxic respiratory failure: on oxygen. #Elevated LFTs: from sepsis/ COVID. Recommendations: Oxygen requirements remain stable and markers show improving trend, OK for discharge from ID standpoint. Eval for home oxygen prior to discharge Home isolation for 7 days or 72 hours after complete resolution of symptoms, whichever is longer Follow up with PCP d/w Dr. Hong. Landen Giordano MD, FACP [facility] ([facility] C: [phone] O: [phone] F: [phone] Subjective Date of service: 11/09/19 Principal diagnosis: ,+RAFAEL/CKD, bilateral pneumonia Interval history: No fever. Remains on oxygen. Markers trending down. PUI?: Yes COVID19: Positive Objective - Exam Narrative Exam: Physical Exam (reviewed in chart due to PPE conservation) Constitutional: limited due to PPE conservation strategy Head, Ears, Nose: limited due to PPE conservation strategy Eyes: limited due to PPE conservation strategy Neck: limited due to PPE conservation strategy Oral: limited due to PPE conservation strategy Cardiovascular: limited due to PPE conservation strategy Respiratory: limited due to PPE conservation strategy GI: limited due to PPE conservation strategy Musculoskeletal: limited due to PPE conservation strategy Skin: limited due to PPE conservation strategy Hem/Lymphatic: limited due to PPE conservation strategy Psych: limited due to PPE conservation strategy Neurological: limited due to PPE conservation strategy - Constitutional Vitals: Vital Signs Temp Pulse Resp BP Pulse Ox 99.1 F 92 H 20 101/57 95 11/09/19 06:28 11/08/19 21:38 11/09/19 06:28 11/09/19 06:28 11/09/19 10:00 Temperature -Last 24 Hours Temperature 99.1 F Temperature 98.2 F Temperature 97.3 F - Labs CBC & Chem 7: 10/31/19 05:32 11/09/19 04:21 Labs: Abnormal lab results 11/09/19 11/09/19 11/09/19 Range/Units 04:21 04:21 04:21 D-Dimer 1922.72 H (0-234) ng/mlDDU Potassium 3.4 L (3.6-5.0) mmol/L Chloride 112.1 H (98-107) mmol/L Carbon Dioxide 19 L (22-30) mmol/L BUN 54 H (9-20) mg/dL Creatinine 1.9 H (0.8-1.5) mg/dL Calcium 8.2 L (8.4-10.2) mg/dL Ferritin 577.6 H (13.0-400.0) ng/mL Lactate Dehydrogenase 352 H (91-180) units/L C-Reactive Protein 11.40 H (0.00-1.30) mg/dL
--- NOTE | 2019-11-09 14:30 | Discharge Summary ---
Providers - Providers Date of Admission: 10/28/19 13:12 Date of discharge: 11/09/19 Attending physician: ALECIA SHEA 10/28/19 13:40 Consult to Physician [CONS] Routine Comment: Consulting Provider: VIKTOR BREWER Physician Instructions: Reason For Exam: RAFAEL/Nonoliguric renal failure 10/29/19 01:40 Consult to Wound/ET Nurse [CONS] Routine Reason For Exam: wound eval 10/30/19 13:12 Consult to Physician [CONS] Routine Comment: Consulting Provider: WYATT SUAREZ Physician Instructions: Reason For Exam: Bilateral pneumonia Primary care physician: I O PSYCHOLOGIST Hospitalization Reason for admission: Altered level of consciousness, bilateral pneumonia, respiratory failure Condition: Fair Pertinent studies: CT abdomen and pelvis CT chest Lower extremity venous Doppler Hospital course: 59 YO Male a Resident at [facility] with DM , peripheral vascular disease S/P L BKA, HTN, CKD 3, Sarcoidosis was admitted through with altered level of consciousness and confusion, increased weakness, dry cough, and multiple loose stools over the past week with worsening of the miss of breath over the last 2 days. subsequently transported to [facility] for further evaluation and care. Initial evaluation in the emergency department. Revealed that patient was found to have bilateral diffuse infiltrates on his chest x-ray consistent with bilateral interstitial pneumonia commonly seen with COVID19 infection, acute kidney injury with concomitant chronic kidney disease, metabolic acidosis, metabolic encephalopathy. Patient was admitted to rule out COVID, placed on contact and droplet isolation, COVID test was sent which was positive, evaluated by ID pulmonary nephrology, medications optimized, treated per COVID-19 protocols. Patient also had bladder outlet obstruction and urinary retention for which he received Coburn catheter with significant improvement Discharge the patient back to skilled nursing with Coburn intact, advised bladder training and removal of Coburn if patient tolerates And consider urology consult as outpatient for further evaluation and management 3 patient is comfortable no new complaints vital signs stable Physical exam is unremarkable Hemodynamically and clinically stable for discharge ID recommend 7 days of self-isolation or --Severe sepsis due to COVID-19 positive bilateral pneumonia. Current Visit: Yes Status: Acute Very poor prognosis s/p empiric IV antibiotic therapy, Covid test positive. Oxygen titrate O2 sats to more than 90%. Completed IV cefepime, hydro-chloroquine and zinc per ID D-dimer, LDH, procalcitonin, ferritin level, Markers trending down, cleared by ID for discharge back to SNF --Metabolic encephalopathy /severe agitation Current Visit: Yes Status: Acute Resolved, back to baseline --Right upper extremity swelling: Current Visit: Yes Status: Acute Venous Doppler negative for DVT, superficial thrombosis Resolved --Elevated D-dimers; Patient had CT chest on 10/28/2019, bilateral pneumonia --RAFAEL (acute kidney injury) on CKD Current Visit: Yes Status: Acute Due to vasomotor nephropathy, gentle hydration, avoid nephrotoxins. Nephrology following, monitor renal function --Hyponatremia resolved Current Visit: Yes Status: Acute Sodium levels overcorrected/hypernatremia Change IV fluids to D5 W, monitor sodium levels --Acidosis Current Visit: Yes Status: Acute Aggressive IV fluid resuscitation therapy, supportive care, Closely monitor -- Hypokalemia Current Visit: Yes Status: Acute Potassium supplemented, follow potassium levels --sacral decubitus ulcer/stage IV Current Visit: Yes Status: Acute Patient has a chronic sacral stage IV ulcer with mild necrotic area and no purulence, also right plantar wound, both chronic not infected. Wound care on board. Off loading is mainstay therapy. --DVT prophylaxis Current Visit: Yes Status: Acute SCD to bilateral lower extremities while in bed, prophylactic heparin. --Full code Current Visit: Yes Status: Acute Patient is full code, Plan of care reviewed with the patient, and his nurse Disposition: DC/[place]-03 [facility] Time spent for discharge: 32 min Core Measure Documentation - Palliative Care Palliative Care/ Comfort Measures: Not Applicable - Core Measures Any of the following diagnoses?: none Exam - Constitutional Vitals: Temp Pulse Resp BP Pulse Ox 97.3 F L 94 H 20 122/64 92 11/09/19 11:56 11/09/19 11:56 11/09/19 11:56 11/09/19 11:56 11/09/19 11:56 General appearance: Present: no acute distress, cachectic, disheveled - EENT Eyes: Present: PERRL, EOM intact - Neck Neck: Present: supple, normal ROM - Respiratory Respiratory effort: normal Respiratory: bilateral: diminished, negative: rales, rhonchi, wheezing - Cardiovascular Rhythm: regular Heart Sounds: Present: S1 & S2 - Extremities Extremities: no ischemia, No edema, abnormal (Status post BKA) - Abdominal General gastrointestinal: Present: soft, non-tender, non-distended, normal bowel sounds - Integumentary Integumentary: Present: clear, warm - Musculoskeletal Musculoskeletal: generalized weakness - Psychiatric Psychiatric: appropriate mood/affect, cooperative - Neurologic Neurologic: moves all extremities Plan Activity: advance as tolerated, fall precautions Diet: regular Wound: per wound nurse instructions (Stage IV sacral decubitus ulcer) Additional Instructions: Oxygen 2 L via nasal cannula as needed. Fall precautions.Mask, handwashing. Home isolation for 7 days or 72 hours after complete resolution of symptoms,. whichever is longer. Follow up with PCP. Plenty of oral fluids. Discharge with Coburn in place, bladder training and DC Coubrn if tolerated Follow up with: PRIMARY CAREMD [Primary Care Provider] - 3-5 Days VIKTOR BREWER MD [Staff Physician] - 7 Days
[2019-11-09 17:28] VITALS: BP 120/70
--- NOTE | 2019-11-09 22:31 | Progress Note ---
Assessment and Plan 1. Acute kidney injury: Likely vasomotor RAFAEL superimposed on CKD stage 3 in the setting of volume depletion, hypotension, SIRS/sepsis and obstructive uropathy. CT abdomen showed bilateral hydronephrosis. Creatinine in November 2018 was 2.1 which is likely his baseline. Continue IV fluids. Creatinine level is better, around his baseline. Monitor renal function. Avoid nephrotoxic agents. Meds dosage based on GFR. 2. FEN: Hypernatremia, 141 today, on IV D5W and DDAVP, monitor. Per RN he is drinking adequate fluids. Encouraged PO fluids. Hyperkalemia, improved, monitor. Metabolic acidosis, monitor. Monitor lytes and volume status. 3. Bilateral hydronephrosis: Secondary to bladder retention. S/p duncan catheter. 4. Bilateral pneumonia: COVID positive. 5. SIRS / Sepsis: Likely 2/2 PNA. 6. Suspected COVID-19 virus infection. 7. Metabolic encephalopathy: Toxic metabolic, POA. 8. R foot wound, POA. F/u with me in 1-3 weeks. - Subjective: Patient was seen and examined at the bedside. No acute events reported. - General Appearance General appearance: well-developed, appears stated age, not in distress HEENT: ATNC, YRN Neck: neck supple, trachea midline Respiratory: Clear to Ascultation Heart: regular, S1S2, no murmurs Gastrointestinal: soft, normoactive bowel sounds, not tender Integumentary: ulcer R foot sole Neurologic: alert, able to tell his name, able to move extremities, confused Ext: no edema, R flat foot, L BKA Subjective Date of service: 11/09/19 Principal diagnosis: ,+RAFAEL/CKD, bilateral pneumonia PUI?: Yes COVID19: Positive Objective - Vital Signs Vital signs: Vital Signs - 12hr 11/09/19 11/09/19 11:56 16:57 Temperature 97.3 F L 98.2 F Pulse Rate 94 H 94 H Respiratory 20 18 Rate Blood Pressure 122/64 120/70 O2 Sat by Pulse 92 95 Oximetry - Lab 10/31/19 05:32 11/09/19 04:21 Most recent lab results Calcium 8.2 mg/dL (8.4-10.2) L 11/09/19 04:21 Phosphorus 3.60 mg/dL (2.5-4.5) 11/09/19 04:21 Magnesium 2.10 mg/dL (1.7-2.3) 10/29/19 06:59 Urine Creatinine 86.8 mg/dL (0.1-20.0) H 10/28/19 14:55 Urine Sodium 42 mmol/L 10/28/19 14:55 Medications & Allergies - Medications Allergies/Adverse Reactions: Allergies No Known Allergies Allergy (Verified 01/05/15 14:31) Home Medications: Home Medications Medication Instructions Recorded Confirmed Last Taken Type hydrALAZINE [Apresoline TAB] 25 mg PO Q8HR #90 tablet 08/25/14 11/01/19 12/08/18 21:00 Rx Pregabalin [Lyrica] 200 mg PO TID 05/29/16 11/01/19 12/08/18 21:00 History Adult Probiotic 1 tab PO DAILY 11/01/19 11/01/19 Unknown History Aspirin BABY CHEW TAB 81 mg PO DAILY 11/01/19 11/01/19 Unknown History Baby Vitamin D3 2,000 units PO DAILY 11/01/19 11/01/19 Unknown History Brimonidine Tartrate 0.2% 1 drop OU QHS 11/01/19 11/01/19 Unknown History Colchicine 0.6 mg PO BID 11/01/19 11/01/19 Unknown History DUONEB *Not for PRN Use* 0.5 - 2.5 mg INHALATION Q6HR PRN 11/01/19 11/01/19 Unknown History Lipitor 10 mg PO QHS 11/01/19 11/01/19 Unknown History Sennosides [Senna] 8.6 mg PO Q24HR PRN 11/01/19 11/01/19 Unknown History traMADoL 50 mg PO Q6HR PRN 11/01/19 11/01/19 Unknown History Desmopressin [Ddavp] 0.1 mg PO BID tablet 11/09/19 Unknown Rx
== END 2019-11-09 19:04 | DRG 871 ==
LOC: ED 08:05 → 3A 13:12
PROVIDERS: ADMIT Internal Medicine; ATTEND Internal Medicine
DX: A41.89 Other specified sepsis (principal); J12.89 Other viral pneumonia; U07.1 COVID-19; L89.154 Pressure ulcer of sacral region, stage 4; G93.41 Metabolic encephalopathy; N17.0 Acute kidney failure with tubular necrosis; J96.01 Acute respiratory failure with hypoxia; E87.0 Hyperosmolality and hypernatremia; N13.30 Unspecified hydronephrosis; R65.20 Severe sepsis without septic shock; E11.51 Type 2 diabetes mellitus with diabetic peripheral angiopathy without gangrene; E11.22 Type 2 diabetes mellitus with diabetic chronic kidney disease; I12.9 Hypertensive chronic kidney disease with stage 1 through stage 4 chronic kidney disease, or unspecified chronic kidney disease; E87.6 Hypokalemia; D69.6 Thrombocytopenia, unspecified; N18.3 Chronic kidney disease, stage 3 (moderate); Z82.49 Family history of ischemic heart disease and other diseases of the circulatory system; Z89.512 Acquired absence of left leg below knee; Z83.3 Family history of diabetes mellitus; Z79.899 Other long term (current) drug therapy; Z87.442 Personal history of urinary calculi
CPT/HCPCS: 36415; 71250; 74176; 80048; 80053; 80076; 81001; 82140; 82570; 82728; 82962; 83615; 83690; 83735; 83935; 83970; 84100; 84145; 84295; 84300; 85007; 85025; 85379; 86140; 87040; 87086; 87400; 94760; G0378; 87502; J0456; J0610; J0692; J0696; J1205; J1630; J1650; J1815; J7030; J7050; J7070

== ENCOUNTER 2020-11-14 13:59 | Outpatient (CLI) | payer MEDICARE ==
--- NOTE | 2020-11-14 15:17 | Cat Scan Report ---
CT ABDOMEN PELVIS WITHOUT CONTRAST INDICATION / CLINICAL INFORMATION: MAIN. TECHNIQUE: Axial CT images were obtained through the abdomen and pelvis without IV contrast. All CT scans at [facility] are performed using CT dose reduction for ALARA by means of automated exposure control. COMPARISON: Previous images cannot be retrieved from the archive FINDINGS: LOWER CHEST: Linear scarring right middle lobe is present. Calcified hilar and subcarinal lymph nodes noted LIVER: No significant abnormality. GALLBLADDER: No significant abnormality. BILE DUCTS: No significant abnormality. PANCREAS: No significant abnormality. SPLEEN: No significant abnormality. ADRENALS: No significant abnormality. RIGHT KIDNEY and URETER: Extensive hydronephrosis with dilated ureters extending to the urinary bladd er.. Cortical thinning is present LEFT KIDNEY and URETER: Extensive hydronephrosis with dilated ureters extending to the urinary bladde r.. Cortical thinning is present STOMACH and SMALL BOWEL: No significant abnormality. COLON: No significant abnormality. APPENDIX: No significant abnormality. PERITONEUM: No free fluid. No free air. No fluid collection. LYMPH NODES: No significant adenopathy. AORTA and ARTERIES: Atherosclerotic calcified plaque abdominal aorta is major branches IVC and VEINS: No significant abnormality. URINARY BLADDER: Bladder distention with thickened wall is present REPRODUCTIVE ORGANS: No significant abnormality ADDITIONAL FINDINGS: Fat-containing right inguinal hernia. Multiple lymph nodes are present inguinal canal largest measuring 1.4 cm in short axis SKELETAL SYSTEM: No significant abnormality. IMPRESSION: 1. Bilateral hydronephrosis 2. Marked cortical thinning both kidneys 3. Right inguinal hernia 4. Lymphadenopathy both inguinal regions 5. Old lung disease Signer Name: Jarred San MD Signed: 11/14/2020 3:12 PM Workstation Name: [id number]
== END 2020-11-14 14:00 | disposition home or self-care (01) ==
LOC: CT 13:59
PROVIDERS: ATTEND Urology
DX: N13.39 Other hydronephrosis (principal); I70.0 Atherosclerosis of aorta; N32.89 Other specified disorders of bladder; N28.89 Other specified disorders of kidney and ureter; K40.90 Unilateral inguinal hernia, without obstruction or gangrene, not specified as recurrent; R59.0 Localized enlarged lymph nodes; N39.0 Urinary tract infection, site not specified
CPT/HCPCS: 74176